=== PATIENT | male | born 1950 ===

== ENCOUNTER 2016-11-11 13:03 | Inpatient (IN) ==
[2016-11-11] MEDS ORDERED: BISACODYL 5 MG TABLET PO PRN (15:27)
[2016-11-11] MEDS ORDERED: ACETAMINOPHEN 325 MG TABLET PO PRN (15:27)
[2016-11-11] MEDS ORDERED: MAGNESIUM SULF RIDER 4 GM in PREMIX 1 EACH IV PRN (15:27)
[2016-11-11] MEDS ORDERED: ONDANSETRON 4 MG/2 ML VIAL IV PRN (15:27)
[2016-11-11] MEDS ORDERED: MAGNESIUM SULF RIDER 2 GM in PREMIX 1 EACH IV PRN ×2 (15:27→15:36)
[2016-11-11] MEDS ORDERED: ZALEPLON 5 MG CAPSULE PO PRN (15:27)
[2016-11-11] MEDS ORDERED: DOCUSATE SODIUM 100 MG CAPSULE PO PRN (15:27)
[2016-11-11] MEDS ORDERED: POTASSIUM CHLORIDE RIDER 10 MEQ in PREMIX 1 EACH IV PRN (15:36)
[2016-11-11] MEDS ORDERED: DIAZEPAM 5 MG TABLET PO ONE (15:36)
[2016-11-11] MEDS ORDERED: diphenhydrAMINE CAP 25 MG CAPSULE PO ONE (15:36)
--- NOTE | 2016-11-11 16:07 | Cardiology History & Physical ---
Assessment and Plan - Time spent with patient Time spent with patient: Greater than 30 minutes (1) Chest pain Status: Acute Assessment and plan: SEE PLAN OF CARE LISTED BELOW Current Visit: Yes (2) Coronary artery disease Status: Chronic Assessment and plan: SEE PLAN OF CARE LISTED BELOW Current Visit: Yes (3) Hypertension Status: Chronic Assessment and plan: SEE PLAN OF CARE LISTED BELOW Current Visit: Yes (4) Dyslipidemia Status: Chronic Assessment and plan: SEE PLAN OF CARE LISTED BELOW Current Visit: Yes (5) Diabetes Status: Chronic Assessment and plan: SEE PLAN OF CARE LISTED BELOW Current Visit: Yes (6) Ischemic cardiomyopathy Status: Chronic Assessment and plan: SEE PLAN OF CARE LISTED BELOW Current Visit: Yes History of Present Illness Chief complaint: chest pain, known coronary artery disease History of present illness: Mr. Jones is a 66 year old male routinely followed by Dr. Olson. He was last seen in cardiology clinic 07/11/2016. Risk factors include: Age, known coronary artery disease, hypertension, dyslipidemia, diabetes, obesity and sedentary lifestyle. History of ischemic cardiomyopathy, EF 35%, mild per echo July 2016. Last cardiac catheterization was 09/26/2015 with the following noted: Conclusions: 1: Total occlusion of the mid right coronary artery filling via collaterals from the left septal perforators. 2: Total occlusion of the circumflex coronary artery at a prior stented site 3: Diffuse moderate to severe left ventricular hypokinesis with ejection fraction estimated to be in the 35% range 4: Normal end-diastolic pressures at rest. Patient presented to [facility] with complaints of right shoulder pain radiating in through the center of his chest. He was seen in evaluated in the emergency department of [facility] and transferred as a direct admission to our telemetry unit. His cardiac biomarkers have been negative and his EKG is unremarkable. Chest pain has been occurring intermittently for several days. He can identify no aggravating nor any alleviating factors. It did not cause nausea, vomiting or shortness of breath. He is unable to rate the discomfort on a scale of 1-10 but he is currently chest pain-free. He describes the discomfort as sharp and squeezing. ASSESSMENT/PLAN: 1. CHEST PAIN - has a history of known coronary artery disease. Chest pain is suspicious for angina. Dr. Olson has seen this patient, interviewed and examined patient. He has recommended patient undergo cardiac catheterization and we will keep him nothing by mouth after midnight tonight for left heart catheterization, possible right radial approach. I will verify he has had a dose of Lovenox, aspirin. Continue beta blockers and lipid- lowering agents as well as an EVELIN inhibitor if his blood pressure will allow for such. 2. KNOWN CAD - complicated CAD 3. HYPERTENSION - resume beta blockade and EVELIN inhibitor if possible. Adjust medications accordingly during hospital stay 4. DYSLIPIDEMIA - continue lipid-lowering agent. Fasting lipid profile morning 5. DIABETES - sliding scale insulin 6. ICM - echocardiogram was performed July 2016. EF 35%. At this point, we can consider repeating echocardiogram on an outpatient basis. Home Medications Medication Instructions Recorded Confirmed Type Aspirin [Ecotrin] 81 mg PO DAILY 04/03/15 09/26/15 History Glipizide [Glipizide Xl] 10 mg PO DAILY 04/03/15 09/26/15 History Lisinopril [Prinivil] 20 mg PO DAILY 04/03/15 09/26/15 History Metoprolol Succinate Xl [Toprol Xl] 50 mg PO DAILY 04/03/15 09/26/15 History Simvastatin [Zocor] 40 mg PO DAILY 04/03/15 09/26/15 History Insulin Detemir [Levemir] 65 unit SUBCUT BEDTIME 09/26/15 09/26/15 History Allergies Allergy/AdvReac Type Severity Reaction Status Date / Time Penicillins Allergy RASH Verified 04/03/15 06:46 Review of systems: REVIEW OF SYSTEMS: - Constitutional Constitutional: Absent: syncope, anorexia, fatigue, night sweats - EENT Eyes: Absent: blurry vision, loss of vision, diplopia Ears: Absent: decreased hearing, ear pain, ear discharge - Cardiovascular Cardiovascular: Present: chest pain with exertion and with exertion. Denies, dyspnea on exertion, edema, palpitations. Absent: chest pain with deep breath, claudication - Respiratory Respiratory: Denies JONES, cough. Absent: wheezing, hemoptysis, change in phlegm color - Gastrointestinal Gastrointestinal: Denies: constipation. Absent: abdominal pain, hematemesis, hematochezia, melena, change in bowel habits, nausea - Genitourinary Genitourinary: Absent: difficulty urinating, dysuria, urinary hesitancy, flank pain - Musculoskeletal Musculoskeletal: Present: back pain Absent: joint swelling, muscle cramps, muscle weakness - Neurological Neurological: Present: normal gait without frequent falls. Absent: dizziness, hemiparesis - Psychiatric Psychiatric: Absent: anxiety, depression, difficulty concentrating - Endocrine Endocrine: Absent: cold intolerance, heat intolerance, polyuria, polyphagia, polydipsia - Hematologic/Lymphatic Hematologic/Lymphatic: Present: easy bruising. Absent: easy bleeding -Integumentary Integumentary: Absent: lesions, rashes, skin breakdown Medical,Surgical,& Family Hx - Medical History Cardio: History of: CAD, Hypertension, SD Neurology: No history of: Seizures Endocrine: History of: Diabetes Mellitus (NIDDM) Gastrointestinal: History of: GERD - Surgical History Cardiac Surgeries: Sugical HX of: Cardiac Catheterization, Cardiac Surgery ( stents x 2) Abdominal Surgeries: Surgical HX of: Colonoscopy Patient denies: Cholecystectomy - Family History Family History: Reports;: Family Cancer (father, mother), Family Diabetes ( father), Family Hypertension (father,mother) - Social History Smoking Status: Never smoker Have you smoked in the last 12 months: No Frequency of Alcohol Use: None Type of Drug Use: None Cardiology Physical Exam - Constitutional Vitals: Vital Signs Temp Pulse Resp BP Pulse Ox 97.9 F 84 18 157/72 100 11/11/16 15:40 11/11/16 15:40 11/11/16 15:40 11/11/16 15:40 11/11/16 15:40 Intake and Output 11/10/16 11/11/16 11/11/16 23:59 07:59 15:59 Other: Weight 100.244 kg Patient Weight 11/11/16 23:59 Weight 100.244 kg Exam: General: Appears well with no apparent distress. Pleasant and cooperative. Appears comfortable. HEENT: PERRL, normocephalic, atraumatic. Mucous membranes moist. No jaundice noted. Conjunctiva moist and clear, sclerae anicteric Neck: No JVD/HJR, no thyromegaly or lymphadenopathy noted. No carotid bruit appreciated Cardiac: Regular rate and rhythm. No murmur rub or gallop. Lungs: Clear to auscultation without accessory muscle use to assist the respiratory pattern. Not requiring oxygen. Abdomen: Soft, bowel sounds normoactive. Nontender and nondistended. No abdominal bruit or thrill noted. No masses noted. Musculoskeletal: No fluid collection. Decreased range of motion is noted. Extremities: No clubbing, cyanosis noted. No edema noted. Upper extremity pulses 2+. Lower extremity pulses 2+. Capillary refill less than 3 seconds. Skin: No unusual lesions or rashes. No skin breakdown appreciated. Neuro: Awake, alert and oriented 3. Moves all extremities well without hemiparesis or paralysis. No essential tremor is appreciated. Result/EKG - Labs Lab Results: I have reviewed the past 24 hour labs - Diagnostic Findings Procedure: Chest x-ray: pending - EKG EKG results: interpreted by me EKG shows: sinus rhythm Quality Measures - VTE Contraindication to Pharmacological VTE Prophylaxis: Already on Theraputic Agent , No Prophylaxis Needed
[2016-11-11] MEDS ORDERED: ENOXAPARIN 100 MG/ML SYRINGE SUBCUT ONE (16:17)
[2016-11-11] MEDS ORDERED: GLUCAGON 1 MG VIAL IM PRN (16:17)
[2016-11-11] MEDS ORDERED: DEXTROSE 50% 25 GM/50 ML VIAL IV PRN (16:17)
[2016-11-11] MEDS ORDERED: FUROSEMIDE 40 MG/4 ML VIAL IV ONE (16:19)
--- NOTE | 2016-11-11 16:39 | XRay Report ---
Exam: Chest 2 views Date: November 11, 2016 at 4:28 PM Comparison: Chest one view portable September 26, 2015 Reason: Shortness of breath Findings: The cardiac silhouette is again enlarged, and there is scattered calcified plaque at the thoracic aorta. No focal consolidation, pneumothorax or pleural effusion is identified. No acute osseous process is seen. Impression: 1. Cardiomegaly. 2. No acute pulmonary process is identified. PROCEDURE INTERPRETED AT [facility] DEPARTMENT OF RADIOLOGY Final Report Signed by: Dr. Favian Carbajal
[2016-11-11] MEDS: ASPIRIN 325 MG TABLET PO SCH (16:56)
[2016-11-11] MEDS: ISOSORBIDE MONONITRATE 30 MG TABLET PO SCH (16:57)
[2016-11-11] MEDS: SODIUM CHLORIDE 0.45% 1,000 ML IV SCH (16:57)
[2016-11-11 17:06] LABS: Basophils # 0.1 10*3/uL (0.0-0.2); Basophils % 0.5 % (0.0-0.8); Eosinophils # 0.3 10*3/uL (0.0-0.87); Eosinophils % 3.4 % (0.00-10.9); Hematocrit 47.6 VOL% (42.0-52.0); Hemoglobin 15.6 GM/DL (14.0-18.0); Immature Granulocytes % 0.1 %; Immature Granulocytes Absolute 0.01 #; Lymphocytes # 2.1 10*3/uL (1.4-4.0); Lymphocytes % 22.6 % (21.2-54.2); Mean Corpuscular HGB Conc 32.8 GM/DL (32-36); Mean Corpuscular Hemoglobin 28 PG (27-34); Mean Corpuscular Volume 84.1 FL (87-102); Mean Platelet Volume 10.1 FL (9.6-12.0); Monocytes # 0.8 10*3/uL (0.11-0.8); Monocytes % 8.6 % (1.7-12.7); Neutrophils # 6.1 10*3/uL (1.4-7.4); Neutrophils % 64.8 % (38.7-73.9); Platelet Count 205 T/CUMM (130-400); Red Blood Count 5.66 MC/CUMM (3.8-5.5); Red Cell Distribution Width 13.2 % (9.3-17.3); White Blood Count 9.4 T/CUMM (4-12)
[2016-11-11] MEDS: INSULIN REGULAR 100 UNIT/ML SUBCUT SCH ×2 (17:08→21:49)
[2016-11-11 17:27] LABS: Troponin I Only 0.016 NG/ML (0.00-0.045)
[2016-11-11 17:31] LABS: Alanine Aminotransferase 21 U/L (16-61); Albumin 3.4 G/DL (3.4-5.0); Alkaline Phosphatase 56 U/L (45-117); Aspartate Amino Transferase 12 U/L (0-37); Bilirubin,Total < 0.39 MG/DL (0.2-1.0); Blood Urea Nitrogen 22 MG/DL (7-18); Calcium 8.6 MG/DL (8.5-10.1); Glucose 296 MG/DL (74-106); Potassium 4.8 MMOL/L (3.5-5.1); Sodium 143 MMOL/L (136-145); Total Protein 7.1 G/DL (6.4-8.3)
[2016-11-11] MEDS: INSULIN GLARGINE 100 UNIT/ML SUBCUT SCH (21:47)
[2016-11-12 00:58] LABS: Basophils # 0.1 10*3/uL (0.0-0.2); Basophils % 0.6 % (0.0-0.8); Eosinophils # 0.3 10*3/uL (0.0-0.87); Eosinophils % 4.1 % (0.00-10.9); Hematocrit 45.7 VOL% (42.0-52.0); Hemoglobin 15.2 GM/DL (14.0-18.0); Immature Granulocytes % 0.3 %; Immature Granulocytes Absolute 0.02 #; Lymphocytes # 2.2 10*3/uL (1.4-4.0); Lymphocytes % 27.6 % (21.2-54.2); Mean Corpuscular HGB Conc 33.3 GM/DL (32-36); Mean Corpuscular Hemoglobin 28 PG (27-34); Mean Corpuscular Volume 82.8 FL (87-102); Mean Platelet Volume 10.6 FL (9.6-12.0); Monocytes # 0.7 10*3/uL (0.11-0.8); Monocytes % 9.2 % (1.7-12.7); Neutrophils # 4.6 10*3/uL (1.4-7.4); Neutrophils % 58.2 % (38.7-73.9); Platelet Count 222 T/CUMM (130-400); Red Blood Count 5.52 MC/CUMM (3.8-5.5); Red Cell Distribution Width 13.1 % (9.3-17.3); White Blood Count 7.9 T/CUMM (4-12)
[2016-11-12 01:58] LABS: Albumin 3.5 G/DL (3.4-5.0); Bilirubin,Total 0.6 MG/DL (0.2-1.0); Calcium 8.5 MG/DL (8.5-10.1); Osmolality,Calculated 295.4 MOS/KG (273-304); Potassium 4.5 MMOL/L (3.5-5.1); Risk Ratio 4.19; Total Protein 7.1 G/DL (6.4-8.3); Troponin I Only < 0.015 NG/ML (0.00-0.045); VLDL CHOLESTEROL 38.2 MG/DL
[2016-11-12] MEDS ORDERED: DIAZEPAM 5 MG TABLET PO ONE (07:00)
[2016-11-12] MEDS ORDERED: diphenhydrAMINE CAP 25 MG CAPSULE PO ONE (07:00)
[2016-11-12] MEDS: ASPIRIN 325 MG TABLET PO SCH ×2 (07:58→08:29)
[2016-11-12] MEDS: METOPROLOL SUCCINATE XL 50 MG TABLET PO SCH ×2 (07:58→08:29)
[2016-11-12 08:21] LABS: Troponin I Only 0.018 NG/ML (0.00-0.045)
[2016-11-12] MEDS: INSULIN REGULAR 100 UNIT/ML SUBCUT SCH ×4 (08:28→22:07)
[2016-11-12] MEDS ORDERED: NITROGLYCERIN DRIP 50 MG/250 ML BOTTLE IV ONE (08:44)
[2016-11-12] MEDS ORDERED: MIDAZOLAM 2 MG/2 ML VIAL ONE (08:44)
[2016-11-12] MEDS ORDERED: VERAPAMIL 5 MG/2 ML VIAL ONE (08:44)
[2016-11-12] MEDS ORDERED: HEPARIN/NACL 0.9% 2 UNITS/ML 1,000 ML IV ONE (08:44)
[2016-11-12] MEDS ORDERED: fentaNYL 100 MCG/2 ML VIAL ONE (08:44)
[2016-11-12] MEDS ORDERED: LIDOCAINE 1% 20 ML VIAL ONE (08:44)
[2016-11-12] MEDS ORDERED: ENOXAPARIN 60 MG/0.6 ML SYRINGE ONE (08:58)
--- NOTE | 2016-11-12 09:03 | History and Physical Update ---
Sedation H&P Update - Sedation Plan for Sedation: moderate Patient Consent: Procedure disscussed with patient and patinet has consented., Risks and benefits were discussed with patient,including infection,, bleeding, injury to surrounding structures, seizure, temporary nerve, Patient understands and accepts potential risks/benefits and agrees to, proceed. ASA Class: III Airway Assessment: Class III: Soft palate, base of uvula visible
--- NOTE | 2016-11-12 09:51 | Cardiac Catheterization ---
Date of Procedure:: 11/12/16 Pre-op Diagnosis: Accelerated anginal chest pain with history known coronary disease Post-op diagnosis: same Procedure: Procedures performed: Left heart catheterization Coronary arteriography Left ventriculography [Right] femoral sheath angiography Mynx closure femoral arteriotomy site After obtaining informed consent the patient was brought to the catheterization lab where the [right] groin and right wrist was prepped and draped in the usual sterile manner. We initially attempted catheterization on the right wrist per unable to pass a wire satisfactorily into the right radial artery. I think he was significant vasospasm which would not allow passage of the wire to the brachial artery. At this point we elected to abort the radial attempt and proceed from the femoral artery. After local anesthesia a needle stick was made to the right femoral artery and a [6 Mal[place] sheath] was positioned without difficulty. A left heart catheterization was undertaken using first a Butch left diagnostic catheter. The catheter was advanced under fluoroscopy over a guidewire and positioned with its tip in the ostium of the left main coronary artery. Multiple angiograms were obtained of the left coronary artery in multiple views. After adequate angiogram to left coronary obtain this catheter was withdrawn and an AMRM right coronary catheter was advanced over a guidewire under fluoroscopic control where angiography of the right coronary artery was undertaken in multiple views. After adequate angiograms of the right coronary artery were obtained this catheter was withdrawn. A pigtail ventriculographic catheter was advanced over a guidewire under fluoroscopic control to the ascending aorta where it was advanced across the aortic valve and intraventricular hemodynamics were measured. A ventriculogram was obtained in the LAWSON projection and afterward a pullback was obtained from the ventricle to the aorta under hemodynamic monitoring and removed. At this point the patient underwent right femoral sheath angiography which demonstrated anatomy appropriate for Mynx closure. This was performed without difficulty and good hemostasis was obtained. The patient then was transferred back to the oliva having suffered no significant immediate complications. Hemodynamics: Please see the accompanying data sheet Coronary arteriography: Left coronary artery: The left main coronary artery is "double barrel". The circumflex coronary artery is completely occluded at a prior proximal circumflex stent site. The left anterior descending coronary artery is a large vessel that extends around the apex of the ventricle. In the proximal portion of the LAD is a calcified discrete 80% stenosis. The remainder of the LAD and its branches appeared to be free of significant obstructing lesions. There are several small diagonal to have ostial 80% disease noted. Right coronary artery: Right coronary is a large codominant vessel that is completely occluded in its midportion. The distal right fills via collaterals from the septal perforators of the left. Ventriculography: After injection of contrast in the left ventricle is noted be mildly enlarged with diffuse severe left ventricular hypokinesis. There is an area of inferobasal akinesis. Overall ejection fraction measures in the 30% range. Mitral and aortic structures appear normal by ventriculography. Conclusions: 1: Severe [place] three-vessel coronary disease as outlined above 2: Ischemic cardio myopathy ejection fraction in the 30% range 3: Mildly elevated end-diastolic pressures at rest 4: Mynx closure right femoral arteriotomy site 5: Unsuccessful attempt at catheterization from the right radial artery. Discussion and recommendations: Patient presents with accelerated anginal chest pain. He's now progressed his LAD disease to the point that surgical intervention should be considered. I feel the best approach will be surgical revascularization I'll asked the surgeons to review. I discussed this with the patient. Surgeon / Physician: Yonis Olson - Medications / Follow-up
[2016-11-12] MEDS: SIMVASTATIN 40 MG TABLET PO SCH (11:02)
[2016-11-12] MEDS: ENOXAPARIN 100 MG/ML SYRINGE SUBCUT SCH ×2 (11:02→22:07)
[2016-11-12] MEDS: PANTOPRAZOLE 40 MG TABLET PO SCH (11:02)
[2016-11-12] MEDS: ISOSORBIDE MONONITRATE 30 MG TABLET PO SCH (11:02)
[2016-11-12] MEDS: SODIUM CHLORIDE 0.45% 1,000 ML IV SCH (11:03)
--- NOTE | 2016-11-12 13:19 | Cardiothoracic Progress Note ---
Cardiothoracic Subjective Interval history: Patient is a 66-year-old man who presents with a history of coronary artery disease and recent onset of increasing substernal chest discomfort. Cardiac catheterization today shows significant obstruction and anterior descending coronary artery which is the only patent major coronary artery left. The stented circumflex coronary artery is totally occluded as is the right coronary artery. I agree with Dr. Olson with the patient needs intravenous revascularization of his LAD and hopefully there will be vessels that can be grafted in the circumflex distribution as well as the right distribution. I've discussed this with him and he is agreeable to surgery and we will plan for this on Thursday. Patient is to remain in the hospital until then. Exam (Progress Note) - Constitutional Vitals: Period Temp Pulse Resp BP Sys/Wong Pulse Ox Last 24 Hr 96.3 F-98.0 F 63-84 16-20 137-163/66-94 92-100 Result/EKG - Labs CBC & BMP: 11/12/16 00:40 11/12/16 00:40 Labs: Laboratory Results - last 24 hr 11/11/16 11/11/16 11/11/16 16:48 16:48 16:48 WBC 9.4 RBC 5.66 H Hgb 15.6 Hct 47.6 MCV 84.1 L MCH 28 MCHC 32.8 RDW 13.2 Plt Count 205 MPV 10.1 Neut % (Auto) 64.8 Lymph % (Auto) 22.6 [place] % (Auto) 8.6 Eos % (Auto) 3.4 Baso % (Auto) 0.5 Neut # (Auto) 6.1 Lymph # (Auto) 2.1 Cedar # (Auto) 0.8 Eos # (Auto) 0.3 Baso # (Auto) 0.1 Immature Gran % 0.1 Nucleated RBC % 0.0 Immature Gran # 0.01 Nucleated RBCs # 0.00 Sodium 143 Potassium 4.8 Chloride 106 Carbon Dioxide 26 Anion Gap 15.8 H BUN 22 H Creatinine 1.20 GFR Calculation 79 BUN/Creatinine Ratio 18.00 Glucose 296 H POC Glucose Calculated Osmolality 298.0 Calcium 8.6 Total Bilirubin < 0.39 AST 12 ALT 21 Alkaline Phosphatase 56 Total Creatine Kinase CK-MB (CK-2) Troponin I B-Natriuretic Peptide 192 H Total Protein 7.1 Albumin 3.4 Globulin 3.7 H Albumin/Globulin Ratio 0.9 L Triglycerides Cholesterol LDL Cholesterol VLDL Cholesterol HDL Cholesterol Heart Disease Risk Ratio TSH 3rd Generation 1.760 11/11/16 11/11/16 11/11/16 16:48 17:06 21:11 WBC RBC Hgb Hct MCV MCH MCHC RDW Plt Count MPV Neut % (Auto) Lymph % (Auto) [place] % (Auto) Eos % (Auto) Baso % (Auto) Neut # (Auto) Lymph # (Auto) [place] # (Auto) Eos # (Auto) Baso # (Auto) Immature Gran % Nucleated RBC % Immature Gran # Nucleated RBCs # Sodium Potassium Chloride Carbon Dioxide Anion Gap BUN Creatinine GFR Calculation BUN/Creatinine Ratio Glucose POC Glucose 279 H 289 H Calculated Osmolality Calcium Total Bilirubin AST ALT Alkaline Phosphatase Total Creatine Kinase 81 CK-MB (CK-2) 1.9 Troponin I 0.016 B-Natriuretic Peptide Total Protein Albumin Globulin Albumin/Globulin Ratio Triglycerides Cholesterol LDL Cholesterol VLDL Cholesterol HDL Cholesterol Heart Disease Risk Ratio TSH 3rd Generation 11/12/16 11/12/16 11/12/16 00:40 00:40 00:40 WBC 7.9 RBC 5.52 H Hgb 15.2 Hct 45.7 MCV 82.8 L MCH 28 MCHC 33.3 RDW 13.1 Plt Count 222 MPV 10.6 Neut % (Auto) 58.2 Lymph % (Auto) 27.6 [place]edar % (Auto) 9.2 Eos % (Auto) 4.1 Baso % (Auto) 0.6 Neut # (Auto) 4.6 Lymph # (Auto) 2.2 Cedar # (Auto) 0.7 Eos # (Auto) 0.3 Baso # (Auto) 0.1 Immature Gran % 0.3 Nucleated RBC % 0.0 Immature Gran # 0.02 Nucleated RBCs # 0.00 Sodium 140 Potassium 4.5 Chloride 101 Carbon Dioxide 27 Anion Gap 16.5 H BUN 23 H Creatinine 1.30 GFR Calculation 72 BUN/Creatinine Ratio 17.00 Glucose 334 H POC Glucose Calculated Osmolality 295.4 Calcium 8.5 Total Bilirubin 0.60 AST 10 ALT 21 Alkaline Phosphatase 59 Total Creatine Kinase 72 CK-MB (CK-2) 1.6 Troponin I < 0.015 B-Natriuretic Peptide Total Protein 7.1 Albumin 3.5 Globulin 3.6 H Albumin/Globulin Ratio 0.9 L Triglycerides 191 H Cholesterol 155 LDL Cholesterol 108.0 VLDL Cholesterol 38.2 HDL Cholesterol 37 L Heart Disease Risk Ratio 4.19 [facility] 3rd Generation 11/12/16 11/12/16 11/12/16 00:40 07:22 08:17 WBC RBC Hgb Hct MCV MCH MCHC RDW Plt Count MPV Neut % (Auto) Lymph % (Auto) [place]edar % (Auto) Eos % (Auto) Baso % (Auto) Neut # (Auto) Lymph # (Auto) [place] # (Auto) Eos # (Auto) Baso # (Auto) Immature Gran % Nucleated RBC % Immature Gran # Nucleated RBCs # Sodium Potassium Chloride Carbon Dioxide Anion Gap BUN Creatinine GFR Calculation BUN/Creatinine Ratio Glucose POC Glucose 140 H Calculated Osmolality Calcium Total Bilirubin AST ALT Alkaline Phosphatase Total Creatine Kinase 80 CK-MB (CK-2) 1.6 Troponin I 0.018 B-Natriuretic Peptide 190 H Total Protein Albumin Globulin Albumin/Globulin Ratio Triglycerides Cholesterol LDL Cholesterol VLDL Cholesterol HDL Cholesterol Heart Disease Risk Ratio [facility] 3rd Generation 11/12/16 11:59 WBC RBC Hgb Hct MCV MCH MCHC RDW Plt Count MPV Neut % (Auto) Lymph % (Auto) Cedar % (Auto) Eos % (Auto) Baso % (Auto) Neut # (Auto) Lymph # (Auto) Cedar # (Auto) Eos # (Auto) Baso # (Auto) Immature Gran % Nucleated RBC % Immature Gran # Nucleated RBCs # Sodium Potassium Chloride Carbon Dioxide Anion Gap BUN Creatinine GFR Calculation BUN/Creatinine Ratio Glucose POC Glucose 107 H Calculated Osmolality Calcium Total Bilirubin AST ALT Alkaline Phosphatase Total Creatine Kinase CK-MB (CK-2) Troponin I B-Natriuretic Peptide Total Protein Albumin Globulin Albumin/Globulin Ratio Triglycerides Cholesterol LDL Cholesterol VLDL Cholesterol HDL Cholesterol Heart Disease Risk Ratio [facility] 3rd Generation Quality Measures - VTE Contraindication to Pharmacological VTE Prophylaxis: Already on Theraputic Agent , No Prophylaxis Needed
[2016-11-12] MEDS ORDERED: GLUCAGON 1 MG VIAL IM PRN (13:20)
[2016-11-12] MEDS ORDERED: DEXTROSE 50% 25 GM/50 ML VIAL IV PRN (13:20)
[2016-11-12] MEDS: SODIUM CHLORIDE 0.9% 1,000 ML IV SCH (13:49)
--- NOTE | 2016-11-12 14:15 | Cardiology Progress Note ---
Assessment and Plan (1) Coronary artery disease Status: Chronic Assessment and plan: He is for surgical revascularization. I appreciate Dr. Andrade's assistance Current Visit: Yes Cardiology - PN: Subj Interval history: This patient is undergoing cardiac catheterization demonstrating multivessel disease for surgical revascularization. He is stable and doing well and our plan will be to continue anticoagulation and antianginals awaiting surgery. Exam (Progress Note) - Constitutional Vitals: Period Temp Pulse Resp BP Sys/Wong Pulse Ox Last 24 Hr 96.3 F-98.0 F 63-84 16-20 137-182/66-94 92-100 Result/EKG - Labs CBC & BMP: 11/12/16 00:40 11/12/16 00:40 Labs: Laboratory Results - last 24 hr 11/11/16 11/11/16 11/11/16 16:48 16:48 16:48 WBC 9.4 RBC 5.66 H Hgb 15.6 Hct 47.6 MCV 84.1 L MCH 28 MCHC 32.8 RDW 13.2 Plt Count 205 MPV 10.1 Neut % (Auto) 64.8 Lymph % (Auto) 22.6 [place] % (Auto) 8.6 Eos % (Auto) 3.4 Baso % (Auto) 0.5 Neut # (Auto) 6.1 Lymph # (Auto) 2.1 [place] # (Auto) 0.8 Eos # (Auto) 0.3 Baso # (Auto) 0.1 Immature Gran % 0.1 Nucleated RBC % 0.0 Immature Gran # 0.01 Nucleated RBCs # 0.00 Sodium 143 Potassium 4.8 Chloride 106 Carbon Dioxide 26 Anion Gap 15.8 H BUN 22 H Creatinine 1.20 GFR Calculation 79 BUN/Creatinine Ratio 18.00 Glucose 296 H POC Glucose Calculated Osmolality 298.0 Calcium 8.6 Total Bilirubin < 0.39 AST 12 ALT 21 Alkaline Phosphatase 56 Total Creatine Kinase CK-MB (CK-2) Troponin I B-Natriuretic Peptide 192 H Total Protein 7.1 Albumin 3.4 Globulin 3.7 H Albumin/Globulin Ratio 0.9 L Triglycerides Cholesterol LDL Cholesterol VLDL Cholesterol HDL Cholesterol Heart Disease Risk Ratio TSH 3rd Generation 1.760 11/11/16 11/11/16 11/11/16 16:48 17:06 21:11 WBC RBC Hgb Hct MCV MCH MCHC RDW Plt Count MPV Neut % (Auto) Lymph % (Auto) [place] % (Auto) Eos % (Auto) Baso % (Auto) Neut # (Auto) Lymph # (Auto) [place] # (Auto) Eos # (Auto) Baso # (Auto) Immature Gran % Nucleated RBC % Immature Gran # Nucleated RBCs # Sodium Potassium Chloride Carbon Dioxide Anion Gap BUN Creatinine GFR Calculation BUN/Creatinine Ratio Glucose POC Glucose 279 H 289 H Calculated Osmolality Calcium Total Bilirubin AST ALT Alkaline Phosphatase Total Creatine Kinase 81 CK-MB (CK-2) 1.9 Troponin I 0.016 B-Natriuretic Peptide Total Protein Albumin Globulin Albumin/Globulin Ratio Triglycerides Cholesterol LDL Cholesterol VLDL Cholesterol HDL Cholesterol Heart Disease Risk Ratio [facility] 3rd Generation 11/12/16 11/12/16 11/12/16 00:40 00:40 00:40 WBC 7.9 RBC 5.52 H Hgb 15.2 Hct 45.7 MCV 82.8 L MCH 28 MCHC 33.3 RDW 13.1 Plt Count 222 MPV 10.6 Neut % (Auto) 58.2 Lymph % (Auto) 27.6 [place] % (Auto) 9.2 Eos % (Auto) 4.1 Baso % (Auto) 0.6 Neut # (Auto) 4.6 Lymph # (Auto) 2.2 [place] # (Auto) 0.7 Eos # (Auto) 0.3 Baso # (Auto) 0.1 Immature Gran % 0.3 Nucleated RBC % 0.0 Immature Gran # 0.02 Nucleated RBCs # 0.00 Sodium 140 Potassium 4.5 Chloride 101 Carbon Dioxide 27 Anion Gap 16.5 H BUN 23 H Creatinine 1.30 GFR Calculation 72 BUN/Creatinine Ratio 17.00 Glucose 334 H POC Glucose Calculated Osmolality 295.4 Calcium 8.5 Total Bilirubin 0.60 AST 10 ALT 21 Alkaline Phosphatase 59 Total Creatine Kinase 72 CK-MB (CK-2) 1.6 Troponin I < 0.015 B-Natriuretic Peptide Total Protein 7.1 Albumin 3.5 Globulin 3.6 H Albumin/Globulin Ratio 0.9 L Triglycerides 191 H Cholesterol 155 LDL Cholesterol 108.0 VLDL Cholesterol 38.2 HDL Cholesterol 37 L Heart Disease Risk Ratio 4.19 [facility] 3rd Generation 11/12/16 11/12/16 11/12/16 00:40 07:22 08:17 WBC RBC Hgb Hct MCV MCH MCHC RDW Plt Count MPV Neut % (Auto) Lymph % (Auto) [place] % (Auto) Eos % (Auto) Baso % (Auto) Neut # (Auto) Lymph # (Auto) [place] # (Auto) Eos # (Auto) Baso # (Auto) Immature Gran % Nucleated RBC % Immature Gran # Nucleated RBCs # Sodium Potassium Chloride Carbon Dioxide Anion Gap BUN Creatinine GFR Calculation BUN/Creatinine Ratio Glucose POC Glucose 140 H Calculated Osmolality Calcium Total Bilirubin AST ALT Alkaline Phosphatase Total Creatine Kinase 80 CK-MB (CK-2) 1.6 Troponin I 0.018 B-Natriuretic Peptide 190 H Total Protein Albumin Globulin Albumin/Globulin Ratio Triglycerides Cholesterol LDL Cholesterol VLDL Cholesterol HDL Cholesterol Heart Disease Risk Ratio [facility] 3rd Generation 11/12/16 11:59 WBC RBC Hgb Hct MCV MCH MCHC RDW Plt Count MPV Neut % (Auto) Lymph % (Auto) [place] % (Auto) Eos % (Auto) Baso % (Auto) Neut # (Auto) Lymph # (Auto) [place] # (Auto) Eos # (Auto) Baso # (Auto) Immature Gran % Nucleated RBC % Immature Gran # Nucleated RBCs # Sodium Potassium Chloride Carbon Dioxide Anion Gap BUN Creatinine GFR Calculation BUN/Creatinine Ratio Glucose POC Glucose 107 H Calculated Osmolality Calcium Total Bilirubin AST ALT Alkaline Phosphatase Total Creatine Kinase CK-MB (CK-2) Troponin I B-Natriuretic Peptide Total Protein Albumin Globulin Albumin/Globulin Ratio Triglycerides Cholesterol LDL Cholesterol VLDL Cholesterol HDL Cholesterol Heart Disease Risk Ratio TSH 3rd Generation Quality Measures - VTE Contraindication to Pharmacological VTE Prophylaxis: Already on Theraputic Agent , No Prophylaxis Needed
--- NOTE | 2016-11-12 15:46 | Hospitalist Consult Note ---
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 Jones is a 66 year old male consulted per cardiology for diabetes management. He has had a cardiac cath today and is to have bipass surgery on thursday11/17/2016. He states he has been controlled at home with BS 140 -200. states he is suppose to take Levemir SQ 60U in am and 65U in pm but he has been taking 60U at bedtime because he is too busy to take it in the morning. He has no history of CHF. CC: Yonis Olson MD - Home Medications and Allergies Home Medications: Home Medications Medication Instructions Recorded Confirmed Type Aspirin [Ecotrin] 81 mg PO DAILY 04/03/15 11/11/16 History Glipizide [Glipizide Xl] 10 mg PO DAILY 04/03/15 11/11/16 History Lisinopril [Prinivil] 20 mg PO DAILY 04/03/15 11/11/16 History Metoprolol Succinate Xl [Toprol Xl] 50 mg PO DAILY 04/03/15 11/11/16 History Simvastatin [Zocor] 40 mg PO DAILY 04/03/15 11/11/16 History Isosorbide Mononitrate [Isosorbide 30 mg PO DAILY 11/11/16 11/11/16 History Mononitrate ER] Saxagliptin HCl [Onglyza] 2.5 mg PO DAILY 11/11/16 11/11/16 History Allergies/Adverse Reactions: Allergies Allergy/AdvReac Type Severity Reaction Status Date / Time Penicillins Allergy RASH Verified 04/03/15 06:46 Medical,Surgical,& Family Hx - Medical History Cardio: History of: CAD, Hypertension, CA Neurology: No history of: Seizures Endocrine: History of: Diabetes Mellitus (NIDDM) Gastrointestinal: History of: GERD - Surgical History Cardiac Surgeries: Sugical HX of: Cardiac Catheterization, Cardiac Surgery ( stents x 2) Abdominal Surgeries: Surgical HX of: Colonoscopy Patient denies: Cholecystectomy - Family History Family History: Reports;: Family Cancer (father, mother), Family Diabetes ( father), Family Hypertension (father,mother) - Social History Smoking Status: Never smoker Frequency of Alcohol Use: None Type of Drug Use: None - Constitutional Constitutional: Absent: chills, fever(s) - EENT Nose, mouth and throat: Absent: nasal congestion, sore throat - Respiratory Respiratory: Absent: cough, wheezing - Gastrointestinal Gastrointestinal: Absent: abdominal pain, bloating, nausea, vomiting - Neurological Neurological: Absent: confusion, headache(s), syncope - Psychiatric Psychiatric: Absent: confusion Exam - Constitutional Vitals: Period Temp Pulse Resp BP Sys/Wong Pulse Ox Last 24 Hr 96.3 F-98.0 F 63-81 16-20 124-182/66-94 92-98 General appearance: no no acute distress - Head Head exam: Present: normocephalic - Neck Neck exam: Present: normal inspection - Respiratory Respiratory exam: Present: clear to auscultation bilaterally. Absent: chest wall tenderness, rales, rhonchi, wheezes - Cardiovascular Cardiovascular exam: Present: regular rate and rhythm - GI/Abdominal GI/Abdominal exam: Present: soft. Absent: distended, guarding, tenderness, rebound - Skin Skin exam: Present: warm, dry Results - Labs CBC & BMP: 11/12/16 00:40 11/12/16 00:40 Quality Measures - VTE Contraindication to Pharmacological VTE Prophylaxis: Already on Theraputic Agent , No Prophylaxis Needed <Breanna Ramirez - Last Filed: 11/12/16 17:35> Assessment and Plan (1) Chest pain Status: Acute Assessment and plan: Status post cardiac cath shows three-vessel disease plan for CABG on Thursday, currently chest pain-free Current Visit: Yes (2) Coronary artery disease Status: Chronic Assessment and plan: Status post cardiac cath severe coronary disease 3 vessels with an EF of 30% Current Visit: Yes (3) Hypertension Status: Chronic Assessment and plan: Well controlled continue coreg, isosorbide, losartan Current Visit: Yes (4) Dyslipidemia Status: Chronic Assessment and plan: Cholesterol numbers look good continue simvastatin Current Visit: Yes (5) Diabetes Status: Chronic Assessment and plan: Patient was started on Lantus 65 units at bedtime. Hemoglobin A1c is 10.2 blood sugars much better today. 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 Jones is a 66 year old male seen and examined. Consultation reviewed and edited. Plan for CABG on Thursday. We will check an hemoglobin A1c and an ABG CC: Yonis Olson MD Medical,Surgical,& Family Hx - Social History Marital Status: Lives With:: Spouse Functional capacity: independent ambulation - Constitutional Constitutional: Absent: headache(s) - EENT Eyes: Absent: blurry vision, diplopia Ears: Absent: decreased hearing, ear discharge - Cardiovascular Cardiovascular: Present: chest pain at rest. Absent: dyspnea, dyspnea on exertion, edema - Respiratory Respiratory: Absent: dyspnea, dyspnea on exertion - Genitourinary Genitourinary: Absent: dysuria, nocturia - Musculoskeletal Musculoskeletal: Absent: arthralgias, joint swelling - Psychiatric Psychiatric: Absent: depression - Endocrine Endocrine: Present: fatigue. Absent: cold intolerance, heat intolerance - Hematologic/Lymphatic Hematologic/Lymphatic: Absent: easy bleeding, easy bruising Exam - Constitutional Vitals: Period Temp Pulse Resp BP Sys/Wong Pulse Ox Last 24 Hr 96.3 F-98.0 F 63-81 16-20 124-182/62-94 92-98 General appearance: no over weight - Head Head exam: Present: normal inspection - Eye Eye exam: Present: EOMI. Absent: scleral icterus Pupils: Present: ELBA, normal accommodation - ENT ENT exam: Present: normal exam, normal external ear exam - Cardiovascular Cardiovascular exam: Absent: systolic murmur - Extremities Exam Extremities exam: Present: normal inspection, normal capillary refill - Neurological Exam Neurological exam: Present: alert, oriented X3, CN II-XII intact, reflexes normal. Absent: motor sensory deficit - Psychiatric Psychiatric exam: Present: normal affect, normal mood Results - Labs CBC & BMP: 11/12/16 00:40 11/12/16 00:40 Lab Results: I have reviewed the past 24 hour labs - Diagnostic Findings Procedure: Chest x-ray: report reviewed by me (nothing acute )
[2016-11-12] MEDS: CARVEDILOL 6.25 MG TABLET PO SCH (22:07)
[2016-11-12] MEDS: INSULIN GLARGINE 100 UNIT/ML SUBCUT SCH (22:08)
[2016-11-13 04:07] LABS: ABG Base Excess 1.3 MMOL/L (-2.5-2.5); ABG HCO3 24.8 MMOL/L (20-26); ABG Oxygen Saturation 94.6 % (95-100); ABG PCO2 35.8 MM HG (35-48); ABG PH 7.458 (7.35-7.45); ABG PO2 71.5 MM HG (80-95); ABG TCO2 25.9 MMOL/L (23-27); Allen Test Positive; Pt O2 Delivery Device Room Air
--- NOTE | 2016-11-13 06:23 | Cardiothoracic Progress Note ---
Cardiothoracic Subjective Interval history: Patient is pain-free and is agreeable to remaining in the hospital until bypass surgery on Thursday. Exam (Progress Note) - Constitutional Vitals: Period Temp Pulse Resp BP Sys/Wong Pulse Ox Last 24 Hr 97.0 F-98.0 F 63-81 16-20 124-182/62-94 94-99 Result/EKG - Labs CBC & BMP: 11/12/16 00:40 11/12/16 00:40 Labs: Laboratory Results - last 24 hr 11/12/16 11/12/16 11/12/16 07:22 08:17 11:59 ABG pH ABG pCO2 ABG pO2 ABG HCO3 ABG Total CO2 ABG O2 Saturation ABG Base Excess FiO2 POC Glucose 140 H 107 H Hemoglobin A1c Total Creatine Kinase 80 CK-MB (CK-2) 1.6 Troponin I 0.018 11/12/16 11/12/16 11/12/16 15:56 16:02 19:06 ABG pH ABG pCO2 ABG pO2 ABG HCO3 ABG Total CO2 ABG O2 Saturation ABG Base Excess FiO2 POC Glucose 154 H 179 H Hemoglobin A1c 10.2 H Total Creatine Kinase CK-MB (CK-2) Troponin I 11/13/16 04:00 ABG pH 7.458 H ABG pCO2 35.8 ABG pO2 71.5 L ABG HCO3 24.8 ABG Total CO2 25.9 ABG O2 Saturation 94.6 L ABG Base Excess 1.3 FiO2 21.00 POC Glucose Hemoglobin A1c Total Creatine Kinase CK-MB (CK-2) Troponin I Quality Measures - VTE Contraindication to Pharmacological VTE Prophylaxis: Already on Theraputic Agent , No Prophylaxis Needed
[2016-11-13 06:39] LABS: Basophils % 0.5 % (0.0-0.8); Eosinophils # 0.3 10*3/uL (0.0-0.87); Eosinophils % 3.9 % (0.00-10.9); Hematocrit 46.1 VOL% (42.0-52.0); Hemoglobin 15.4 GM/DL (14.0-18.0); Immature Granulocytes % 0.3 %; Immature Granulocytes Absolute 0.02 #; Lymphocytes # 1.9 10*3/uL (1.4-4.0); Lymphocytes % 24.7 % (21.2-54.2); Mean Corpuscular HGB Conc 33.4 GM/DL (32-36); Mean Corpuscular Hemoglobin 28 PG (27-34); Mean Corpuscular Volume 82.3 FL (87-102); Monocytes # 0.8 10*3/uL (0.11-0.8); Neutrophils # 4.7 10*3/uL (1.4-7.4); Neutrophils % 60.6 % (38.7-73.9); Platelet Count 208 T/CUMM (130-400); White Blood Count 7.7 T/CUMM (4-12)
[2016-11-13 07:12] LABS: Bilirubin,Total 0.5 MG/DL (0.2-1.0); Calcium 8.2 MG/DL (8.5-10.1); Osmolality,Calculated 289.7 MOS/KG (273-304); Potassium 4.5 MMOL/L (3.5-5.1); Total Protein 6.4 G/DL (6.4-8.3)
--- NOTE | 2016-11-13 07:47 | XRay Report ---
Exam: XR chest 2V Date: 11/13/2016 7:41 AM Indication: Coronary artery disease Comparison: 11/11/2016 Technical: PA lateral Findings: Cardiomegaly is present with ASVD. Mild interstitial thickening in the infrahilar region on the left. Small granulomas suspected reticular nodular densities in the right upper mid chest measuring approximately 3 to 4 mm. Degenerative changes are present thoracic spine mildly. External cardiac leads are present. No pneumothorax. Impression: 1. Cardiomegaly without overt decompensation present. PROCEDURE INTERPRETED AT [facility] DEPARTMENT OF RADIOLOGY Final Report Signed by: Dr. Rafael Jessica
--- NOTE | 2016-11-13 07:49 | EKG Report ---
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
[2016-11-13] MEDS: INSULIN REGULAR 100 UNIT/ML SUBCUT SCH ×4 (09:05→21:01)
[2016-11-13] MEDS: CARVEDILOL 6.25 MG TABLET PO SCH ×2 (09:49→21:00)
[2016-11-13] MEDS: SIMVASTATIN 40 MG TABLET PO SCH (09:49)
[2016-11-13] MEDS: PANTOPRAZOLE 40 MG TABLET PO SCH (09:49)
[2016-11-13] MEDS: ASPIRIN EC 81 MG TABLET PO SCH (09:49)
[2016-11-13] MEDS: LOSARTAN 25 MG TABLET PO SCH (09:50)
[2016-11-13] MEDS: ISOSORBIDE MONONITRATE 30 MG TABLET PO SCH (09:50)
[2016-11-13] MEDS: ENOXAPARIN 100 MG/ML SYRINGE SUBCUT SCH ×2 (09:51→23:14)
[2016-11-13] MEDS: SODIUM CHLORIDE 0.45% 1,000 ML IV SCH (10:36)
--- NOTE | 2016-11-13 14:23 | Cardiology Progress Note ---
I, Sona Rodriguez RN, am scribing for, and in the presence of, Yonis Olson MD 14:23. Assessment and Plan (1) Coronary artery disease Status: Chronic Assessment and plan: Patient is status post a left heart catheterization yesterday. He was noted to have multivessel disease and is for surgical revascularization. Dr. Andrade was consulted and saw the patient yesterday. He plans for CABG Thursday. We will continue anticoagulation and anginal while patient awaits surgery. 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 Current Visit: Yes (4) Hypertension Status: Chronic Assessment and plan: This is clinically stable. Continue current plan of care. Current Visit: Yes (5) Ischemic cardiomyopathy Status: Chronic Assessment and plan: echocardiogram was performed July 2016. EF 35%. At this point, we can consider repeating echocardiogram on an outpatient basis. Current Visit: Yes Cardiology - PN: Subj Interval history: Patient is status post a left heart catheterization yesterday. He was noted to have multivessel disease and is for surgical revascularization. Dr. Andrade was consulted and saw the patient yesterday. He plans for CABG Thursday. We will continue anticoagulation and anginal while patient awaits surgery. Patient was seen on telemetry. He was resting in bed in no acute distress. He did well overnight and was without any new cardiac complaints. Currently he is chest pain-free. He also denies shortness of breath, nausea, diaphoresis and palpitations. His right groin is soft without hematoma, bleeding or bruit. Distal pulses are 2+. Vital signs are stable. Review of labs are unremarkable. Patient is currently sinus rhythm with heart rates in the 70s without any overt arrhythmias or ectopy noted. We will continue to monitor patient on telemetry. This patient continues stable. His cath site is healing well and not having any significant problems and her plan is to continue close follow-up and observation anticipating coronary bypass grafting on 17 January. I have discussed in detail the particulars of this case and I have examined the patient and reviewed the patient's chart both current and old. I was directly involved in the patient's evaluation and management and I completely agree with Sona Rodriguez RN regarding this patient's evaluation and treatment plan. Exam (Progress Note) - Constitutional Vitals: Period Temp Pulse Resp BP Sys/Wong Pulse Ox Last 24 Hr 97.0 F-98.0 F 63-81 16-20 124-182/62-94 94-99 General appearance: no acute distress, over weight - Head Head exam: Present: normal inspection, normocephalic, atraumatic - Neck Neck exam: Present: normal inspection. Absent: lymphadenopathy, tenderness, thyromegaly - Respiratory Respiratory exam: Present: clear to auscultation bilaterally. Absent: accessory muscle use, chest wall tenderness, rales, rhonchi, stridor, wheezes - Cardiovascular Cardiovascular exam: Present: regular rate and rhythm. Absent: bradycardia, carotid bruit, gallop, rubs, systolic murmur, tachycardia - GI/Abdominal GI/Abdominal exam: Present: normal bowel sounds, soft. Absent: distended, firm , mass, tenderness - Extremities Exam Extremities exam: Present: normal inspection, normal capillary refill, other (2 + lower extremity pulses, right groin dressing dry and intact.). Absent: calf tenderness, edema - Neurological Exam Neurological exam: Present: alert, oriented X3 - Psychiatric Psychiatric exam: Present: normal affect, normal mood. Absent: agitated, anxious, depressed - Skin Skin exam: Present: normal color, warm, dry. Absent: cyanosis Result/EKG - Labs CBC & BMP: 11/13/16 05:11 11/13/16 05:11 Lab Results: I have reviewed the past 24 hour labs Labs: Laboratory Results - last 24 hr 11/12/16 11/12/16 11/12/16 11:59 15:56 16:02 WBC RBC Hgb Hct MCV MCH MCHC RDW Plt Count MPV Neut % (Auto) Lymph % (Auto) [place] % (Auto) Eos % (Auto) Baso % (Auto) Neut # (Auto) Lymph # (Auto) [place] # (Auto) Eos # (Auto) Baso # (Auto) Immature Gran % Nucleated RBC % Immature Gran # Nucleated RBCs # ABG pH ABG pCO2 ABG pO2 ABG HCO3 ABG Total CO2 ABG O2 Saturation ABG Base Excess FiO2 Sodium Potassium Chloride Carbon Dioxide Anion Gap BUN Creatinine GFR Calculation BUN/Creatinine Ratio Glucose POC Glucose 107 H 154 H Hemoglobin A1c 10.2 H Calculated Osmolality Calcium Total Bilirubin AST ALT Alkaline Phosphatase Total Protein Albumin Globulin Albumin/Globulin Ratio 11/12/16 11/13/16 11/13/16 19:06 04:00 05:11 WBC 7.7 RBC 5.60 H Hgb 15.4 Hct 46.1 MCV 82.3 L MCH 28 MCHC 33.4 RDW 13.0 Plt Count 208 MPV 11.0 Neut % (Auto) 60.6 Lymph % (Auto) 24.7 [place] % (Auto) 10.0 Eos % (Auto) 3.9 Baso % (Auto) 0.5 Neut # (Auto) 4.7 Lymph # (Auto) 1.9 [place] # (Auto) 0.8 Eos # (Auto) 0.3 Baso # (Auto) 0.0 Immature Gran % 0.3 Nucleated RBC % 0.0 Immature Gran # 0.02 Nucleated RBCs # 0.00 ABG pH 7.458 H ABG pCO2 35.8 ABG pO2 71.5 L ABG HCO3 24.8 ABG Total CO2 25.9 ABG O2 Saturation 94.6 L ABG Base Excess 1.3 FiO2 21.00 Sodium Potassium Chloride Carbon Dioxide Anion Gap BUN Creatinine GFR Calculation BUN/Creatinine Ratio Glucose POC Glucose 179 H Hemoglobin A1c Calculated Osmolality Calcium Total Bilirubin AST ALT Alkaline Phosphatase Total Protein Albumin Globulin Albumin/Globulin Ratio 11/13/16 11/13/16 05:11 08:09 WBC RBC Hgb Hct MCV MCH MCHC RDW Plt Count MPV Neut % (Auto) Lymph % (Auto) [place] % (Auto) Eos % (Auto) Baso % (Auto) Neut # (Auto) Lymph # (Auto) [place] # (Auto) Eos # (Auto) Baso # (Auto) Immature Gran % Nucleated RBC % Immature Gran # Nucleated RBCs # ABG pH ABG pCO2 ABG pO2 ABG HCO3 ABG Total CO2 ABG O2 Saturation ABG Base Excess FiO2 Sodium 145 Potassium 4.5 Chloride 107 Carbon Dioxide 28 Anion Gap 14.5 BUN 17 Creatinine 1.20 GFR Calculation 79 BUN/Creatinine Ratio 14.00 Glucose 103 POC Glucose 83 Hemoglobin A1c Calculated Osmolality 289.7 Calcium 8.2 L Total Bilirubin 0.50 AST 11 ALT 20 Alkaline Phosphatase 42 L Total Protein 6.4 Albumin 3.0 L Globulin 3.4 Albumin/Globulin Ratio 0.8 L - EKG EKG results: interpreted by me, sinus rhythm Quality Measures - VTE Contraindication to Pharmacological VTE Prophylaxis: Already on Theraputic Agent , No Prophylaxis Needed Wesley Alejo Wesley, MD, personally performed the services described in this documentation, ascribed by Sona Rodriguez RN in my presence, and it is both accurate and complete .
--- NOTE | 2016-11-13 15:13 | Hospitalist Progress Note ---
Assessment and Plan (1) Chest pain Status: Acute Assessment and plan: Status post cardiac cath shows three-vessel disease plan for CABG on Thursday Current Visit: Yes (2) Coronary artery disease Status: Chronic Assessment and plan: Status post cardiac cath severe coronary disease 3 vessels with an EF of 30% Current Visit: Yes (3) Hypertension Status: Chronic Assessment and plan: Well controlled continue coreg, isosorbide, losartan Current Visit: Yes (4) Dyslipidemia Status: Chronic Assessment and plan: continue simvastatin Current Visit: Yes (5) Diabetes Status: Chronic Assessment and plan: cont Lantus 65 units at bedtime. 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 Blood sugars are still running a little bit high before meals Exam - Constitutional Vitals: Period Temp Pulse Resp BP Sys/Wong Pulse Ox Last 24 Hr 97.0 F-98.0 F 72-82 16-20 119-151/62-85 94-100 Exam: Heart Rate-[RRR] Lungs-[CTAB] GI-[+bs soft, NT] Ext-[no edema] Results - Labs CBC & BMP: 11/13/16 05:11 11/13/16 05:11 Lab Results: I have reviewed the past 24 hour labs Quality Measures - VTE Contraindication to Pharmacological VTE Prophylaxis: Already on Theraputic Agent , No Prophylaxis Needed
[2016-11-13] MEDS: sitaGLIPtin 100 MG TABLET PO SCH (16:56)
[2016-11-13] MEDS: INSULIN GLARGINE 100 UNIT/ML SUBCUT SCH (21:00)
[2016-11-14] MEDS: SODIUM CHLORIDE 0.45% 1,000 ML IV SCH ×2 (05:02→23:39)
--- NOTE | 2016-11-14 06:23 | Cardiothoracic Progress Note ---
Cardiothoracic Subjective Interval history: Patient is pain-free and awaiting surgery on Thursday. Exam (Progress Note) - Constitutional Vitals: Period Temp Pulse Resp BP Sys/Wong Pulse Ox Last 24 Hr 96.1 F-97.7 F 66-82 16-20 103-146/46-80 95-100 Result/EKG - Labs CBC & BMP: 11/13/16 05:11 11/13/16 05:11 Labs: Laboratory Results - last 24 hr 11/13/16 11/13/16 11/13/16 05:11 05:11 08:09 WBC 7.7 RBC 5.60 H Hgb 15.4 Hct 46.1 MCV 82.3 L MCH 28 MCHC 33.4 RDW 13.0 Plt Count 208 MPV 11.0 Neut % (Auto) 60.6 Lymph % (Auto) 24.7 [place] % (Auto) 10.0 Eos % (Auto) 3.9 Baso % (Auto) 0.5 Neut # (Auto) 4.7 Lymph # (Auto) 1.9 [place] # (Auto) 0.8 Eos # (Auto) 0.3 Baso # (Auto) 0.0 Immature Gran % 0.3 Nucleated RBC % 0.0 Immature Gran # 0.02 Nucleated RBCs # 0.00 Sodium 145 Potassium 4.5 Chloride 107 Carbon Dioxide 28 Anion Gap 14.5 BUN 17 Creatinine 1.20 GFR Calculation 79 BUN/Creatinine Ratio 14.00 Glucose 103 POC Glucose 83 Calculated Osmolality 289.7 Calcium 8.2 L Total Bilirubin 0.50 AST 11 ALT 20 Alkaline Phosphatase 42 L Total Protein 6.4 Albumin 3.0 L Globulin 3.4 Albumin/Globulin Ratio 0.8 L 11/13/16 11/13/16 11/13/16 11:15 15:39 20:23 WBC RBC Hgb Hct MCV MCH MCHC RDW Plt Count MPV Neut % (Auto) Lymph % (Auto) [place] % (Auto) Eos % (Auto) Baso % (Auto) Neut # (Auto) Lymph # (Auto) [place] # (Auto) Eos # (Auto) Baso # (Auto) Immature Gran % Nucleated RBC % Immature Gran # Nucleated RBCs # Sodium Potassium Chloride Carbon Dioxide Anion Gap BUN Creatinine GFR Calculation BUN/Creatinine Ratio Glucose POC Glucose 226 H 147 H 181 H Calculated Osmolality Calcium Total Bilirubin AST ALT Alkaline Phosphatase Total Protein Albumin Globulin Albumin/Globulin Ratio Quality Measures - VTE Contraindication to Pharmacological VTE Prophylaxis: Already on Theraputic Agent , No Prophylaxis Needed
[2016-11-14] MEDS: INSULIN REGULAR 100 UNIT/ML SUBCUT SCH ×4 (07:36→21:02)
[2016-11-14] MEDS: CARVEDILOL 6.25 MG TABLET PO SCH ×2 (09:53→20:58)
[2016-11-14] MEDS: sitaGLIPtin 100 MG TABLET PO SCH (09:53)
[2016-11-14] MEDS: SIMVASTATIN 40 MG TABLET PO SCH (09:53)
[2016-11-14] MEDS: ASPIRIN EC 81 MG TABLET PO SCH (09:53)
[2016-11-14] MEDS: PANTOPRAZOLE 40 MG TABLET PO SCH (09:53)
[2016-11-14] MEDS: LOSARTAN 25 MG TABLET PO SCH (09:54)
[2016-11-14] MEDS: ISOSORBIDE MONONITRATE 30 MG TABLET PO SCH (09:54)
[2016-11-14] MEDS: ENOXAPARIN 100 MG/ML SYRINGE SUBCUT SCH ×2 (09:56→22:07)
--- NOTE | 2016-11-14 11:49 | Hospitalist Progress Note ---
Assessment and Plan (1) Chest pain Status: Acute Assessment and plan: Status post cardiac cath shows three-vessel disease plan for CABG on Thursday Current Visit: Yes (2) Coronary artery disease Status: Chronic Assessment and plan: Status post cardiac cath severe coronary disease 3 vessels with an EF of 30% Current Visit: Yes (3) Hypertension Status: Chronic Assessment and plan: Well controlled continue coreg, isosorbide, losartan Current Visit: Yes (4) Dyslipidemia Status: Chronic Assessment and plan: continue simvastatin Current Visit: Yes (5) Diabetes Status: Chronic Assessment and plan: cont Lantus, januvia, glipizide Current Visit: Yes Qualifiers: Diabetes mellitus type: type 2 Diabetes mellitus complication status: without complication 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 Andrade though. Exam - Constitutional Vitals: Period Temp Pulse Resp BP Sys/Wong Pulse Ox Last 24 Hr 96.1 F-97.7 F 66-82 16-20 103-146/46-80 94-100 Exam: Heart Rate-[RRR] Lungs-[CTAB] GI-[+bs soft, NT] Ext-[no edema] Results - Labs CBC & BMP: 11/13/16 05:11 11/13/16 05:11 Lab Results: I have reviewed the past 24 hour labs Quality Measures - VTE Contraindication to Pharmacological VTE Prophylaxis: Already on Theraputic Agent , No Prophylaxis Needed
--- NOTE | 2016-11-14 13:26 | Cardiology Progress Note ---
I, Guillermina Tsang RN, am scribing for, and in the presence of, Yonis Olosn MD 13:26. Assessment and Plan - Time spent with patient Time spent with patient: Less than 30 minutes (1) Coronary artery disease Status: Chronic Assessment and plan: Status post left heart cath on 11/12/16. Cath revealed multivessel coronary disease. Dr. Andrade has been consulted for coronary artery bypass grafting, and surgery is scheduled for Thursday morning. Anticoagulation and anginal therapies will continue while we await surgery. Current Visit: Yes (2) Diabetes Status: Chronic Assessment and plan: Defer primary management to hospitalist service. 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 Current Visit: Yes (4) Hypertension Status: Chronic Current Visit: Yes (5) Ischemic cardiomyopathy Status: Chronic Assessment and plan: Prior cardiac catheterization 11/12/16, LV ejection fraction estimated at 30%. We can consider repeating echocardiogram on an outpatient basis. Current Visit: Yes Cardiology - PN: Subj Interval history: He is housed on telemetry. Awake and alert sitting up in bed, with family present. Denies acute chest discomfort or dyspnea at this time. He does admit some occasional mid back discomfort which radiates through to the left chest area. Says these have been his previous symptoms prior to cath. Nitrates are part of medication regimen. Regular rate and rhythm per tank operator without occurrence of dysrhythmia or other. No labs available for review at this time Has occasional episodes of atypical mid back pain which is usually his anginal symptom. We will add Imdur 60 mg daily and continue his other medications anticipating surgery in several days. I have discussed in detail the particulars of this case and I have examined the patient and reviewed the patient's chart both current and old. I was directly involved in the patient's evaluation and management and I completely agree with Guillermina Tsang RN regarding this patient's evaluation and treatment plan. Exam (Progress Note) - Constitutional Vitals: Period Temp Pulse Resp BP Sys/Wong Pulse Ox Last 24 Hr 96.1 F-97.7 F 66-82 16-20 103-146/46-80 94-100 Exam: General appearance: no acute distress, over weight - Head Head exam: Present: normal inspection, normocephalic, atraumatic - Neck Neck exam: Present: normal inspection. Absent: lymphadenopathy, tenderness, thyromegaly - Respiratory Respiratory exam: Present: clear to auscultation bilaterally. Absent: accessory muscle use, chest wall tenderness, rales, rhonchi, stridor, wheezes - Cardiovascular Cardiovascular exam: Present: regular rate and rhythm. Absent: bradycardia, carotid bruit, gallop, rubs, systolic murmur, tachycardia - GI/Abdominal GI/Abdominal exam: Present: normal bowel sounds, soft. Absent: distended, firm , mass, tenderness - Extremities Exam Extremities exam: Present: normal inspection, normal capillary refill, other (2 + lower extremity pulses, right groin dressing dry and intact.). Absent: calf tenderness, edema - Neurological Exam Neurological exam: Present: alert, oriented X3 - Psychiatric Psychiatric exam: Present: normal affect, normal mood. Absent: agitated, anxious, depressed - Skin Skin exam: Present: normal color, warm, dry. Absent: cyanosis Result/EKG - Labs CBC & BMP: 11/13/16 05:11 11/13/16 05:11 Lab Results: I have reviewed the past 24 hour labs Labs: Laboratory Results - last 24 hr 11/13/16 11/13/16 11/13/16 11:15 15:39 20:23 POC Glucose 226 H 147 H 181 H 11/14/16 07:19 POC Glucose 104 - EKG EKG results: interpreted by me, no acute changes EKG shows: sinus rhythm Quality Measures - VTE Contraindication to Pharmacological VTE Prophylaxis: Already on Theraputic Agent , No Prophylaxis Needed I, Yonis Olson MD, personally performed the services described in this documentation, ascribed by Guillermina Tsang RN in my presence, and it is both accurate and complete 326 .
[2016-11-14] MEDS: SODIUM CHLORIDE 0.9% 1,000 ML IV SCH ×3 (18:28→23:40)
[2016-11-14] MEDS: INSULIN GLARGINE 100 UNIT/ML SUBCUT SCH (20:59)
[2016-11-15] MEDS: POLYETHYLENE GLYCOL POWDER 17 GM PACK PO SCH (09:37)
[2016-11-15] MEDS: CARVEDILOL 6.25 MG TABLET PO SCH ×2 (09:38→21:23)
[2016-11-15] MEDS: ASPIRIN EC 81 MG TABLET PO SCH (09:38)
[2016-11-15] MEDS: ISOSORBIDE MONONITRATE 60 MG TABLET PO SCH (09:38)
[2016-11-15] MEDS: PANTOPRAZOLE 40 MG TABLET PO SCH (09:38)
[2016-11-15] MEDS: sitaGLIPtin 100 MG TABLET PO SCH (09:38)
[2016-11-15] MEDS: SIMVASTATIN 40 MG TABLET PO SCH (09:39)
[2016-11-15] MEDS: INSULIN REGULAR 100 UNIT/ML SUBCUT SCH ×4 (09:39→21:56)
[2016-11-15] MEDS: LOSARTAN 25 MG TABLET PO SCH (09:39)
--- NOTE | 2016-11-15 09:39 | Cardiothoracic Progress Note ---
Cardiothoracic Subjective Interval history: Patient is ready for surgery on Thursday. He has been pain-free in the hospital. Exam (Progress Note) - Constitutional Vitals: Period Temp Pulse Resp BP Sys/Wong Pulse Ox Last 24 Hr 96.8 F-97.6 F 38-82 16-20 112-155/47-91 90-99 Result/EKG - Labs CBC & BMP: 11/13/16 05:11 11/13/16 05:11 Labs: Laboratory Results - last 24 hr 11/14/16 11/14/16 11/14/16 11:30 15:26 20:11 POC Glucose 141 H 202 H 168 H 11/15/16 07:18 POC Glucose 86 Quality Measures - VTE Contraindication to Pharmacological VTE Prophylaxis: Already on Theraputic Agent , No Prophylaxis Needed
[2016-11-15] MEDS: DOCUSATE SODIUM 100 MG CAPSULE PO SCH ×2 (09:52→21:23)
[2016-11-15] MEDS: ENOXAPARIN 100 MG/ML SYRINGE SUBCUT SCH ×2 (09:52→21:57)
--- NOTE | 2016-11-15 10:39 | Cardiology Progress Note ---
Assessment and Plan (1) Coronary artery disease Status: Chronic Assessment and plan: Status post left heart cath on 11/12/16. Cath revealed multivessel coronary disease. Dr. Andrade has been consulted for coronary artery bypass grafting, and surgery is scheduled for Thursday morning. Anticoagulation and anginal therapies will continue while we await surgery. 11/15: Patient is stable and continuing scheduled for bypass surgery 11/17 Current Visit: Yes (2) Diabetes Status: Chronic Assessment and plan: Defer primary management to hospitalist service. Current Visit: Yes Qualifiers: Diabetes mellitus type: type 2 Diabetes mellitus complication status: without complication Diabetes mellitus assisted insulin use: with assisted use Qualified Code(s): E11.9 - Type 2 diabetes mellitus without complications ; Z79.4 - [facility] (current) use of insulin (3) Dyslipidemia Status: Chronic Assessment and plan: Continue current lipid lowering agent. Current Visit: Yes (4) Hypertension Status: Chronic Assessment and plan: This is clinically stable. Continue current plan of care. Current Visit: Yes (5) Ischemic cardiomyopathy Status: Chronic Assessment and plan: Prior cardiac catheterization 11/12/16, LV ejection fraction estimated at 30%. We can consider repeating echocardiogram on an outpatient basis. Current Visit: Yes Cardiology - PN: Subj Interval history: Mr. Jones is a 66-year-old male with multivessel coronary disease for multivessel bypass on Thursday. He has been stable without significant symptoms and is overall comfortable without complaints. We will continue is currently anticipating surgery Thursday Exam (Progress Note) - Constitutional Vitals: Period Temp Pulse Resp BP Sys/Wong Pulse Ox Last 24 Hr 96.8 F-97.6 F 38-82 16-20 112-155/47-91 90-99 Exam: General appearance: no acute distress, over weight - Head Head exam: Present: normal inspection, normocephalic, atraumatic - Neck Neck exam: Present: normal inspection. Absent: lymphadenopathy, tenderness, thyromegaly - Respiratory Respiratory exam: Present: clear to auscultation bilaterally. Absent: accessory muscle use, chest wall tenderness, rales, rhonchi, stridor, wheezes - Cardiovascular Cardiovascular exam: Present: regular rate and rhythm. Absent: bradycardia, carotid bruit, gallop, rubs, systolic murmur, tachycardia - GI/Abdominal GI/Abdominal exam: Present: normal bowel sounds, soft. Absent: distended, firm , mass, tenderness - Extremities Exam Extremities exam: Present: normal inspection, normal capillary refill, other (2 + lower extremity pulses, right groin dressing dry and intact.). Absent: calf tenderness, edema - Neurological Exam Neurological exam: Present: alert, oriented X3 - Psychiatric Psychiatric exam: Present: normal affect, normal mood. Absent: agitated, anxious, depressed - Skin Skin exam: Present: normal color, warm, dry. Absent: cyanosis Result/EKG - Labs CBC & BMP: 11/13/16 05:11 11/13/16 05:11 Labs: Laboratory Results - last 24 hr 11/14/16 11/14/16 11/14/16 11:30 15:26 20:11 POC Glucose 141 H 202 H 168 H 11/15/16 07:18 POC Glucose 86 Quality Measures - VTE Contraindication to Pharmacological VTE Prophylaxis: Already on Theraputic Agent , No Prophylaxis Needed
--- NOTE | 2016-11-15 11:14 | Hospitalist Progress Note ---
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 Vazquez and anesthesia does not like metformin prior to CABG. Will hold off. Patient's blood sugars are excellent he is a little constipated he does have a laxatives on board but I will start giving him MiraLAX every day. Exam - Constitutional Vitals: Period Temp Pulse Resp BP Sys/Wong Pulse Ox Last 24 Hr 96.8 F-97.6 F 38-82 16-20 112-155/47-91 90-99 Exam: Heart Rate-[RRR] Lungs-[CTAB] GI-[+bs soft, NT] Ext-[no edema] Results - Labs CBC & BMP: 11/13/16 05:11 11/13/16 05:11 Lab Results: I have reviewed the past 24 hour labs Quality Measures - VTE Contraindication to Pharmacological VTE Prophylaxis: Already on Theraputic Agent , No Prophylaxis Needed
[2016-11-15] MEDS: SODIUM CHLORIDE 0.9% 1,000 ML IV SCH (14:08)
[2016-11-15] MEDS: SODIUM CHLORIDE 0.45% 1,000 ML IV SCH (21:22)
[2016-11-15] MEDS: INSULIN GLARGINE 100 UNIT/ML SUBCUT SCH (21:23)
[2016-11-16] MEDS: INSULIN REGULAR 100 UNIT/ML SUBCUT SCH ×4 (08:00→21:18)
--- NOTE | 2016-11-16 08:29 | Cardiothoracic Progress Note ---
Cardiothoracic Subjective Interval history: Patient is ready for surgery in the morning. Exam (Progress Note) - Constitutional Vitals: Period Temp Pulse Resp BP Sys/Wong Pulse Ox Last 24 Hr 97.2 F-98.1 F 49-84 16-20 108-149/61-86 87-99 Result/EKG - Labs CBC & BMP: 11/13/16 05:11 11/13/16 05:11 Labs: Laboratory Results - last 24 hr 11/15/16 11/15/16 11/15/16 11:58 15:40 19:50 POC Glucose 163 H 160 H 177 H Blood Type Antibody Screen Crossmatch 11/16/16 11/16/16 11/16/16 03:30 07:06 Unknown POC Glucose 66 L Blood Type B POSITIVE B POSITIVE Antibody Screen Negative Crossmatch See Detail Quality Measures - VTE Contraindication to Pharmacological VTE Prophylaxis: Already on Theraputic Agent , No Prophylaxis Needed
[2016-11-16] MEDS: POLYETHYLENE GLYCOL POWDER 17 GM PACK PO SCH (09:21)
[2016-11-16] MEDS: DOCUSATE SODIUM 100 MG CAPSULE PO SCH ×2 (09:21→21:16)
[2016-11-16] MEDS: ISOSORBIDE MONONITRATE 60 MG TABLET PO SCH (09:21)
[2016-11-16] MEDS: ASPIRIN EC 81 MG TABLET PO SCH (09:21)
[2016-11-16] MEDS: PANTOPRAZOLE 40 MG TABLET PO SCH (09:22)
[2016-11-16] MEDS: SIMVASTATIN 40 MG TABLET PO SCH (09:22)
[2016-11-16] MEDS: CARVEDILOL 6.25 MG TABLET PO SCH ×2 (09:22→21:16)
[2016-11-16] MEDS: sitaGLIPtin 100 MG TABLET PO SCH (09:22)
[2016-11-16] MEDS: LOSARTAN 25 MG TABLET PO SCH (09:23)
--- NOTE | 2016-11-16 09:43 | Cardiology Progress Note ---
Assessment and Plan (1) Coronary artery disease Status: Chronic Assessment and plan: Status post left heart cath on 11/12/16. Cath revealed multivessel coronary disease. Dr. Andrade has been consulted for coronary artery bypass grafting, and surgery is scheduled for Thursday morning. Anticoagulation and anginal therapies will continue while we await surgery. 11/15: Patient is stable and continuing scheduled for bypass surgery 11/17 11/16: Patient for surgery on 11/17. He is ready to go. Current Visit: Yes (2) Diabetes Status: Chronic Assessment and plan: Defer primary management to hospitalist service. 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 Current Visit: Yes (4) Hypertension Status: Chronic Assessment and plan: This is clinically stable. Continue current plan of care. Current Visit: Yes (5) Ischemic cardiomyopathy Status: Chronic Assessment and plan: Prior cardiac catheterization 11/12/16, LV ejection fraction estimated at 30%. We can consider repeating echocardiogram on an outpatient basis. Current Visit: Yes Cardiology - PN: Subj Interval history: Patient is stable and doing well and is ready for surgery in the morning. He has had no specific complaints and is overall ready. Exam (Progress Note) - Constitutional Vitals: Period Temp Pulse Resp BP Sys/Wong Pulse Ox Last 24 Hr 97.2 F-98.1 F 49-84 16-20 108-149/61-86 87-99 Exam: General appearance: no acute distress, over weight - Head Head exam: Present: normal inspection, normocephalic, atraumatic - Neck Neck exam: Present: normal inspection. Absent: lymphadenopathy, tenderness, thyromegaly - Respiratory Respiratory exam: Present: clear to auscultation bilaterally. Absent: accessory muscle use, chest wall tenderness, rales, rhonchi, stridor, wheezes - Cardiovascular Cardiovascular exam: Present: regular rate and rhythm. Absent: bradycardia, carotid bruit, gallop, rubs, systolic murmur, tachycardia - GI/Abdominal GI/Abdominal exam: Present: normal bowel sounds, soft. Absent: distended, firm , mass, tenderness - Extremities Exam Extremities exam: Present: normal inspection, normal capillary refill, other (2 + lower extremity pulses, right groin dressing dry and intact.). Absent: calf tenderness, edema - Neurological Exam Neurological exam: Present: alert, oriented X3 - Psychiatric Psychiatric exam: Present: normal affect, normal mood. Absent: agitated, anxious, depressed - Skin Skin exam: Present: normal color, warm, dry. Absent: cyanosis Result/EKG - Labs CBC & BMP: 11/13/16 05:11 11/13/16 05:11 Labs: Laboratory Results - last 24 hr 11/15/16 11/15/16 11/15/16 11:58 15:40 19:50 POC Glucose 163 H 160 H 177 H Blood Type Antibody Screen Crossmatch 11/16/16 11/16/16 11/16/16 03:30 07:06 Unknown POC Glucose 66 L Blood Type B POSITIVE B POSITIVE Antibody Screen Negative Crossmatch See Detail Quality Measures - VTE Contraindication to Pharmacological VTE Prophylaxis: Already on Theraputic Agent , No Prophylaxis Needed
[2016-11-16] MEDS: ENOXAPARIN 100 MG/ML SYRINGE SUBCUT SCH ×2 (10:57→22:06)
[2016-11-16] MEDS: CHLORHEXIDINE 0.12% ORAL RINSE 60 ML BOTTLE SWISH/SPIT SCH ×2 (10:58→21:17)
--- NOTE | 2016-11-16 12:27 | Hospitalist Progress Note ---
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 We decrease his insulin in half before surgery. Exam - Constitutional Vitals: Period Temp Pulse Resp BP Sys/Wong Pulse Ox Last 24 Hr 97.6 F-98.1 F 49-84 16-20 108-149/63-86 87-99 Exam: Heart Rate-[RRR] Lungs-[CTAB] GI-[+bs soft, NT] Ext-[no edema] Results - Labs CBC & BMP: 11/13/16 05:11 11/13/16 05:11 Lab Results: I have reviewed the past 24 hour labs Quality Measures - VTE Contraindication to Pharmacological VTE Prophylaxis: Already on Theraputic Agent , No Prophylaxis Needed
[2016-11-16] MEDS: SODIUM CHLORIDE 0.9% 1,000 ML IV SCH (14:05)
[2016-11-16] MEDS: CHLORHEXIDINE 4% SOLN 118 ML BOTTLE TOP SCH ×2 (17:37→21:18)
[2016-11-16] MEDS ORDERED: INSULIN GLARGINE 100 UNIT/ML SUBCUT SCH (21:00)
[2016-11-17 03:28] LABS: ABG Base Excess 1.1 MMOL/L (-2.5-2.5); ABG HCO3 25.3 MMOL/L (20-26); ABG Oxygen Saturation 95.6 % (95-100); ABG PCO2 38.9 MM HG (35-48); ABG PH 7.423 (7.35-7.45); ABG PO2 73.7 MM HG (80-95); ABG TCO2 21.9 MMOL/L (23-27); Allen Test Positive; Pt O2 Delivery Device Room Air
[2016-11-17 03:42] LABS: Basophils % 0.5 % (0.0-0.8); Eosinophils # 0.3 10*3/uL (0.0-0.87); Eosinophils % 4.5 % (0.00-10.9); Hematocrit 41.2 VOL% (42.0-52.0); Hemoglobin 13.6 GM/DL (14.0-18.0); Immature Granulocytes % 0.3 %; Immature Granulocytes Absolute 0.02 #; Lymphocytes # 1.8 10*3/uL (1.4-4.0); Lymphocytes % 26.9 % (21.2-54.2); Mean Corpuscular Hemoglobin 27 PG (27-34); Mean Corpuscular Volume 82.9 FL (87-102); Mean Platelet Volume 10.9 FL (9.6-12.0); Monocytes # 0.6 10*3/uL (0.11-0.8); Monocytes % 9.4 % (1.7-12.7); Neutrophils # 3.8 10*3/uL (1.4-7.4); Neutrophils % 58.4 % (38.7-73.9); Platelet Count 187 T/CUMM (130-400); Red Blood Count 4.97 MC/CUMM (3.8-5.5); Red Cell Distribution Width 13.1 % (9.3-17.3); White Blood Count 6.5 T/CUMM (4-12)
[2016-11-17 03:52] LABS: INR 1.1; PT Patient Result 11.4 SECS; Partial Thromboplastin Time 32.9 SECS (0-40)
[2016-11-17 04:15] LABS: Bilirubin,Total 0.4 MG/DL (0.2-1.0); Calcium 8.2 MG/DL (8.5-10.1); Osmolality,Calculated 297.7 MOS/KG (273-304); Potassium 4.4 MMOL/L (3.5-5.1); Total Protein 5.8 G/DL (6.4-8.3)
[2016-11-17] MEDS: CHLORHEXIDINE 4% SOLN 118 ML BOTTLE TOP SCH ×2 (04:15→12:54)
[2016-11-17] MEDS ORDERED: PAPAVERINE 60 MG/2 ML VIAL ONE (04:35)
[2016-11-17] MEDS ORDERED: VANCOMYCIN 1,000 MG VIAL ONE (04:36)
[2016-11-17] MEDS: CARVEDILOL 6.25 MG TABLET PO SCH ×2 (05:49→13:07)
[2016-11-17] MEDS: ISOSORBIDE MONONITRATE 60 MG TABLET PO SCH ×2 (05:50→13:07)
[2016-11-17] MEDS: LOSARTAN 25 MG TABLET PO SCH ×2 (05:51→13:07)
[2016-11-17] MEDS ORDERED: CEFUROXIME INJ 1,500 MG in SODIUM CHLORIDE 0.9% 100 ML IV ONE (06:00)
[2016-11-17] MEDS ORDERED: LORazepam 1 MG TABLET PO ONE (06:00)
[2016-11-17] MEDS ORDERED: FAMOTIDINE 20 MG TABLET PO ONE (06:00)
[2016-11-17] MEDS ORDERED: VECURONIUM 10 MG VIAL IV ONE (06:45)
[2016-11-17] MEDS ORDERED: CALCIUM CHLORIDE 1,000 MG/10 ML SYRINGE IV ONE ×2 (06:45→08:56)
[2016-11-17] MEDS ORDERED: ESMOLOL 100 MG/10 ML VIAL IV ONE (06:45)
[2016-11-17] MEDS ORDERED: PHENYLEPHRINE 20 MG/250 ML PREMIX IV ONE (06:45)
[2016-11-17] MEDS ORDERED: ETOMIDATE 20 MG/10 ML VIAL IV ONE (06:45)
[2016-11-17] MEDS ORDERED: LIDOCAINE 2% 5 ML VIAL ONE (06:45)
[2016-11-17] MEDS ORDERED: AMINOCAPROIC ACID 5,000 MG/20 ML VIAL IV ONE (06:45)
[2016-11-17] MEDS ORDERED: NITROGLYCERIN 50 MG/250 ML BOTTLE IV ONE (06:45)
[2016-11-17] MEDS ORDERED: HEPARIN 1,000 UNIT/1 ML VIAL ONE (06:45)
[2016-11-17 07:52] LABS: ABG Base Excess 0.4 MMOL/L (-2.5-2.5); ABG HCO3 24.8 MMOL/L (20-26); ABG Oxygen Saturation 99.5 % (95-100); ABG PCO2 35.5 MM HG (35-48); ABG PH 7.439 (7.35-7.45); ABG TCO2 20.9 MMOL/L (23-27); Glucose Heart Surgery 172 MG/DL (74-106); Hematocrit Heart Surgery 40.5 PERCENT (42-52); Hemoglobin Heart Surgery 13.2 G/DL (14.0-18.0); Ionized Calcium Arterial 1.13 MMOL/L (1.21-1.46); PCO2 Patient Temp Arterial 35.5 MMHG; PH Patient Temp Arterial 7.439; Patient Temperature 37 CELCIUS; Sodium Heart/CVR 137 MMOL/L (135-145)
[2016-11-17 07:58] LABS: Apearance,Urine CLEAR (Clear); Bilirubin,Urine Negative (Negative); Blood, Urine Small mg/dL (Negative); Glucose,Urine (UA) 50 mg/dL (Negative); Ketones,Urine Negative (Negative); Nitrite,Urine Negative (Negative); Protein,Urine Negative; RBC,Urine 1 /HPF (0-4); Squamous Epithelial Cell,Urine Occasional /HPF (0-10); Urine Color Straw (Yellow); Urine Specific Gravity 1.009 (1.001-1.035); Urine Urobilinogen < 2.0 EU/DL (0.2-1.0); WBC,Urine <1 /HPF (0-6)
[2016-11-17] MEDS ORDERED: NITROPRUSSIDE 50 MG/2 ML VIAL ONE (08:55)
[2016-11-17] MEDS ORDERED: PHENYLEPHRINE DRIP 40 MG/250 ML PREMIX IV ONE (08:56)
[2016-11-17] MEDS ORDERED: POTASSIUM CHLORIDE RIDER 100 ML IV ONE (08:56)
[2016-11-17] MEDS ORDERED: SODIUM BICARBONATE 50 MEQ/50 ML SYRINGE IV ONE ×2 (08:57→10:35)
[2016-11-17] MEDS ORDERED: EPINEPHrine 1 MG/10 ML SYRINGE ONE (08:57)
[2016-11-17] MEDS ORDERED: ALBUMIN 5% 12.5 GM/250 ML VIAL IV ONE (08:58)
[2016-11-17 09:33] LABS: Hematocrit Heart Surgery 28.6 PERCENT (42-52); Hemoglobin Heart Surgery 9.2 G/DL (14.0-18.0); PH Patient Temp Venous 7.421; PO2 Patient Temp Venous 38.3 MM HG; VBG Base Excess 0.5 MEQ/L (0-4); VBG HCO3 24.7 MEQ/L (24-28); VBG Oxygen Saturation 83.3 %; VBG PH 7.377; VBG PO2 47.1 MMHG (17-40)
[2016-11-17] MEDS ORDERED: INSULIN REGULAR DRIP 100 ML IV ONE (09:34)
[2016-11-17] MEDS ORDERED: DOBUTamine 500 MG/250 ML PREMIX IV ONE (09:46)
[2016-11-17 10:08] LABS: Hematocrit Heart Surgery 29.6 PERCENT (42-52); Hemoglobin Heart Surgery 9.6 G/DL (14.0-18.0); PH Patient Temp Venous 7.455; PO2 Patient Temp Venous 32.3 MM HG; Potassium Heart/CVR 4.6 MMOL/L (3.5-5.1); VBG Oxygen Saturation 76.8 %; VBG PCO2 38.6 MMHG (41-51); VBG PH 7.425; VBG PO2 37.1 MMHG (17-40)
[2016-11-17] MEDS ORDERED: HEPARIN 10,000 UNIT/10 ML VIAL ONE (10:35)
[2016-11-17] MEDS ORDERED: MAGNESIUM SULFATE 1 GM/2 ML VIAL ONE (10:35)
[2016-11-17] MEDS ORDERED: methylPREDNISolone SOD SUC 1,000 MG/8 ML VIAL ONE (10:35)
[2016-11-17] MEDS ORDERED: PROTAMINE SULFATE 250 MG/25 ML VIAL IV ONE (10:35)
[2016-11-17] MEDS ORDERED: ALBUMIN 25% 25 GM/100 ML VIAL IV ONE (10:35)
[2016-11-17] MEDS ORDERED: DEXTROSE 5% KCL 20 MEQ 20 MEQ/1,000 ML BAG IV ONE (10:35)
[2016-11-17] MEDS ORDERED: FUROSEMIDE 20 MG/2 ML VIAL ONE (10:36)
[2016-11-17] MEDS ORDERED: MANNITOL 12.5 GM/50 ML VIAL IV ONE (10:36)
[2016-11-17] MEDS ORDERED: PROTAMINE SULFATE 50 MG/5 ML VIAL IV ONE ×3 (10:36→11:44)
[2016-11-17] MEDS ORDERED: INSULIN REGULAR 100 UNIT/ML ONE (10:39)
[2016-11-17 10:40] LABS: ABG Base Excess -0.3 MMOL/L (-2.5-2.5); ABG HCO3 24.2 MMOL/L (20-26); ABG Oxygen Saturation 98.8 % (95-100); ABG PCO2 38.1 MM HG (35-48); ABG PH 7.408 (7.35-7.45); ABG TCO2 20.5 MMOL/L (23-27); Glucose Heart Surgery 206 MG/DL (74-106); Hematocrit Heart Surgery 44.7 PERCENT (42-52); Hemoglobin Heart Surgery 14.6 G/DL (14.0-18.0); Ionized Calcium Arterial 1.25 MMOL/L (1.21-1.46); PCO2 Patient Temp Arterial 38.1 MMHG; PH Patient Temp Arterial 7.408; Patient Temperature 37 CELCIUS; Potassium Heart/CVR 3.8 MMOL/L (3.5-5.1); Sodium Heart/CVR 135 MMOL/L (135-145)
[2016-11-17] MEDS ORDERED: MORPHINE 10 MG/1 ML VIAL IV PRN (11:30)
[2016-11-17] MEDS ORDERED: VECURONIUM 10 MG VIAL IV PRN ×2 (11:30)
[2016-11-17] MEDS ORDERED: MAGNESIUM SULF RIDER 4 GM in PREMIX 1 EACH IV PRN (11:30)
[2016-11-17] MEDS ORDERED: CALCIUM CHLORIDE 1,000 MG/10 ML SYRINGE IV PRN (11:30)
[2016-11-17] MEDS ORDERED: MAGNESIUM SULF RIDER 2 GM in PREMIX 1 EACH IV PRN (11:30)
[2016-11-17] MEDS ORDERED: MORPHINE 2 MG/1 ML SYRINGE IV PRN (11:30)
[2016-11-17] MEDS ORDERED: PHENYLEPHRINE DRIP 40 MG/250 ML PREMIX IV PRN (11:30)
[2016-11-17] MEDS ORDERED: NITROPRUSSIDE 100 MG in DEXTROSE 5% 250 ML IV PRN (11:30)
[2016-11-17] MEDS ORDERED: INSULIN REGULAR 100 UNIT/ML IV ONE (11:30)
[2016-11-17] MEDS ORDERED: LACTATED RINGERS 250 ML IV PRN (11:30)
[2016-11-17] MEDS ORDERED: ONDANSETRON 4 MG/2 ML VIAL IV PRN (11:30)
[2016-11-17] MEDS ORDERED: ACETAMINOPHEN 650 MG SUPP RECTAL PRN (11:30)
[2016-11-17] MEDS ORDERED: INSULIN REGULAR DRIP 100 ML IV SCH (11:30)
[2016-11-17] MEDS ORDERED: POTASSIUM CHLORIDE RIDER 10 MEQ in PREMIX 1 EACH IV PRN (11:30)
[2016-11-17] MEDS ORDERED: SODIUM CHLORIDE 0.45% 1,000 ML IV SCH ×2 (11:30)
[2016-11-17] MEDS ORDERED: DEXTROSE 50% 25 GM/50 ML VIAL IV PRN ×2 (11:30)
--- NOTE | 2016-11-17 11:37 | Operative Note ---
Date of procedure: 11/17/16 Pre-op diagnosis: coronary artery disease Post-op diagnosis: same Procedure: Procedure: Coronary artery bypass grafting 2 with the left internal mammary graft to the anterior descending coronary artery and a saphenous vein graft to the obtuse marginal coronary artery. Findings: Patient is a 66-year-old man with significant coronary artery disease with a total occlusion of a stented circumflex coronary artery and high-grade occlusion of the anterior descending coronary artery. The right coronary artery was chronically occluded and there was significant scarring in that distribution and the vessel was not deemed bypassable. Circumflex marginal coronary artery however was a large vessel beyond the area of occlusion and free of disease site of anastomosis. The LAD likewise was a large vessel and accepted the internal mammary artery graft. Patient tolerated the procedure well and was returned recovery in satisfactory condition. Procedure: Patient brought to the operating room placed on the operating table in supine position. After satisfactory induction of general anesthesia the chest abdomen and legs were prepped and draped in sterile fashion. Greater saphenous vein was harvested from the right lower leg and prepared as an arterial graft. Incision leg was closed with running subcutaneous Monocryl in running subcuticular Monocryl. Standard sternotomy incision was made and the sternum was divided and the heart suspended in a pericardial cradle. The left internal mammary artery was dissected free from its position in the anterior chest wall and prepared as an arterial graft. The patient was prepared for cardiopulmonary bypass with systemic heparinization cannulation of the ascending aorta and right atrium. Cardiopulmonary bypass was begun and the aorta was crossclamped and the heart arrested with cardioplegia solution injected into the aortic root. Heart was protected during the period of crossclamping with topical saline slush. Distal anastomoses were constructed as noted above and then the aorta was unclamped reestablished and cardiac action. Proximal anastomosis was constructed between the ascending aorta and the inflow end of the saphenous vein graft. Patient was then weaned from cardiopulmonary bypass without difficulty and decannulation carried out with the defects in the ascending aorta and right atrium closed with 3-0 Prolene. Heparin effect was reversed with protamine and the operative field was inspected for hemostasis and when this was considered adequate the incision was closed with interrupted stainless steel wire and the sternum and running 0 Monopril and the presternal fascia and 3-0 subcuticular Monocryl. 2 chest tubes were left in the anterior mediastinum and brought out through separate stab incisions. Sterile dressings were applied and the patient was returned recovery in satisfactory condition. Anesthesia: ZAKI Surgeon / Physician: Asaf Andrade Estimated blood loss: other Condition: stable (unable to determine because of cardiopulmonary bypass) Disposition: ICU Results - Labs CBC & BMP: 11/17/16 10:33 11/17/16 03:08 Discharge Plan - Discharge Medications No Action Simvastatin [Zocor] 40 mg PO DAILY Metoprolol Succinate Xl [Toprol Xl] 50 mg PO DAILY Lisinopril [Prinivil] 20 mg PO DAILY Glipizide [Glipizide Xl] 10 mg PO DAILY Aspirin [Ecotrin] 81 mg PO DAILY Isosorbide Mononitrate [Isosorbide Mononitrate ER] 30 mg PO DAILY Saxagliptin HCl [Onglyza] 2.5 mg PO DAILY - Follow Up or Referral - Forms/Instructions
[2016-11-17] MEDS ORDERED: SEVOFLURANE 1 UNIT/15 MINUTE INH ONE (11:52)
[2016-11-17 11:53] LABS: ABG HCO3 25.3 MMOL/L (20-26); ABG Oxygen Saturation 99.9 % (95-100); ABG PCO2 35.9 MM HG (35-48); ABG PH 7.445 (7.35-7.45); ABG TCO2 21.8 MMOL/L (23-27); Glucose Heart Surgery 166 MG/DL (74-106); Potassium Heart/CVR 4.5 MMOL/L (3.5-5.1)
[2016-11-17] MEDS ORDERED: SUFentanil 250 MCG/5 ML AMP ONE (11:53)
[2016-11-17] MEDS ORDERED: LACTATED RINGERS 2,000 ML IV ONE (11:53)
[2016-11-17] MEDS ORDERED: SODIUM CHLORIDE 0.9% 250 ML IV ONE (11:53)
[2016-11-17] MEDS ORDERED: MIDAZOLAM 10 MG/2 ML VIAL ONE (11:53)
[2016-11-17] MEDS ORDERED: ePHEDrine 50 MG/ML AMP ONE (11:53)
[2016-11-17] MEDS ORDERED: SODIUM CHLORIDE 0.9% 2,000 ML IV ONE (11:53)
[2016-11-17 11:57] LABS: Basophils % 0.2 % (0.0-0.8); Eosinophils # 0.2 10*3/uL (0.0-0.87); Eosinophils % 1.5 % (0.00-10.9); Hematocrit 34.7 VOL% (42.0-52.0); Hemoglobin 11.7 GM/DL (14.0-18.0); Immature Granulocytes % 0.7 %; Lymphocytes # 0.9 10*3/uL (1.4-4.0); Lymphocytes % 6.8 % (21.2-54.2); Mean Corpuscular HGB Conc 33.7 GM/DL (32-36); Mean Corpuscular Hemoglobin 28 PG (27-34); Mean Corpuscular Volume 81.8 FL (87-102); Mean Platelet Volume 10.8 FL (9.6-12.0); Monocytes # 0.6 10*3/uL (0.11-0.8); Monocytes % 4.5 % (1.7-12.7); Neutrophils % 86.3 % (38.7-73.9); Platelet Count 166 T/CUMM (130-400); Red Blood Count 4.24 MC/CUMM (3.8-5.5); Red Cell Distribution Width 13.2 % (9.3-17.3); White Blood Count 13.9 T/CUMM (4-12)
[2016-11-17] MEDS ORDERED: NITROGLYCERIN DRIP 50 MG/250 ML BOTTLE IV ONE (12:04)
[2016-11-17] MEDS ORDERED: NITROGLYCERIN DRIP 50 MG/250 ML BOTTLE IV SCH (12:04)
[2016-11-17 12:09] LABS: INR 1.2; PT Patient Result 12.8 SECS; Partial Thromboplastin Time 39.7 SECS (0-40)
--- NOTE | 2016-11-17 12:41 | Cardiology Progress Note ---
Cardiology - PN: Subj Interval history: Cardiology note Just returned from OR. Status post LOPEZ graft to LAD and vein graft to the OM branch. Mid RCA is occluded Preop EF 30%. Telemetry shows sinus rhythm in the mid 80s O2 sat 100 on 60% FiO2 Blood pressure 160/80 on nitrite and IV NTG Good urine output 140 cc chest tube output today Quiet precordium Potassium 4.5 Hemoglobin 12.0 hematocrit 37.0 Plan IV NTG and nitrite as needed for blood pressure Follow chest tube output Wean vent as tolerated Follow CPK troponin and routine labs Exam (Progress Note) - Constitutional Vitals: Period Temp Pulse Resp BP Sys/Wong Pulse Ox Last 24 Hr 97.6 F-98.4 F 73-88 18-20 143-159/69-83 94-97 Result/EKG - Labs CBC & BMP: 11/17/16 11:45 11/17/16 03:08 Labs: Laboratory Results - last 24 hr 11/16/16 11/16/16 11/16/16 03:30 12:15 13:49 WBC RBC Hgb Hct MCV MCH MCHC RDW Plt Count MPV Neut % (Auto) Lymph % (Auto) Newton % (Auto) Eos % (Auto) Baso % (Auto) Neut # (Auto) Lymph # (Auto) Newton # (Auto) Eos # (Auto) Baso # (Auto) Immature Gran % Nucleated RBC % Immature Gran # Nucleated RBCs # INR PT Patient/Control Mix Circ Anticoag PTT Patient Temperature ABG pH ABG pH at Pt Temp ABG pCO2 ABG pCO2 at Pt Temp ABG pO2 ABG pO2 at Pt Temp ABG HCO3 ABG Total CO2 ABG O2 Saturation ABG Base Excess ABG Sodium VBG pH VBG pCO2 VBG pO2 VBG HCO3 VBG Total CO2 VBG O2 Saturation VBG Base Excess Hemoglobin Hematocrit Ionized Calcium FiO2 Sodium Potassium Chloride Carbon Dioxide Anion Gap BUN Creatinine GFR Calculation BUN/Creatinine Ratio Glucose POC Glucose 193 H 208 H Calculated Osmolality Calcium Venous Ioniz Calcium Total Bilirubin AST ALT Alkaline Phosphatase Total Protein Albumin Globulin Albumin/Globulin Ratio Urine Color Urine Appearance Urine pH Ur Specific Crawford Urine Protein Urine Glucose (UA) Urine Ketones Urine Blood Urine Nitrate Urine Bilirubin Urine Urobilinogen Urine Leukocytes Urine RBC Urine WBC Ur Squamous Epith Cells Ur Culture Indicated? Blood Type B POSITIVE Antibody Screen Negative Crossmatch See Detail 11/16/16 11/16/16 11/17/16 15:13 19:06 03:08 WBC 6.5 RBC 4.97 Hgb 13.6 L Hct 41.2 L MCV 82.9 L MCH 27 MCHC 33.0 RDW 13.1 Plt Count 187 MPV 10.9 Neut % (Auto) 58.4 Lymph % (Auto) 26.9 Newton % (Auto) 9.4 Eos % (Auto) 4.5 Baso % (Auto) 0.5 Neut # (Auto) 3.8 Lymph # (Auto) 1.8 Newton # (Auto) 0.6 Eos # (Auto) 0.3 Baso # (Auto) 0.0 Immature Gran % 0.3 Nucleated RBC % 0.0 Immature Gran # 0.02 Nucleated RBCs # 0.00 INR PT Patient/Control Mix Circ Anticoag PTT Patient Temperature ABG pH ABG pH at Pt Temp ABG pCO2 ABG pCO2 at Pt Temp ABG pO2 ABG pO2 at Pt Temp ABG HCO3 ABG Total CO2 ABG O2 Saturation ABG Base Excess ABG Sodium VBG pH VBG pCO2 VBG pO2 VBG HCO3 VBG Total CO2 VBG O2 Saturation VBG Base Excess Hemoglobin Hematocrit Ionized Calcium FiO2 Sodium Potassium Chloride Carbon Dioxide Anion Gap BUN Creatinine GFR Calculation BUN/Creatinine Ratio Glucose POC Glucose 175 H 138 H Calculated Osmolality Calcium Venous Ioniz Calcium Total Bilirubin AST ALT Alkaline Phosphatase Total Protein Albumin Globulin Albumin/Globulin Ratio Urine Color Urine Appearance Urine pH Ur Specific Crawford Urine Protein Urine Glucose (UA) Urine Ketones Urine Blood Urine Nitrate Urine Bilirubin Urine Urobilinogen Urine Leukocytes Urine RBC Urine WBC Ur Squamous Epith Cells Ur Culture Indicated? Blood Type Antibody Screen Crossmatch 11/17/16 11/17/16 11/17/16 03:08 03:08 03:20 WBC RBC Hgb Hct MCV MCH MCHC RDW Plt Count MPV Neut % (Auto) Lymph % (Auto) Newton % (Auto) Eos % (Auto) Baso % (Auto) Neut # (Auto) Lymph # (Auto) Newton # (Auto) Eos # (Auto) Baso # (Auto) Immature Gran % Nucleated RBC % Immature Gran # Nucleated RBCs # INR 1.1 PT Patient/Control Mix 11.4 Circ Anticoag PTT 32.9 Patient Temperature ABG pH 7.423 ABG pH at Pt Temp ABG pCO2 38.9 ABG pCO2 at Pt Temp ABG pO2 73.7 L ABG pO2 at Pt Temp ABG HCO3 25.3 ABG Total CO2 21.9 L ABG O2 Saturation 95.6 ABG Base Excess 1.1 ABG Sodium VBG pH VBG pCO2 VBG pO2 VBG HCO3 VBG Total CO2 VBG O2 Saturation VBG Base Excess Hemoglobin Hematocrit Ionized Calcium FiO2 21.00 Sodium 145 Potassium 4.4 Chloride 107 Carbon Dioxide 24 Anion Gap 18.4 H BUN 16 Creatinine 1.30 GFR Calculation 72 BUN/Creatinine Ratio 12.00 Glucose 252 H POC Glucose Calculated Osmolality 297.7 Calcium 8.2 L Venous Ioniz Calcium Total Bilirubin 0.40 AST 62 H ALT 102 H Alkaline Phosphatase 42 L Total Protein 5.8 L Albumin 3.0 L Globulin 2.8 Albumin/Globulin Ratio 1.0 L Urine Color Urine Appearance Urine pH Ur Specific Crawford Urine Protein Urine Glucose (UA) Urine Ketones Urine Blood Urine Nitrate Urine Bilirubin Urine Urobilinogen Urine Leukocytes Urine RBC Urine WBC Ur Squamous Epith Cells Ur Culture Indicated? Blood Type Antibody Screen Crossmatch 11/17/16 11/17/16 11/17/16 03:49 07:05 07:49 WBC RBC Hgb Hct MCV MCH MCHC RDW Plt Count 95 L D MPV Neut % (Auto) Lymph % (Auto) Newton % (Auto) Eos % (Auto) Baso % (Auto) Neut # (Auto) Lymph # (Auto) Newton # (Auto) Eos # (Auto) Baso # (Auto) Immature Gran % Nucleated RBC % Immature Gran # Nucleated RBCs # INR PT Patient/Control Mix Circ Anticoag PTT Patient Temperature ABG pH ABG pH at Pt Temp ABG pCO2 ABG pCO2 at Pt Temp ABG pO2 ABG pO2 at Pt Temp ABG HCO3 ABG Total CO2 ABG O2 Saturation ABG Base Excess ABG Sodium VBG pH VBG pCO2 VBG pO2 VBG HCO3 VBG Total CO2 VBG O2 Saturation VBG Base Excess Hemoglobin Hematocrit Ionized Calcium FiO2 Sodium Potassium Chloride Carbon Dioxide Anion Gap BUN Creatinine GFR Calculation BUN/Creatinine Ratio Glucose POC Glucose 238 H Calculated Osmolality Calcium Venous Ioniz Calcium Total Bilirubin AST ALT Alkaline Phosphatase Total Protein Albumin Globulin Albumin/Globulin Ratio Urine Color Straw Urine Appearance Clear Urine pH 7.0 Ur Specific Crawford 1.009 Urine Protein Negative Urine Glucose (UA) 50 Urine Ketones Negative Urine Blood Small Urine Nitrate Negative Urine Bilirubin Negative Urine Urobilinogen < 2.0 H Urine Leukocytes Negative Urine RBC 1 Urine WBC <1 Ur Squamous Epith Cells Occasional Ur Culture Indicated? Not indicated Blood Type Antibody Screen Crossmatch 11/17/16 11/17/16 11/17/16 07:49 09:30 10:05 WBC RBC Hgb Hct MCV MCH MCHC RDW Plt Count MPV Neut % (Auto) Lymph % (Auto) Newton % (Auto) Eos % (Auto) Baso % (Auto) Neut # (Auto) Lymph # (Auto) Newton # (Auto) Eos # (Auto) Baso # (Auto) Immature Gran % Nucleated RBC % Immature Gran # Nucleated RBCs # INR PT Patient/Control Mix Circ Anticoag PTT Patient Temperature 37 34 35 ABG pH 7.439 ABG pH at Pt Temp 7.439 7.421 7.455 ABG pCO2 35.5 ABG pCO2 at Pt Temp 35.5 38.0 35.0 ABG pO2 170.0 H ABG pO2 at Pt Temp 170.0 38.3 32.3 ABG HCO3 24.8 ABG Total CO2 20.9 L ABG O2 Saturation 99.5 ABG Base Excess 0.4 ABG Sodium 137 131 L 133 L VBG pH 7.377 7.425 VBG pCO2 44.0 38.6 L VBG pO2 47.1 H 37.1 VBG HCO3 24.7 25.0 VBG Total CO2 23.9 23.2 VBG O2 Saturation 83.3 76.8 VBG Base Excess 0.5 1.0 Hemoglobin 13.2 L 9.2 L D 9.6 L Hematocrit 40.5 L 28.6 L 29.6 L Ionized Calcium 1.13 L FiO2 80.00 80.00 Sodium Potassium 4.0 5.0 4.6 Chloride Carbon Dioxide Anion Gap BUN Creatinine GFR Calculation BUN/Creatinine Ratio Glucose 172 H 340 H 276 H POC Glucose Calculated Osmolality Calcium Venous Ioniz Calcium 0.94 L 1.02 L Total Bilirubin AST ALT Alkaline Phosphatase Total Protein Albumin Globulin Albumin/Globulin Ratio Urine Color Urine Appearance Urine pH Ur Specific Crawford Urine Protein Urine Glucose (UA) Urine Ketones Urine Blood Urine Nitrate Urine Bilirubin Urine Urobilinogen Urine Leukocytes Urine RBC Urine WBC Ur Squamous Epith Cells Ur Culture Indicated? Blood Type Antibody Screen Crossmatch 11/17/16 11/17/16 11/17/16 10:33 10:33 11:45 WBC 13.9 H D RBC 4.24 Hgb 11.7 L Hct 34.7 L MCV 81.8 L MCH 28 MCHC 33.7 RDW 13.2 Plt Count 84 L 166 D MPV 10.8 Neut % (Auto) 86.3 H Lymph % (Auto) 6.8 L Newton % (Auto) 4.5 Eos % (Auto) 1.5 Baso % (Auto) 0.2 Neut # (Auto) 12.0 H Lymph # (Auto) 0.9 L Newton # (Auto) 0.6 Eos # (Auto) 0.2 Baso # (Auto) 0.0 Immature Gran % 0.7 Nucleated RBC % 0.0 Immature Gran # 0.10 Nucleated RBCs # 0.00 INR PT Patient/Control Mix Circ Anticoag PTT Patient Temperature 37 ABG pH 7.408 ABG pH at Pt Temp 7.408 ABG pCO2 38.1 ABG pCO2 at Pt Temp 38.1 ABG pO2 120.0 H ABG pO2 at Pt Temp 120.0 ABG HCO3 24.2 ABG Total CO2 20.5 L ABG O2 Saturation 98.8 ABG Base Excess -0.3 ABG Sodium 135 VBG pH VBG pCO2 VBG pO2 VBG HCO3 VBG Total CO2 VBG O2 Saturation VBG Base Excess Hemoglobin 14.6 D Hematocrit 44.7 Ionized Calcium 1.25 FiO2 Sodium Potassium 3.8 Chloride Carbon Dioxide Anion Gap BUN Creatinine GFR Calculation BUN/Creatinine Ratio Glucose 206 H POC Glucose Calculated Osmolality Calcium Venous Ioniz Calcium Total Bilirubin AST ALT Alkaline Phosphatase Total Protein Albumin Globulin Albumin/Globulin Ratio Urine Color Urine Appearance Urine pH Ur Specific Crawford Urine Protein Urine Glucose (UA) Urine Ketones Urine Blood Urine Nitrate Urine Bilirubin Urine Urobilinogen Urine Leukocytes Urine RBC Urine WBC Ur Squamous Epith Cells Ur Culture Indicated? Blood Type Antibody Screen Crossmatch 11/17/16 11/17/16 11:45 11:45 WBC RBC Hgb Hct MCV MCH MCHC RDW Plt Count MPV Neut % (Auto) Lymph % (Auto) Newton % (Auto) Eos % (Auto) Baso % (Auto) Neut # (Auto) Lymph # (Auto) Newton # (Auto) Eos # (Auto) Baso # (Auto) Immature Gran % Nucleated RBC % Immature Gran # Nucleated RBCs # INR 1.2 PT Patient/Control Mix 12.8 Circ Anticoag PTT 39.7 D Patient Temperature ABG pH 7.445 ABG pH at Pt Temp ABG pCO2 35.9 ABG pCO2 at Pt Temp ABG pO2 207.0 H ABG pO2 at Pt Temp ABG HCO3 25.3 ABG Total CO2 21.8 L ABG O2 Saturation 99.9 ABG Base Excess 1.0 ABG Sodium VBG pH VBG pCO2 VBG pO2 VBG HCO3 VBG Total CO2 VBG O2 Saturation VBG Base Excess Hemoglobin 12.0 L D Hematocrit 37.0 L Ionized Calcium FiO2 Sodium Potassium 4.5 Chloride Carbon Dioxide Anion Gap BUN Creatinine GFR Calculation BUN/Creatinine Ratio Glucose 166 H POC Glucose Calculated Osmolality Calcium Venous Ioniz Calcium Total Bilirubin AST ALT Alkaline Phosphatase Total Protein Albumin Globulin Albumin/Globulin Ratio Urine Color Urine Appearance Urine pH Ur Specific Crawford Urine Protein Urine Glucose (UA) Urine Ketones Urine Blood Urine Nitrate Urine Bilirubin Urine Urobilinogen Urine Leukocytes Urine RBC Urine WBC Ur Squamous Epith Cells Ur Culture Indicated? Blood Type Antibody Screen Crossmatch Quality Measures - VTE Contraindication to Pharmacological VTE Prophylaxis: Already on Theraputic Agent , No Prophylaxis Needed
[2016-11-17 12:44] LABS: CKMB % 7.3 %
[2016-11-17 12:47] LABS: Albumin 3.1 G/DL (3.4-5.0); Bilirubin,Total 0.9 MG/DL (0.2-1.0); Calcium 8.9 MG/DL (8.5-10.1); Magnesium 2.5 MG/DL (1.8-2.4); Potassium 4.8 MMOL/L (3.5-5.1); Total Protein 5.3 G/DL (6.4-8.3)
[2016-11-17 12:48] LABS: Troponin I Only 2.9 NG/ML (0.00-0.045)
[2016-11-17] MEDS: ALBUMIN 5% 12.5 GM in PREMIX 1 EACH IV PRN ×3 (12:48→17:16)
[2016-11-17] MEDS: KETOROLAC 30 MG/1 ML VIAL IV SCH ×2 (12:58→17:39)
[2016-11-17] MEDS: ASPIRIN EC 81 MG TABLET PO SCH (13:06)
[2016-11-17] MEDS: INSULIN REGULAR 100 UNIT/ML SUBCUT SCH (13:06)
[2016-11-17] MEDS: DOCUSATE SODIUM 100 MG CAPSULE PO SCH (13:06)
[2016-11-17] MEDS: sitaGLIPtin 100 MG TABLET PO SCH (13:07)
[2016-11-17] MEDS: POLYETHYLENE GLYCOL POWDER 17 GM PACK PO SCH (13:07)
[2016-11-17] MEDS: CHLORHEXIDINE 0.12% ORAL RINSE 60 ML BOTTLE SWISH/SPIT SCH (13:07)
[2016-11-17] MEDS: SIMVASTATIN 40 MG TABLET PO SCH (13:08)
[2016-11-17] MEDS: PANTOPRAZOLE 40 MG TABLET PO SCH (13:08)
[2016-11-17] MEDS: ENOXAPARIN 100 MG/ML SYRINGE SUBCUT SCH (13:08)
[2016-11-17 13:27] LABS: ABG Base Excess -0.5 MMOL/L (-2.5-2.5); ABG Oxygen Saturation 99.5 % (95-100); ABG PH 7.439 (7.35-7.45); ABG TCO2 20.4 MMOL/L (23-27); Glucose Heart Surgery 144 MG/DL (74-106); Hematocrit Heart Surgery 36.4 PERCENT (42-52); Hemoglobin Heart Surgery 11.8 G/DL (14.0-18.0); Potassium Heart/CVR 3.4 MMOL/L (3.5-5.1)
--- NOTE | 2016-11-17 13:31 | XRay Report ---
Referring Physician: Asaf Andrade Exam: XR chest 1V portable Date: November 17, 2016 at 12:24 PM Reason: Line placement Comparison: Chest 2 views November 13, 2016 Findings: An endotracheal tube is in place with its distal tip at the level of the sternoclavicular junctions, approximately 4 cm above the carmelina. A right IJ catheter is present with its distal tip at the right atrium. Mediastinal drains are suspected. The cardiac silhouette is again enlarged, and there has been interval sternotomy. There may be minimal pneumomediastinum related to recent surgery. Mild scattered opacities are seen within the mid and lower lung zones bilaterally. This likely represents atelectasis and possibly pulmonary edema. No pneumothorax is identified. The osseous structures otherwise appear stable. Impression: 1. Tubes and lines as above. 2. Cardiomegaly with interval sternotomy. 3. There are mild scattered opacities within the mid and lower lung zones bilaterally. This likely represents atelectasis and possibly pulmonary edema. PROCEDURE INTERPRETED AT [facility] DEPARTMENT OF RADIOLOGY Final Report Signed by: Dr. Favian Carbajal
[2016-11-17] MEDS: POTASSIUM CHLORIDE RIDER 20 MEQ in PREMIX 1 EACH IV PRN ×2 (13:41→15:55)
[2016-11-17 14:51] LABS: ABG Base Excess 0.6 MMOL/L (-2.5-2.5); ABG Oxygen Saturation 98.7 % (95-100); ABG PCO2 35.2 MM HG (35-48); ABG PH 7.446 (7.35-7.45); ABG TCO2 21.6 MMOL/L (23-27); Glucose Heart Surgery 118 MG/DL (74-106); Hematocrit Heart Surgery 35.1 PERCENT (42-52); Hemoglobin Heart Surgery 11.4 G/DL (14.0-18.0); Potassium Heart/CVR 4.1 MMOL/L (3.5-5.1)
[2016-11-17] MEDS: LACTATED RINGERS 1,000 ML IV PRN ×2 (15:45→17:17)
[2016-11-17] MEDS: MIDAZOLAM 10 MG/2 ML VIAL IV PRN ×2 (16:13→22:12)
[2016-11-17] MEDS: CEFUROXIME INJ 1,500 MG in SODIUM CHLORIDE 0.9% 100 ML IV SCH (18:35)
[2016-11-17 18:51] LABS: ABG Base Excess -0.1 MMOL/L (-2.5-2.5); ABG HCO3 24.4 MMOL/L (20-26); ABG Oxygen Saturation 98.1 % (95-100); ABG PCO2 34.9 MM HG (35-48); ABG PO2 92.8 MM HG (80-95); ABG TCO2 21.3 MMOL/L (23-27); Glucose Heart Surgery 132 MG/DL (74-106); Hematocrit Heart Surgery 32.2 PERCENT (42-52); Hemoglobin Heart Surgery 10.4 G/DL (14.0-18.0); Potassium Heart/CVR 4.4 MMOL/L (3.5-5.1)
[2016-11-17] MEDS: MIDAZOLAM 2 MG/2 ML VIAL IV PRN ×2 (19:10→21:33)
[2016-11-17] MEDS ORDERED: AMIODARONE INJ 150 MG in DEXTROSE 5% 100 ML IV ONE (19:11)
[2016-11-17] MEDS ORDERED: AMIODARONE 150 MG/3 ML VIAL ONE (19:14)
[2016-11-17] MEDS ORDERED: AMIODARONE 450 MG/9 ML VIAL IV ONE (19:15)
[2016-11-17] MEDS ORDERED: AMIODARONE INJ 450 MG in DEXTROSE 5% 241 ML IV SCH (19:30)
[2016-11-17] MEDS ORDERED: FUROSEMIDE 40 MG/4 ML VIAL IV ONE (20:30)
[2016-11-17 20:51] LABS: CKMB % 3.7 %
[2016-11-17 20:56] LABS: Troponin I Only 3.47 NG/ML (0.00-0.045)
[2016-11-17] MEDS ORDERED: CHLORHEXIDINE 0.12% ORAL RINSE 60 ML BOTTLE SWISH/SPIT SCH (21:00)
[2016-11-17] MEDS ORDERED: METOPROLOL TARTRATE 25 MG TABLET PO SCH (21:00)
[2016-11-17] MEDS: INSULIN REGULAR 100 UNIT/ML IV PRN ×2 (21:26→23:10)
[2016-11-18] MEDS: KETOROLAC 30 MG/1 ML VIAL IV SCH ×2 (00:15→06:24)
[2016-11-18 01:30] LABS: ABG Base Excess -1.5 MMOL/L (-2.5-2.5); ABG HCO3 23.2 MMOL/L (20-26); ABG Oxygen Saturation 99.6 % (95-100); ABG PCO2 40.5 MM HG (35-48); ABG PH 7.373 (7.35-7.45); ABG TCO2 21.4 MMOL/L (23-27); Glucose Heart Surgery 147 MG/DL (74-106); Hematocrit Heart Surgery 32.8 PERCENT (42-52); Hemoglobin Heart Surgery 10.6 G/DL (14.0-18.0); Potassium Heart/CVR 4.1 MMOL/L (3.5-5.1)
[2016-11-18] MEDS ORDERED: AMIODARONE INJ 450 MG in DEXTROSE 5% 241 ML IV SCH (01:30)
[2016-11-18 02:07] LABS: ABG Base Excess -2.2 MMOL/L (-2.5-2.5); ABG HCO3 22.6 MMOL/L (20-26); ABG Oxygen Saturation 98.2 % (95-100); ABG PCO2 43.8 MM HG (35-48); ABG TCO2 21.5 MMOL/L (23-27); Glucose Heart Surgery 145 MG/DL (74-106); Hematocrit Heart Surgery 32.9 PERCENT (42-52); Hemoglobin Heart Surgery 10.7 G/DL (14.0-18.0)
[2016-11-18] MEDS: POTASSIUM CHLORIDE RIDER 20 MEQ in PREMIX 1 EACH IV PRN (03:02)
[2016-11-18 04:06] LABS: ABG Base Excess -3.2 MMOL/L (-2.5-2.5); ABG HCO3 22.2 MMOL/L (20-26); ABG PCO2 41.2 MM HG (35-48); ABG PO2 123.9 MM HG (80-95); ABG TCO2 23.5 MMOL/L (23-27); Glucose Heart Surgery 139 MG/DL (74-106); Hemoglobin Heart Surgery 11.6 G/DL (14.0-18.0); Potassium Heart/CVR 4.4 MMOL/L (3.5-5.1)
[2016-11-18 04:06] LABS: Basophils % 0.1 % (0.0-0.8); Hematocrit 33.4 VOL% (42.0-52.0); Hemoglobin 10.9 GM/DL (14.0-18.0); Immature Granulocytes % 0.6 %; Immature Granulocytes Absolute 0.12 #; Lymphocytes % 5.1 % (21.2-54.2); Mean Corpuscular HGB Conc 32.6 GM/DL (32-36); Mean Corpuscular Hemoglobin 28 PG (27-34); Mean Corpuscular Volume 85.4 FL (87-102); Mean Platelet Volume 10.5 FL (9.6-12.0); Monocytes # 0.9 10*3/uL (0.11-0.8); Neutrophils # 16.6 10*3/uL (1.4-7.4); Neutrophils % 89.2 % (38.7-73.9); Platelet Count 164 T/CUMM (130-400); Red Blood Count 3.91 MC/CUMM (3.8-5.5); Red Cell Distribution Width 13.4 % (9.3-17.3); White Blood Count 18.6 T/CUMM (4-12)
[2016-11-18 04:34] LABS: Albumin 3.4 G/DL (3.4-5.0); Bilirubin,Direct 0.1 MG/DL (0.0-0.20); Bilirubin,Total 0.5 MG/DL (0.2-1.0); Calcium 8.1 MG/DL (8.5-10.1); Magnesium 2.2 MG/DL (1.8-2.4); Osmolality,Calculated 292.7 MOS/KG (273-304); Potassium 4.7 MMOL/L (3.5-5.1); Total Protein 5.6 G/DL (6.4-8.3)
[2016-11-18 04:36] LABS: CKMB % 2.8 %
[2016-11-18 04:37] LABS: Troponin I Only 2.39 NG/ML (0.00-0.045)
--- NOTE | 2016-11-18 05:59 | Cardiothoracic Progress Note ---
Cardiothoracic Subjective Interval history: Patient is awake alert and extubated. Vital signs the been stable through the night and he remains in sinus rhythm with a stable blood pressure. The blood gases are excellent postextubation. Urine output has been adequate and creatinine is 1.5 up from 1.3 yesterday. Chest tube drainage is minimal and his chest tubes are discontinued. I think he can be transferred to telemetry later this morning. Exam (Progress Note) - Constitutional Vitals: Period Temp Pulse Resp BP Sys/Wong Pulse Ox Last 24 Hr 97.0 F-99.3 F 65-868 10-16 77-170/39-125 98-100 Result/EKG - Labs CBC & BMP: 11/18/16 03:50 11/18/16 03:50 Labs: Laboratory Results - last 24 hr 11/16/16 11/17/16 11/17/16 03:30 07:05 07:49 WBC RBC Hgb Hct MCV MCH MCHC RDW Plt Count 95 L D MPV Neut % (Auto) Lymph % (Auto) [place] % (Auto) Eos % (Auto) Baso % (Auto) Neut # (Auto) Lymph # (Auto) [place] # (Auto) Eos # (Auto) Baso # (Auto) Immature Gran % Nucleated RBC % Immature Gran # Nucleated RBCs # INR PT Patient/Control Mix Circ Anticoag PTT Patient Temperature ABG pH ABG pH at Pt Temp ABG pCO2 ABG pCO2 at Pt Temp ABG pO2 ABG pO2 at Pt Temp ABG HCO3 ABG Total CO2 ABG O2 Saturation ABG Base Excess ABG Sodium VBG pH VBG pCO2 VBG pO2 VBG HCO3 VBG Total CO2 VBG O2 Saturation VBG Base Excess Hemoglobin Hematocrit Potassium Glucose Ionized Calcium FiO2 Sodium Chloride Carbon Dioxide Anion Gap BUN Creatinine GFR Calculation BUN/Creatinine Ratio POC Glucose Calculated Osmolality Calcium Venous Ioniz Calcium Magnesium Total Bilirubin Direct Bilirubin AST ALT Alkaline Phosphatase Total Creatine Kinase CK-MB (CK-2) CK and CKMB Interp Troponin I Total Protein Albumin Globulin Albumin/Globulin Ratio Urine Color Straw Urine Appearance Clear Urine pH 7.0 Ur Specific [place] 1.009 Urine Protein Negative Urine Glucose (UA) 50 Urine Ketones Negative Urine Blood Small Urine Nitrate Negative Urine Bilirubin Negative Urine Urobilinogen < 2.0 H Urine Leukocytes Negative Urine RBC 1 Urine WBC <1 Ur Squamous Epith Cells Occasional Ur Culture Indicated? Not indicated Blood Type B POSITIVE Antibody Screen Negative Crossmatch See Detail 11/17/16 11/17/16 11/17/16 07:49 09:30 10:05 WBC RBC Hgb Hct MCV MCH MCHC RDW Plt Count MPV Neut % (Auto) Lymph % (Auto) [place] % (Auto) Eos % (Auto) Baso % (Auto) Neut # (Auto) Lymph # (Auto) [place] # (Auto) Eos # (Auto) Baso # (Auto) Immature Gran % Nucleated RBC % Immature Gran # Nucleated RBCs # INR PT Patient/Control Mix Circ Anticoag PTT Patient Temperature 37 34 35 ABG pH 7.439 ABG pH at Pt Temp 7.439 7.421 7.455 ABG pCO2 35.5 ABG pCO2 at Pt Temp 35.5 38.0 35.0 ABG pO2 170.0 H ABG pO2 at Pt Temp 170.0 38.3 32.3 ABG HCO3 24.8 ABG Total CO2 20.9 L ABG O2 Saturation 99.5 ABG Base Excess 0.4 ABG Sodium 137 131 L 133 L VBG pH 7.377 7.425 VBG pCO2 44.0 38.6 L VBG pO2 47.1 H 37.1 VBG HCO3 24.7 25.0 VBG Total CO2 23.9 23.2 VBG O2 Saturation 83.3 76.8 VBG Base Excess 0.5 1.0 Hemoglobin 13.2 L 9.2 L D 9.6 L Hematocrit 40.5 L 28.6 L 29.6 L Potassium 4.0 5.0 4.6 Glucose 172 H 340 H 276 H Ionized Calcium 1.13 L FiO2 80.00 80.00 Sodium Chloride Carbon Dioxide Anion Gap BUN Creatinine GFR Calculation BUN/Creatinine Ratio POC Glucose Calculated Osmolality Calcium Venous Ioniz Calcium 0.94 L 1.02 L Magnesium Total Bilirubin Direct Bilirubin AST ALT Alkaline Phosphatase Total Creatine Kinase CK-MB (CK-2) CK and CKMB Interp Troponin I Total Protein Albumin Globulin Albumin/Globulin Ratio Urine Color Urine Appearance Urine pH Ur Specific [place] Urine Protein Urine Glucose (UA) Urine Ketones Urine Blood Urine Nitrate Urine Bilirubin Urine Urobilinogen Urine Leukocytes Urine RBC Urine WBC Ur Squamous Epith Cells Ur Culture Indicated? Blood Type Antibody Screen Crossmatch 11/17/16 11/17/16 11/17/16 10:33 10:33 11:45 WBC RBC Hgb Hct MCV MCH MCHC RDW Plt Count 84 L MPV Neut % (Auto) Lymph % (Auto) [place] % (Auto) Eos % (Auto) Baso % (Auto) Neut # (Auto) Lymph # (Auto) [place] # (Auto) Eos # (Auto) Baso # (Auto) Immature Gran % Nucleated RBC % Immature Gran # Nucleated RBCs # INR PT Patient/Control Mix Circ Anticoag PTT Patient Temperature 37 ABG pH 7.408 ABG pH at Pt Temp 7.408 ABG pCO2 38.1 ABG pCO2 at Pt Temp 38.1 ABG pO2 120.0 H ABG pO2 at Pt Temp 120.0 ABG HCO3 24.2 ABG Total CO2 20.5 L ABG O2 Saturation 98.8 ABG Base Excess -0.3 ABG Sodium 135 VBG pH VBG pCO2 VBG pO2 VBG HCO3 VBG Total CO2 VBG O2 Saturation VBG Base Excess Hemoglobin 14.6 D Hematocrit 44.7 Potassium 3.8 Glucose 206 H Ionized Calcium 1.25 FiO2 Sodium Chloride Carbon Dioxide Anion Gap BUN Creatinine GFR Calculation BUN/Creatinine Ratio POC Glucose Calculated Osmolality Calcium Venous Ioniz Calcium Magnesium Total Bilirubin Direct Bilirubin AST ALT Alkaline Phosphatase Total Creatine Kinase 197 D CK-MB (CK-2) 14.3 H CK and CKMB Interp 7.3 Troponin I 2.900 H Total Protein Albumin Globulin Albumin/Globulin Ratio Urine Color Urine Appearance Urine pH Ur Specific [place] Urine Protein Urine Glucose (UA) Urine Ketones Urine Blood Urine Nitrate Urine Bilirubin Urine Urobilinogen Urine Leukocytes Urine RBC Urine WBC Ur Squamous Epith Cells Ur Culture Indicated? Blood Type Antibody Screen Crossmatch 11/17/16 11/17/16 11/17/16 11:45 11:45 11:45 WBC 13.9 H D RBC 4.24 Hgb 11.7 L Hct 34.7 L MCV 81.8 L MCH 28 MCHC 33.7 RDW 13.2 Plt Count 166 D MPV 10.8 Neut % (Auto) 86.3 H Lymph % (Auto) 6.8 L [place] % (Auto) 4.5 Eos % (Auto) 1.5 Baso % (Auto) 0.2 Neut # (Auto) 12.0 H Lymph # (Auto) 0.9 L [place] # (Auto) 0.6 Eos # (Auto) 0.2 Baso # (Auto) 0.0 Immature Gran % 0.7 Nucleated RBC % 0.0 Immature Gran # 0.10 Nucleated RBCs # 0.00 INR 1.2 PT Patient/Control Mix 12.8 Circ Anticoag PTT 39.7 D Patient Temperature ABG pH ABG pH at Pt Temp ABG pCO2 ABG pCO2 at Pt Temp ABG pO2 ABG pO2 at Pt Temp ABG HCO3 ABG Total CO2 ABG O2 Saturation ABG Base Excess ABG Sodium VBG pH VBG pCO2 VBG pO2 VBG HCO3 VBG Total CO2 VBG O2 Saturation VBG Base Excess Hemoglobin Hematocrit Potassium 4.8 Glucose 159 H Ionized Calcium FiO2 Sodium 143 Chloride 108 H Carbon Dioxide 23 Anion Gap 16.8 H BUN 15 Creatinine 1.20 GFR Calculation 79 BUN/Creatinine Ratio 12.00 POC Glucose Calculated Osmolality 288.0 Calcium 8.9 Venous Ioniz Calcium Magnesium 2.5 H Total Bilirubin 0.90 Direct Bilirubin AST 65 H ALT 81 H Alkaline Phosphatase 31 L Total Creatine Kinase CK-MB (CK-2) CK and CKMB Interp Troponin I Total Protein 5.3 L Albumin 3.1 L Globulin 2.2 L Albumin/Globulin Ratio 1.4 Urine Color Urine Appearance Urine pH Ur Specific [place] Urine Protein Urine Glucose (UA) Urine Ketones Urine Blood Urine Nitrate Urine Bilirubin Urine Urobilinogen Urine Leukocytes Urine RBC Urine WBC Ur Squamous Epith Cells Ur Culture Indicated? Blood Type Antibody Screen Crossmatch 11/17/16 11/17/16 11/17/16 11:45 13:18 14:26 WBC RBC Hgb Hct MCV MCH MCHC RDW Plt Count MPV Neut % (Auto) Lymph % (Auto) [place] % (Auto) Eos % (Auto) Baso % (Auto) Neut # (Auto) Lymph # (Auto) [place] # (Auto) Eos # (Auto) Baso # (Auto) Immature Gran % Nucleated RBC % Immature Gran # Nucleated RBCs # INR PT Patient/Control Mix Circ Anticoag PTT Patient Temperature ABG pH 7.445 7.439 7.446 ABG pH at Pt Temp ABG pCO2 35.9 34.0 L 35.2 ABG pCO2 at Pt Temp ABG pO2 207.0 H 144.0 H 106.0 H ABG pO2 at Pt Temp ABG HCO3 25.3 24.0 25.0 ABG Total CO2 21.8 L 20.4 L 21.6 L ABG O2 Saturation 99.9 99.5 98.7 ABG Base Excess 1.0 -0.5 0.6 ABG Sodium VBG pH VBG pCO2 VBG pO2 VBG HCO3 VBG Total CO2 VBG O2 Saturation VBG Base Excess Hemoglobin 12.0 L D 11.8 L 11.4 L Hematocrit 37.0 L 36.4 L 35.1 L Potassium 4.5 3.4 L 4.1 Glucose 166 H 144 H 118 H Ionized Calcium FiO2 Sodium Chloride Carbon Dioxide Anion Gap BUN Creatinine GFR Calculation BUN/Creatinine Ratio POC Glucose Calculated Osmolality Calcium Venous Ioniz Calcium Magnesium Total Bilirubin Direct Bilirubin AST ALT Alkaline Phosphatase Total Creatine Kinase CK-MB (CK-2) CK and CKMB Interp Troponin I Total Protein Albumin Globulin Albumin/Globulin Ratio Urine Color Urine Appearance Urine pH Ur Specific [place] Urine Protein Urine Glucose (UA) Urine Ketones Urine Blood Urine Nitrate Urine Bilirubin Urine Urobilinogen Urine Leukocytes Urine RBC Urine WBC Ur Squamous Epith Cells Ur Culture Indicated? Blood Type Antibody Screen Crossmatch 11/17/16 11/17/16 11/17/16 15:01 16:20 18:47 WBC RBC Hgb Hct MCV MCH MCHC RDW Plt Count MPV Neut % (Auto) Lymph % (Auto) [place] % (Auto) Eos % (Auto) Baso % (Auto) Neut # (Auto) Lymph # (Auto) [place] # (Auto) Eos # (Auto) Baso # (Auto) Immature Gran % Nucleated RBC % Immature Gran # Nucleated RBCs # INR PT Patient/Control Mix Circ Anticoag PTT Patient Temperature ABG pH 7.440 ABG pH at Pt Temp ABG pCO2 34.9 L ABG pCO2 at Pt Temp ABG pO2 92.8 ABG pO2 at Pt Temp ABG HCO3 24.4 ABG Total CO2 21.3 L ABG O2 Saturation 98.1 ABG Base Excess -0.1 ABG Sodium VBG pH VBG pCO2 VBG pO2 VBG HCO3 VBG Total CO2 VBG O2 Saturation VBG Base Excess Hemoglobin 10.4 L Hematocrit 32.2 L Potassium 4.4 Glucose 132 H Ionized Calcium FiO2 Sodium Chloride Carbon Dioxide Anion Gap BUN Creatinine GFR Calculation BUN/Creatinine Ratio POC Glucose 104 125 H Calculated Osmolality Calcium Venous Ioniz Calcium Magnesium Total Bilirubin Direct Bilirubin AST ALT Alkaline Phosphatase Total Creatine Kinase CK-MB (CK-2) CK and CKMB Interp Troponin I Total Protein Albumin Globulin Albumin/Globulin Ratio Urine Color Urine Appearance Urine pH Ur Specific [place] Urine Protein Urine Glucose (UA) Urine Ketones Urine Blood Urine Nitrate Urine Bilirubin Urine Urobilinogen Urine Leukocytes Urine RBC Urine WBC Ur Squamous Epith Cells Ur Culture Indicated? Blood Type Antibody Screen Crossmatch 11/17/16 11/18/16 11/18/16 20:00 01:20 02:00 WBC RBC Hgb Hct MCV MCH MCHC RDW Plt Count MPV Neut % (Auto) Lymph % (Auto) [place] % (Auto) Eos % (Auto) Baso % (Auto) Neut # (Auto) Lymph # (Auto) [place] # (Auto) Eos # (Auto) Baso # (Auto) Immature Gran % Nucleated RBC % Immature Gran # Nucleated RBCs # INR PT Patient/Control Mix Circ Anticoag PTT Patient Temperature ABG pH 7.373 7.340 L ABG pH at Pt Temp ABG pCO2 40.5 43.8 ABG pCO2 at Pt Temp ABG pO2 139.0 H 109.0 H ABG pO2 at Pt Temp ABG HCO3 23.2 22.6 ABG Total CO2 21.4 L 21.5 L ABG O2 Saturation 99.6 98.2 ABG Base Excess -1.5 -2.2 ABG Sodium VBG pH VBG pCO2 VBG pO2 VBG HCO3 VBG Total CO2 VBG O2 Saturation VBG Base Excess Hemoglobin 10.6 L 10.7 L Hematocrit 32.8 L 32.9 L Potassium 4.1 4.0 Glucose 147 H 145 H Ionized Calcium FiO2 Sodium Chloride Carbon Dioxide Anion Gap BUN Creatinine GFR Calculation BUN/Creatinine Ratio POC Glucose Calculated Osmolality Calcium Venous Ioniz Calcium Magnesium Total Bilirubin Direct Bilirubin AST ALT Alkaline Phosphatase Total Creatine Kinase 240 D CK-MB (CK-2) 8.8 H D CK and CKMB Interp 3.7 Troponin I 3.470 H Total Protein Albumin Globulin Albumin/Globulin Ratio Urine Color Urine Appearance Urine pH Ur Specific [place] Urine Protein Urine Glucose (UA) Urine Ketones Urine Blood Urine Nitrate Urine Bilirubin Urine Urobilinogen Urine Leukocytes Urine RBC Urine WBC Ur Squamous Epith Cells Ur Culture Indicated? Blood Type Antibody Screen Crossmatch 11/18/16 11/18/16 11/18/16 03:50 03:50 03:50 WBC 18.6 H D RBC 3.91 Hgb 10.9 L Hct 33.4 L MCV 85.4 L MCH 28 MCHC 32.6 RDW 13.4 Plt Count 164 MPV 10.5 Neut % (Auto) 89.2 H Lymph % (Auto) 5.1 L [place] % (Auto) 5.0 Eos % (Auto) 0.0 Baso % (Auto) 0.1 Neut # (Auto) 16.6 H Lymph # (Auto) 1.0 L [place] # (Auto) 0.9 H Eos # (Auto) 0.0 Baso # (Auto) 0.0 Immature Gran % 0.6 Nucleated RBC % 0.0 Immature Gran # 0.12 Nucleated RBCs # 0.00 INR PT Patient/Control Mix Circ Anticoag PTT Patient Temperature ABG pH ABG pH at Pt Temp ABG pCO2 ABG pCO2 at Pt Temp ABG pO2 ABG pO2 at Pt Temp ABG HCO3 ABG Total CO2 ABG O2 Saturation ABG Base Excess ABG Sodium VBG pH VBG pCO2 VBG pO2 VBG HCO3 VBG Total CO2 VBG O2 Saturation VBG Base Excess Hemoglobin Hematocrit Potassium 4.7 Glucose 141 H Ionized Calcium FiO2 Sodium 145 Chloride 111 H Carbon Dioxide 23 Anion Gap 15.7 H BUN 20 H Creatinine 1.50 H GFR Calculation 60 BUN/Creatinine Ratio 13.00 POC Glucose Calculated Osmolality 292.7 Calcium 8.1 L Venous Ioniz Calcium Magnesium 2.2 Total Bilirubin 0.50 Direct Bilirubin 0.1 AST 65 H ALT 82 H Alkaline Phosphatase 24 L Total Creatine Kinase 329 H D CK-MB (CK-2) 9.3 H CK and CKMB Interp 2.8 Troponin I 2.390 H D Total Protein 5.6 L Albumin 3.4 Globulin 2.2 L Albumin/Globulin Ratio 1.5 Urine Color Urine Appearance Urine pH Ur Specific [place] Urine Protein Urine Glucose (UA) Urine Ketones Urine Blood Urine Nitrate Urine Bilirubin Urine Urobilinogen Urine Leukocytes Urine RBC Urine WBC Ur Squamous Epith Cells Ur Culture Indicated? Blood Type Antibody Screen Crossmatch 11/18/16 04:03 WBC RBC Hgb Hct MCV MCH MCHC RDW Plt Count MPV Neut % (Auto) Lymph % (Auto) [place] % (Auto) Eos % (Auto) Baso % (Auto) Neut # (Auto) Lymph # (Auto) [place] # (Auto) Eos # (Auto) Baso # (Auto) Immature Gran % Nucleated RBC % Immature Gran # Nucleated RBCs # INR PT Patient/Control Mix Circ Anticoag PTT Patient Temperature ABG pH 7.350 ABG pH at Pt Temp ABG pCO2 41.2 ABG pCO2 at Pt Temp ABG pO2 123.9 H ABG pO2 at Pt Temp ABG HCO3 22.2 ABG Total CO2 23.5 ABG O2 Saturation 98.0 ABG Base Excess -3.2 L ABG Sodium VBG pH VBG pCO2 VBG pO2 VBG HCO3 VBG Total CO2 VBG O2 Saturation VBG Base Excess Hemoglobin 11.6 L Hematocrit 34.0 L Potassium 4.4 Glucose 139 H Ionized Calcium FiO2 Sodium Chloride Carbon Dioxide Anion Gap BUN Creatinine GFR Calculation BUN/Creatinine Ratio POC Glucose Calculated Osmolality Calcium Venous Ioniz Calcium Magnesium Total Bilirubin Direct Bilirubin AST ALT Alkaline Phosphatase Total Creatine Kinase CK-MB (CK-2) CK and CKMB Interp Troponin I Total Protein Albumin Globulin Albumin/Globulin Ratio Urine Color Urine Appearance Urine pH Ur Specific [place] Urine Protein Urine Glucose (UA) Urine Ketones Urine Blood Urine Nitrate Urine Bilirubin Urine Urobilinogen Urine Leukocytes Urine RBC Urine WBC Ur Squamous Epith Cells Ur Culture Indicated? Blood Type Antibody Screen Crossmatch Quality Measures - VTE Contraindication to Pharmacological VTE Prophylaxis: Already on Theraputic Agent , No Prophylaxis Needed
[2016-11-18] MEDS: INSULIN REGULAR 100 UNIT/ML IV PRN (06:20)
[2016-11-18 06:43] LABS: ABG Base Excess -3.2 MMOL/L (-2.5-2.5); ABG HCO3 21.8 MMOL/L (20-26); ABG Oxygen Saturation 97.4 % (95-100); ABG PCO2 44.2 MM HG (35-48); ABG PH 7.322 (7.35-7.45); ABG TCO2 20.7 MMOL/L (23-27); Glucose Heart Surgery 150 MG/DL (74-106); Hematocrit Heart Surgery 34.1 PERCENT (42-52); Hemoglobin Heart Surgery 11.1 G/DL (14.0-18.0); Potassium Heart/CVR 4.5 MMOL/L (3.5-5.1)
--- NOTE | 2016-11-18 06:49 | Cardiology Progress Note ---
Cardiology - PN: Subj Interval history: Cardiology note Postop day #1 LOPEZ graft to LAD and vein graft OM branch. Mid RCA occluded. Preop EF 30%. Extubated and alert. Patient had paroxysmal atrial fibrillation last night that converted with IV amiodarone Blood pressure 106/50 off nipride O2 sat 99 on 2 L cannula Chest tube pulled early this morning Decreased breath sounds bilaterally Regular rhythm no gallop Abdomen soft benign 1+ leg edema Lab data today Sodium 145 potassium 4.7 chloride 111 CO2 23 BUN 20 creatinine 1.50 Magnesium 2.2 glucose 141 White count 18.6 hemoglobin 10.9 hematocrit 33.4 Impression Postop day 1 two-vessel CABG Preop EF 30% Postop atrial fibrillation converted to sinus with IV amiodarone Hypertension Plan Transfer to telemetry IV amiodarone BP meds as needed Exam (Progress Note) - Constitutional Vitals: Period Temp Pulse Resp BP Sys/Wong Pulse Ox Last 24 Hr 97.0 F-99.3 F 65-868 10-16 77-170/39-125 98-100 Result/EKG - Labs CBC & BMP: 11/18/16 03:50 11/18/16 03:50 Labs: Laboratory Results - last 24 hr 11/16/16 11/17/16 11/17/16 03:30 07:05 07:49 WBC RBC Hgb Hct MCV MCH MCHC RDW Plt Count 95 L D MPV Neut % (Auto) Lymph % (Auto) [place] % (Auto) Eos % (Auto) Baso % (Auto) Neut # (Auto) Lymph # (Auto) [place] # (Auto) Eos # (Auto) Baso # (Auto) Immature Gran % Nucleated RBC % Immature Gran # Nucleated RBCs # INR PT Patient/Control Mix Circ Anticoag PTT Patient Temperature ABG pH ABG pH at Pt Temp ABG pCO2 ABG pCO2 at Pt Temp ABG pO2 ABG pO2 at Pt Temp ABG HCO3 ABG Total CO2 ABG O2 Saturation ABG Base Excess ABG Sodium VBG pH VBG pCO2 VBG pO2 VBG HCO3 VBG Total CO2 VBG O2 Saturation VBG Base Excess Hemoglobin Hematocrit Potassium Glucose Ionized Calcium FiO2 Sodium Chloride Carbon Dioxide Anion Gap BUN Creatinine GFR Calculation BUN/Creatinine Ratio POC Glucose Calculated Osmolality Calcium Venous Ioniz Calcium Magnesium Total Bilirubin Direct Bilirubin AST ALT Alkaline Phosphatase Total Creatine Kinase CK-MB (CK-2) CK and CKMB Interp Troponin I Total Protein Albumin Globulin Albumin/Globulin Ratio Urine Color Straw Urine Appearance Clear Urine pH 7.0 Ur Specific Melba 1.009 Urine Protein Negative Urine Glucose (UA) 50 Urine Ketones Negative Urine Blood Small Urine Nitrate Negative Urine Bilirubin Negative Urine Urobilinogen < 2.0 H Urine Leukocytes Negative Urine RBC 1 Urine WBC <1 Ur Squamous Epith Cells Occasional Ur Culture Indicated? Not indicated Blood Type B POSITIVE Antibody Screen Negative Crossmatch See Detail 11/17/16 11/17/16 11/17/16 07:49 09:30 10:05 WBC RBC Hgb Hct MCV MCH MCHC RDW Plt Count MPV Neut % (Auto) Lymph % (Auto) [place] % (Auto) Eos % (Auto) Baso % (Auto) Neut # (Auto) Lymph # (Auto) [place] # (Auto) Eos # (Auto) Baso # (Auto) Immature Gran % Nucleated RBC % Immature Gran # Nucleated RBCs # INR PT Patient/Control Mix Circ Anticoag PTT Patient Temperature 37 34 35 ABG pH 7.439 ABG pH at Pt Temp 7.439 7.421 7.455 ABG pCO2 35.5 ABG pCO2 at Pt Temp 35.5 38.0 35.0 ABG pO2 170.0 H ABG pO2 at Pt Temp 170.0 38.3 32.3 ABG HCO3 24.8 ABG Total CO2 20.9 L ABG O2 Saturation 99.5 ABG Base Excess 0.4 ABG Sodium 137 131 L 133 L VBG pH 7.377 7.425 VBG pCO2 44.0 38.6 L VBG pO2 47.1 H 37.1 VBG HCO3 24.7 25.0 VBG Total CO2 23.9 23.2 VBG O2 Saturation 83.3 76.8 VBG Base Excess 0.5 1.0 Hemoglobin 13.2 L 9.2 L D 9.6 L Hematocrit 40.5 L 28.6 L 29.6 L Potassium 4.0 5.0 4.6 Glucose 172 H 340 H 276 H Ionized Calcium 1.13 L FiO2 80.00 80.00 Sodium Chloride Carbon Dioxide Anion Gap BUN Creatinine GFR Calculation BUN/Creatinine Ratio POC Glucose Calculated Osmolality Calcium Venous Ioniz Calcium 0.94 L 1.02 L Magnesium Total Bilirubin Direct Bilirubin AST ALT Alkaline Phosphatase Total Creatine Kinase CK-MB (CK-2) CK and CKMB Interp Troponin I Total Protein Albumin Globulin Albumin/Globulin Ratio Urine Color Urine Appearance Urine pH Ur Specific Melba Urine Protein Urine Glucose (UA) Urine Ketones Urine Blood Urine Nitrate Urine Bilirubin Urine Urobilinogen Urine Leukocytes Urine RBC Urine WBC Ur Squamous Epith Cells Ur Culture Indicated? Blood Type Antibody Screen Crossmatch 11/17/16 11/17/16 11/17/16 10:33 10:33 11:45 WBC RBC Hgb Hct MCV MCH MCHC RDW Plt Count 84 L MPV Neut % (Auto) Lymph % (Auto) [place] % (Auto) Eos % (Auto) Baso % (Auto) Neut # (Auto) Lymph # (Auto) [place] # (Auto) Eos # (Auto) Baso # (Auto) Immature Gran % Nucleated RBC % Immature Gran # Nucleated RBCs # INR PT Patient/Control Mix Circ Anticoag PTT Patient Temperature 37 ABG pH 7.408 ABG pH at Pt Temp 7.408 ABG pCO2 38.1 ABG pCO2 at Pt Temp 38.1 ABG pO2 120.0 H ABG pO2 at Pt Temp 120.0 ABG HCO3 24.2 ABG Total CO2 20.5 L ABG O2 Saturation 98.8 ABG Base Excess -0.3 ABG Sodium 135 VBG pH VBG pCO2 VBG pO2 VBG HCO3 VBG Total CO2 VBG O2 Saturation VBG Base Excess Hemoglobin 14.6 D Hematocrit 44.7 Potassium 3.8 Glucose 206 H Ionized Calcium 1.25 FiO2 Sodium Chloride Carbon Dioxide Anion Gap BUN Creatinine GFR Calculation BUN/Creatinine Ratio POC Glucose Calculated Osmolality Calcium Venous Ioniz Calcium Magnesium Total Bilirubin Direct Bilirubin AST ALT Alkaline Phosphatase Total Creatine Kinase 197 D CK-MB (CK-2) 14.3 H CK and CKMB Interp 7.3 Troponin I 2.900 H Total Protein Albumin Globulin Albumin/Globulin Ratio Urine Color Urine Appearance Urine pH Ur Specific Melba Urine Protein Urine Glucose (UA) Urine Ketones Urine Blood Urine Nitrate Urine Bilirubin Urine Urobilinogen Urine Leukocytes Urine RBC Urine WBC Ur Squamous Epith Cells Ur Culture Indicated? Blood Type Antibody Screen Crossmatch 11/17/16 11/17/16 11/17/16 11:45 11:45 11:45 WBC 13.9 H D RBC 4.24 Hgb 11.7 L Hct 34.7 L MCV 81.8 L MCH 28 MCHC 33.7 RDW 13.2 Plt Count 166 D MPV 10.8 Neut % (Auto) 86.3 H Lymph % (Auto) 6.8 L [place] % (Auto) 4.5 Eos % (Auto) 1.5 Baso % (Auto) 0.2 Neut # (Auto) 12.0 H Lymph # (Auto) 0.9 L [place] # (Auto) 0.6 Eos # (Auto) 0.2 Baso # (Auto) 0.0 Immature Gran % 0.7 Nucleated RBC % 0.0 Immature Gran # 0.10 Nucleated RBCs # 0.00 INR 1.2 PT Patient/Control Mix 12.8 Circ Anticoag PTT 39.7 D Patient Temperature ABG pH ABG pH at Pt Temp ABG pCO2 ABG pCO2 at Pt Temp ABG pO2 ABG pO2 at Pt Temp ABG HCO3 ABG Total CO2 ABG O2 Saturation ABG Base Excess ABG Sodium VBG pH VBG pCO2 VBG pO2 VBG HCO3 VBG Total CO2 VBG O2 Saturation VBG Base Excess Hemoglobin Hematocrit Potassium 4.8 Glucose 159 H Ionized Calcium FiO2 Sodium 143 Chloride 108 H Carbon Dioxide 23 Anion Gap 16.8 H BUN 15 Creatinine 1.20 GFR Calculation 79 BUN/Creatinine Ratio 12.00 POC Glucose Calculated Osmolality 288.0 Calcium 8.9 Venous Ioniz Calcium Magnesium 2.5 H Total Bilirubin 0.90 Direct Bilirubin AST 65 H ALT 81 H Alkaline Phosphatase 31 L Total Creatine Kinase CK-MB (CK-2) CK and CKMB Interp Troponin I Total Protein 5.3 L Albumin 3.1 L Globulin 2.2 L Albumin/Globulin Ratio 1.4 Urine Color Urine Appearance Urine pH Ur Specific Melba Urine Protein Urine Glucose (UA) Urine Ketones Urine Blood Urine Nitrate Urine Bilirubin Urine Urobilinogen Urine Leukocytes Urine RBC Urine WBC Ur Squamous Epith Cells Ur Culture Indicated? Blood Type Antibody Screen Crossmatch 11/17/16 11/17/16 11/17/16 11:45 13:18 14:26 WBC RBC Hgb Hct MCV MCH MCHC RDW Plt Count MPV Neut % (Auto) Lymph % (Auto) [place] % (Auto) Eos % (Auto) Baso % (Auto) Neut # (Auto) Lymph # (Auto) [place] # (Auto) Eos # (Auto) Baso # (Auto) Immature Gran % Nucleated RBC % Immature Gran # Nucleated RBCs # INR PT Patient/Control Mix Circ Anticoag PTT Patient Temperature ABG pH 7.445 7.439 7.446 ABG pH at Pt Temp ABG pCO2 35.9 34.0 L 35.2 ABG pCO2 at Pt Temp ABG pO2 207.0 H 144.0 H 106.0 H ABG pO2 at Pt Temp ABG HCO3 25.3 24.0 25.0 ABG Total CO2 21.8 L 20.4 L 21.6 L ABG O2 Saturation 99.9 99.5 98.7 ABG Base Excess 1.0 -0.5 0.6 ABG Sodium VBG pH VBG pCO2 VBG pO2 VBG HCO3 VBG Total CO2 VBG O2 Saturation VBG Base Excess Hemoglobin 12.0 L D 11.8 L 11.4 L Hematocrit 37.0 L 36.4 L 35.1 L Potassium 4.5 3.4 L 4.1 Glucose 166 H 144 H 118 H Ionized Calcium FiO2 Sodium Chloride Carbon Dioxide Anion Gap BUN Creatinine GFR Calculation BUN/Creatinine Ratio POC Glucose Calculated Osmolality Calcium Venous Ioniz Calcium Magnesium Total Bilirubin Direct Bilirubin AST ALT Alkaline Phosphatase Total Creatine Kinase CK-MB (CK-2) CK and CKMB Interp Troponin I Total Protein Albumin Globulin Albumin/Globulin Ratio Urine Color Urine Appearance Urine pH Ur Specific [place] Urine Protein Urine Glucose (UA) Urine Ketones Urine Blood Urine Nitrate Urine Bilirubin Urine Urobilinogen Urine Leukocytes Urine RBC Urine WBC Ur Squamous Epith Cells Ur Culture Indicated? Blood Type Antibody Screen Crossmatch 11/17/16 11/17/16 11/17/16 15:01 16:20 18:47 WBC RBC Hgb Hct MCV MCH MCHC RDW Plt Count MPV Neut % (Auto) Lymph % (Auto) [place] % (Auto) Eos % (Auto) Baso % (Auto) Neut # (Auto) Lymph # (Auto) [place] # (Auto) Eos # (Auto) Baso # (Auto) Immature Gran % Nucleated RBC % Immature Gran # Nucleated RBCs # INR PT Patient/Control Mix Circ Anticoag PTT Patient Temperature ABG pH 7.440 ABG pH at Pt Temp ABG pCO2 34.9 L ABG pCO2 at Pt Temp ABG pO2 92.8 ABG pO2 at Pt Temp ABG HCO3 24.4 ABG Total CO2 21.3 L ABG O2 Saturation 98.1 ABG Base Excess -0.1 ABG Sodium VBG pH VBG pCO2 VBG pO2 VBG HCO3 VBG Total CO2 VBG O2 Saturation VBG Base Excess Hemoglobin 10.4 L Hematocrit 32.2 L Potassium 4.4 Glucose 132 H Ionized Calcium FiO2 Sodium Chloride Carbon Dioxide Anion Gap BUN Creatinine GFR Calculation BUN/Creatinine Ratio POC Glucose 104 125 H Calculated Osmolality Calcium Venous Ioniz Calcium Magnesium Total Bilirubin Direct Bilirubin AST ALT Alkaline Phosphatase Total Creatine Kinase CK-MB (CK-2) CK and CKMB Interp Troponin I Total Protein Albumin Globulin Albumin/Globulin Ratio Urine Color Urine Appearance Urine pH Ur Specific [place] Urine Protein Urine Glucose (UA) Urine Ketones Urine Blood Urine Nitrate Urine Bilirubin Urine Urobilinogen Urine Leukocytes Urine RBC Urine WBC Ur Squamous Epith Cells Ur Culture Indicated? Blood Type Antibody Screen Crossmatch 11/17/16 11/18/16 11/18/16 20:00 01:20 02:00 WBC RBC Hgb Hct MCV MCH MCHC RDW Plt Count MPV Neut % (Auto) Lymph % (Auto) [place] % (Auto) Eos % (Auto) Baso % (Auto) Neut # (Auto) Lymph # (Auto) [place] # (Auto) Eos # (Auto) Baso # (Auto) Immature Gran % Nucleated RBC % Immature Gran # Nucleated RBCs # INR PT Patient/Control Mix Circ Anticoag PTT Patient Temperature ABG pH 7.373 7.340 L ABG pH at Pt Temp ABG pCO2 40.5 43.8 ABG pCO2 at Pt Temp ABG pO2 139.0 H 109.0 H ABG pO2 at Pt Temp ABG HCO3 23.2 22.6 ABG Total CO2 21.4 L 21.5 L ABG O2 Saturation 99.6 98.2 ABG Base Excess -1.5 -2.2 ABG Sodium VBG pH VBG pCO2 VBG pO2 VBG HCO3 VBG Total CO2 VBG O2 Saturation VBG Base Excess Hemoglobin 10.6 L 10.7 L Hematocrit 32.8 L 32.9 L Potassium 4.1 4.0 Glucose 147 H 145 H Ionized Calcium FiO2 Sodium Chloride Carbon Dioxide Anion Gap BUN Creatinine GFR Calculation BUN/Creatinine Ratio POC Glucose Calculated Osmolality Calcium Venous Ioniz Calcium Magnesium Total Bilirubin Direct Bilirubin AST ALT Alkaline Phosphatase Total Creatine Kinase 240 D CK-MB (CK-2) 8.8 H D CK and CKMB Interp 3.7 Troponin I 3.470 H Total Protein Albumin Globulin Albumin/Globulin Ratio Urine Color Urine Appearance Urine pH Ur Specific [place] Urine Protein Urine Glucose (UA) Urine Ketones Urine Blood Urine Nitrate Urine Bilirubin Urine Urobilinogen Urine Leukocytes Urine RBC Urine WBC Ur Squamous Epith Cells Ur Culture Indicated? Blood Type Antibody Screen Crossmatch 11/18/16 11/18/16 11/18/16 03:50 03:50 03:50 WBC 18.6 H D RBC 3.91 Hgb 10.9 L Hct 33.4 L MCV 85.4 L MCH 28 MCHC 32.6 RDW 13.4 Plt Count 164 MPV 10.5 Neut % (Auto) 89.2 H Lymph % (Auto) 5.1 L [place] % (Auto) 5.0 Eos % (Auto) 0.0 Baso % (Auto) 0.1 Neut # (Auto) 16.6 H Lymph # (Auto) 1.0 L [place] # (Auto) 0.9 H Eos # (Auto) 0.0 Baso # (Auto) 0.0 Immature Gran % 0.6 Nucleated RBC % 0.0 Immature Gran # 0.12 Nucleated RBCs # 0.00 INR PT Patient/Control Mix Circ Anticoag PTT Patient Temperature ABG pH ABG pH at Pt Temp ABG pCO2 ABG pCO2 at Pt Temp ABG pO2 ABG pO2 at Pt Temp ABG HCO3 ABG Total CO2 ABG O2 Saturation ABG Base Excess ABG Sodium VBG pH VBG pCO2 VBG pO2 VBG HCO3 VBG Total CO2 VBG O2 Saturation VBG Base Excess Hemoglobin Hematocrit Potassium 4.7 Glucose 141 H Ionized Calcium FiO2 Sodium 145 Chloride 111 H Carbon Dioxide 23 Anion Gap 15.7 H BUN 20 H Creatinine 1.50 H GFR Calculation 60 BUN/Creatinine Ratio 13.00 POC Glucose Calculated Osmolality 292.7 Calcium 8.1 L Venous Ioniz Calcium Magnesium 2.2 Total Bilirubin 0.50 Direct Bilirubin 0.1 AST 65 H ALT 82 H Alkaline Phosphatase 24 L Total Creatine Kinase 329 H D CK-MB (CK-2) 9.3 H CK and CKMB Interp 2.8 Troponin I 2.390 H D Total Protein 5.6 L Albumin 3.4 Globulin 2.2 L Albumin/Globulin Ratio 1.5 Urine Color Urine Appearance Urine pH Ur Specific [place] Urine Protein Urine Glucose (UA) Urine Ketones Urine Blood Urine Nitrate Urine Bilirubin Urine Urobilinogen Urine Leukocytes Urine RBC Urine WBC Ur Squamous Epith Cells Ur Culture Indicated? Blood Type Antibody Screen Crossmatch 11/18/16 11/18/16 04:03 06:15 WBC RBC Hgb Hct MCV MCH MCHC RDW Plt Count MPV Neut % (Auto) Lymph % (Auto) [place] % (Auto) Eos % (Auto) Baso % (Auto) Neut # (Auto) Lymph # (Auto) [place] # (Auto) Eos # (Auto) Baso # (Auto) Immature Gran % Nucleated RBC % Immature Gran # Nucleated RBCs # INR PT Patient/Control Mix Circ Anticoag PTT Patient Temperature ABG pH 7.350 7.322 L ABG pH at Pt Temp ABG pCO2 41.2 44.2 ABG pCO2 at Pt Temp ABG pO2 123.9 H 101.0 H ABG pO2 at Pt Temp ABG HCO3 22.2 21.8 ABG Total CO2 23.5 20.7 L ABG O2 Saturation 98.0 97.4 ABG Base Excess -3.2 L -3.2 L ABG Sodium VBG pH VBG pCO2 VBG pO2 VBG HCO3 VBG Total CO2 VBG O2 Saturation VBG Base Excess Hemoglobin 11.6 L 11.1 L Hematocrit 34.0 L 34.1 L Potassium 4.4 4.5 Glucose 139 H 150 H Ionized Calcium FiO2 Sodium Chloride Carbon Dioxide Anion Gap BUN Creatinine GFR Calculation BUN/Creatinine Ratio POC Glucose Calculated Osmolality Calcium Venous Ioniz Calcium Magnesium Total Bilirubin Direct Bilirubin AST ALT Alkaline Phosphatase Total Creatine Kinase CK-MB (CK-2) CK and CKMB Interp Troponin I Total Protein Albumin Globulin Albumin/Globulin Ratio Urine Color Urine Appearance Urine pH Ur Specific [place] Urine Protein Urine Glucose (UA) Urine Ketones Urine Blood Urine Nitrate Urine Bilirubin Urine Urobilinogen Urine Leukocytes Urine RBC Urine WBC Ur Squamous Epith Cells Ur Culture Indicated? Blood Type Antibody Screen Crossmatch Quality Measures - VTE Contraindication to Pharmacological VTE Prophylaxis: Already on Theraputic Agent , No Prophylaxis Needed
[2016-11-18] MEDS: CEFUROXIME INJ 1,500 MG in SODIUM CHLORIDE 0.9% 100 ML IV SCH (06:54)
[2016-11-18] MEDS ORDERED: ONDANSETRON 4 MG/2 ML VIAL IV PRN (07:08)
[2016-11-18] MEDS ORDERED: MAGNESIUM SULF RIDER 4 GM in PREMIX 1 EACH IV PRN (07:08)
[2016-11-18] MEDS ORDERED: GLUCAGON 1 MG VIAL IM PRN ×2 (07:08)
[2016-11-18] MEDS ORDERED: ACETAMINOPHEN 325 MG TABLET PO PRN (07:08)
[2016-11-18] MEDS ORDERED: MORPHINE 2 MG/1 ML SYRINGE IV PRN (07:08)
[2016-11-18] MEDS ORDERED: ZALEPLON 5 MG CAPSULE PO PRN (07:08)
[2016-11-18] MEDS ORDERED: ALUMINUM/MAGNES/SIMETH MAX STR 30 ML UDCUP PO PRN (07:08)
[2016-11-18] MEDS ORDERED: DEXTROSE 50% 25 GM/50 ML VIAL IV PRN ×2 (07:08)
[2016-11-18] MEDS ORDERED: MAGNESIUM SULF RIDER 2 GM in PREMIX 1 EACH IV PRN (07:08)
[2016-11-18] MEDS ORDERED: POTASSIUM CHLORIDE 20 MEQ TABLET PO PRN (07:08)
[2016-11-18] MEDS ORDERED: KETOROLAC 15 MG/1 ML VIAL IV PRN (07:08)
--- NOTE | 2016-11-18 07:11 | EKG Report ---
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
[2016-11-18] MEDS ORDERED: ALBUMIN 5% 12.5 GM/250 ML VIAL IV ONE (07:19)
--- NOTE | 2016-11-18 08:15 | Anesthesia ---
Anesthesia Post OP - Post Ansesthetic Evaluation Patient seen in post op: Yes Resp: other (extubated, on 02 NC) CV: other (amio infus) Mental: other (sleeping) Temp: within normal limits [id number]: within normal limits Nausea and Vomiting: within normal limits Pain: within normal limits
[2016-11-18] MEDS ORDERED: ALBUMIN 5% 12.5 GM in PREMIX 1 EACH IV ONE (08:58)
[2016-11-18] MEDS ORDERED: ASPIRIN EC 81 MG TABLET PO SCH (09:00)
[2016-11-18] MEDS: FERROUS SULFATE 325 MG TABLET PO SCH ×2 (09:09→10:46)
[2016-11-18] MEDS: ASPIRIN EC 325 MG TABLET PO SCH ×2 (09:09→10:44)
[2016-11-18] MEDS: sitaGLIPtin 100 MG TABLET PO SCH ×2 (09:09→10:46)
[2016-11-18] MEDS: METOPROLOL SUCCINATE XL 50 MG TABLET PO SCH ×2 (09:09→10:45)
[2016-11-18] MEDS: LISINOPRIL 20 MG TABLET PO SCH ×2 (09:09→10:47)
[2016-11-18] MEDS: DOCUSATE SODIUM 100 MG CAPSULE PO SCH ×2 (09:09→10:45)
[2016-11-18] MEDS: AMIODARONE 200 MG TABLET PO SCH ×3 (09:10→21:34)
[2016-11-18] MEDS: CHLORHEXIDINE 0.12% ORAL RINSE 60 ML BOTTLE SWISH/SPIT SCH ×3 (09:10→21:35)
[2016-11-18] MEDS: PANTOPRAZOLE 40 MG TABLET PO SCH ×2 (09:10→10:47)
[2016-11-18] MEDS: SODIUM CHLOR 0.45% KCL 20 MEQ 20 MEQ/1,000 ML BAG IV SCH (09:29)
[2016-11-18] MEDS ORDERED: METOCLOPRAMIDE 10 MG/2 ML VIAL IV PRN (10:51)
--- NOTE | 2016-11-18 11:11 | Event Note ---
Hospitalist note: We are following the patient for type II DM. Right now, glucose control is excellent. We are standing by as needed.
[2016-11-19 04:21] LABS: Basophils % 0.1 % (0.0-0.8); Hematocrit 32.6 VOL% (42.0-52.0); Hemoglobin 10.7 GM/DL (14.0-18.0); Immature Granulocytes % 0.6 %; Immature Granulocytes Absolute 0.11 #; Lymphocytes # 1.2 10*3/uL (1.4-4.0); Lymphocytes % 6.7 % (21.2-54.2); Mean Corpuscular HGB Conc 32.8 GM/DL (32-36); Mean Corpuscular Hemoglobin 28 PG (27-34); Mean Corpuscular Volume 84.7 FL (87-102); Mean Platelet Volume 12.3 FL (9.6-12.0); Monocytes % 10.9 % (1.7-12.7); Neutrophils # 14.7 10*3/uL (1.4-7.4); Neutrophils % 81.7 % (38.7-73.9); Platelet Count 162 T/CUMM (130-400); Red Blood Count 3.85 MC/CUMM (3.8-5.5); Red Cell Distribution Width 13.9 % (9.3-17.3)
[2016-11-19 04:54] LABS: Alanine Aminotransferase 67 U/L (16-61); Albumin 3.5 G/DL (3.4-5.0); Alkaline Phosphatase 29 U/L (45-117); Aspartate Amino Transferase 29 U/L (0-37); Bilirubin,Direct 0.1 MG/DL (0.0-0.20); Bilirubin,Indirect 0.8 MG/DL (0.0-1.0); Blood Urea Nitrogen 40 MG/DL (7-18); Calcium 8.3 MG/DL (8.5-10.1); Glucose 287 MG/DL (74-106); Magnesium 2.4 MG/DL (1.8-2.4); Osmolality,Calculated 302.1 MOS/KG (273-304); Potassium 4.8 MMOL/L (3.5-5.1); Sodium 142 MMOL/L (136-145); Total Protein 5.6 G/DL (6.4-8.3)
[2016-11-19] MEDS ORDERED: FUROSEMIDE 40 MG/4 ML VIAL IV ONE (06:00)
--- NOTE | 2016-11-19 06:21 | Cardiothoracic Progress Note ---
Cardiothoracic Subjective Interval history: The patient is awake alert and extubated and has been moved to telemetry. His vital signs are stable and he is breathing comfortably. His laboratory data is essentially within normal limits for postoperative day 2. We will try to increase his activity according to routine postoperative protocol. Exam (Progress Note) - Constitutional Vitals: Period Temp Pulse Resp BP Sys/Wong Pulse Ox Last 24 Hr 97.4 F-98.5 F 65-80 12-20 99-137/47-86 92-100 Result/EKG - Labs CBC & BMP: 11/19/16 03:17 11/19/16 03:17 Labs: Laboratory Results - last 24 hr 11/16/16 11/18/16 11/18/16 03:30 06:15 15:58 WBC RBC Hgb Hct MCV MCH MCHC RDW Plt Count MPV Neut % (Auto) Lymph % (Auto) [place] % (Auto) Eos % (Auto) Baso % (Auto) Neut # (Auto) Lymph # (Auto) [place] # (Auto) Eos # (Auto) Baso # (Auto) Immature Gran % Nucleated RBC % Immature Gran # Nucleated RBCs # ABG pH 7.322 L ABG pCO2 44.2 ABG pO2 101.0 H ABG HCO3 21.8 ABG Total CO2 20.7 L ABG O2 Saturation 97.4 ABG Base Excess -3.2 L Hemoglobin 11.1 L Hematocrit 34.1 L Potassium 4.5 Glucose 150 H Sodium Chloride Carbon Dioxide Anion Gap BUN Creatinine GFR Calculation BUN/Creatinine Ratio POC Glucose 231 H Calculated Osmolality Calcium Magnesium Total Bilirubin Direct Bilirubin Indirect Bilirubin AST ALT Alkaline Phosphatase Total Creatine Kinase CK-MB (CK-2) Troponin I Total Protein Albumin Globulin Albumin/Globulin Ratio Blood Type B POSITIVE Antibody Screen Negative Crossmatch See Detail 11/18/16 11/18/16 11/19/16 20:03 23:56 03:17 WBC 18.0 H RBC 3.85 Hgb 10.7 L Hct 32.6 L MCV 84.7 L MCH 28 MCHC 32.8 RDW 13.9 Plt Count 162 MPV 12.3 H Neut % (Auto) 81.7 H Lymph % (Auto) 6.7 L [place] % (Auto) 10.9 Eos % (Auto) 0.0 Baso % (Auto) 0.1 Neut # (Auto) 14.7 H Lymph # (Auto) 1.2 L [place] # (Auto) 2.0 H Eos # (Auto) 0.0 Baso # (Auto) 0.0 Immature Gran % 0.6 Nucleated RBC % 0.0 Immature Gran # 0.11 Nucleated RBCs # 0.00 ABG pH ABG pCO2 ABG pO2 ABG HCO3 ABG Total CO2 ABG O2 Saturation ABG Base Excess Hemoglobin Hematocrit Potassium Glucose Sodium Chloride Carbon Dioxide Anion Gap BUN Creatinine GFR Calculation BUN/Creatinine Ratio POC Glucose 284 H 305 H Calculated Osmolality Calcium Magnesium Total Bilirubin Direct Bilirubin Indirect Bilirubin AST ALT Alkaline Phosphatase Total Creatine Kinase CK-MB (CK-2) Troponin I Total Protein Albumin Globulin Albumin/Globulin Ratio Blood Type Antibody Screen Crossmatch 11/19/16 11/19/16 03:17 03:51 WBC RBC Hgb Hct MCV MCH MCHC RDW Plt Count MPV Neut % (Auto) Lymph % (Auto) [place] % (Auto) Eos % (Auto) Baso % (Auto) Neut # (Auto) Lymph # (Auto) [place] # (Auto) Eos # (Auto) Baso # (Auto) Immature Gran % Nucleated RBC % Immature Gran # Nucleated RBCs # ABG pH ABG pCO2 ABG pO2 ABG HCO3 ABG Total CO2 ABG O2 Saturation ABG Base Excess Hemoglobin Hematocrit Potassium 4.8 Glucose 287 H Sodium 142 Chloride 106 Carbon Dioxide 22 Anion Gap 18.8 H BUN 40 H D Creatinine 1.60 H GFR Calculation 56 BUN/Creatinine Ratio 25.00 H POC Glucose 285 H Calculated Osmolality 302.1 Calcium 8.3 L Magnesium 2.4 Total Bilirubin 0.90 Direct Bilirubin 0.1 Indirect Bilirubin 0.8 AST 29 ALT 67 H Alkaline Phosphatase 29 L Total Creatine Kinase 357 H CK-MB (CK-2) 5.0 H Troponin I 1.510 H D Total Protein 5.6 L Albumin 3.5 Globulin 2.1 L Albumin/Globulin Ratio 1.6 Blood Type Antibody Screen Crossmatch Quality Measures - VTE Contraindication to Pharmacological VTE Prophylaxis: Already on Theraputic Agent , No Prophylaxis Needed Specialty Discharge - Follow Up or Referrals
[2016-11-19] MEDS: SODIUM CHLOR 0.45% KCL 20 MEQ 20 MEQ/1,000 ML BAG IV SCH (08:17)
--- NOTE | 2016-11-19 08:17 | Hospitalist Progress Note ---
<Esha Serra - Last Filed: 11/19/16 08:11> Assessment and Plan (1) Diabetes Status: Chronic Assessment and plan: Will resume home medications as previously ordered; will consider dose adjustment if hyperglycemia continues. Start sliding scale coverage with regular insulin. Will continue to monitor for blood glucose trends and adjust as needed. Current Visit: Yes Qualifiers: Diabetes mellitus type: type 2 Diabetes mellitus complication status: without complication Diabetes mellitus custodial insulin use: with custodial use Qualified Code(s): E11.9 - Type 2 diabetes mellitus without complications ; Z79.4 - group home (current) use of insulin Hospitalist: Subjective Interval history: Seen and examined. Consulted to assist in the medical management for diabetes. Patient has long history of diabetes; dx: in 2000. He reports that diabetes is managed with both oral agents and insulin (Glipizide/Levemir). He has been experiencing elevated blood sugars post-operatively after a recent CABG on 11/17. Exam - Constitutional Vitals: Period Temp Pulse Resp BP Sys/Wong Pulse Ox Last 24 Hr 97.3 F-98.5 F 79-80 16-20 106-137/57-86 92-98 General appearance: no acute distress - Head Head exam: Present: normal inspection, normocephalic, atraumatic. Absent: abrasion, contusion - Eye Eye exam: Present: EOMI. Absent: conjunctival injection, periorbital swelling, scleral icterus Pupils: Present: ELBA, normal accommodation - ENT ENT exam: Present: normal exam - Neck Neck exam: Present: normal inspection. Absent: lymphadenopathy, meningismus, tenderness, thyromegaly - Respiratory Respiratory exam: Present: decreased breath sounds. Absent: rales, rhonchi, stridor - Cardiovascular Cardiovascular exam: Present: regular rate and rhythm. Absent: carotid bruit, diastolic murmur, gallop, JVD, rubs, systolic murmur - GI/Abdominal GI/Abdominal exam: Present: normal bowel sounds, soft - Extremities Exam Extremities exam: Present: normal inspection, full ROM - Back Exam Back exam: Present: normal inspection - Neurological Exam Neurological exam: Present: alert, oriented X3, normal gait, CN II-XII intact - Psychiatric Psychiatric exam: Present: normal affect, normal mood - Skin Skin exam: Present: normal color, warm, dry (Midsternal surgical incision noted ) Results - Labs CBC & BMP: 11/19/16 03:17 11/19/16 03:17 Lab Results: I have reviewed the past 24 hour labs Quality Measures - VTE Contraindication to Pharmacological VTE Prophylaxis: Already on Theraputic Agent , No Prophylaxis Needed Specialty Discharge - Follow Up or Referrals <Igor Peña - Last Filed: 11/19/16 09:34> Assessment and Plan (1) Diabetes Status: Chronic Assessment and plan: We will have to watch glucoses closely. He may not require the full 60 units of Levemir. This note was completed using [employer] voice recognition software. There may be construction contractor errors as a result. Current Visit: Yes Qualifiers: Diabetes mellitus type: type 2 Diabetes mellitus complication status: without complication Diabetes mellitus terminal manager insulin use: with terminal manager use Qualified Code(s): E11.9 - Type 2 diabetes mellitus without complications ; Z79.4 - group home (current) use of insulin Hospitalist: Subjective Interval history: We have been following the patient for type II DM prior to surgery. He had been on 60 units of Levemir at home prior to hospitalization. Glucoses at home are usually less than 200. He is now starting to resume some activity, but oral intake remains poor. Postop glucoses are now greater than 200. Exam - Constitutional Vitals: Period Temp Pulse Resp BP Sys/Wong Pulse Ox Last 24 Hr 97.3 F-98.5 F 79-80 16-20 106-132/57-80 92-98 Results - Labs CBC & BMP: 11/19/16 03:17 03 03:17
--- NOTE | 2016-11-19 08:22 | XRay Report ---
Portable chest Date: 11/19/2016 Clinical history: Shortness of breath Comparison: 11/17/2016 Technique: Portable AP sitting chest Findings: The heart is larger in size with progressive diffuse parenchymal findings and larger pleural effusions. Interval removal of the endotracheal tube and mediastinal chest tubes. Stable right IJ CVP line. No pneumothorax in patient with recent median sternotomy. No acute osseous findings. Impression: Status post median sternotomy with progressive pulmonary edema/atelectasis/infiltration with larger small pleural effusions. No pneumothorax following removal of the endotracheal tube and mediastinal chest tubes. PROCEDURE INTERPRETED AT [facility] DEPARTMENT OF RADIOLOGY Final Report Signed by: Dr. Dulce Maria Molina
[2016-11-19] MEDS: sitaGLIPtin 100 MG TABLET PO SCH (08:54)
[2016-11-19] MEDS: FERROUS SULFATE 325 MG TABLET PO SCH (08:54)
[2016-11-19] MEDS: METOPROLOL SUCCINATE XL 50 MG TABLET PO SCH (08:54)
[2016-11-19] MEDS: LISINOPRIL 20 MG TABLET PO SCH (08:55)
[2016-11-19] MEDS: oxyCODONE/ACETAMINOPHEN 5-325 MG TABLET PO PRN ×2 (08:55→23:06)
[2016-11-19] MEDS: AMIODARONE 200 MG TABLET PO SCH (08:56)
[2016-11-19] MEDS: DOCUSATE SODIUM 100 MG CAPSULE PO SCH (08:56)
[2016-11-19] MEDS: PANTOPRAZOLE 40 MG TABLET PO SCH (08:56)
[2016-11-19] MEDS: CHLORHEXIDINE 0.12% ORAL RINSE 60 ML BOTTLE SWISH/SPIT SCH ×2 (08:56→20:36)
[2016-11-19] MEDS: ASPIRIN EC 325 MG TABLET PO SCH (08:56)
[2016-11-19] MEDS ORDERED: GLUCAGON 1 MG VIAL IM PRN (11:22)
[2016-11-19] MEDS ORDERED: DEXTROSE 50% 25 GM/50 ML VIAL IV PRN (11:22)
[2016-11-19] MEDS: INSULIN REGULAR 100 UNIT/ML SUBCUT SCH ×3 (12:00→20:36)
--- NOTE | 2016-11-19 15:11 | Cardiology Progress Note ---
Michael Alejo Rachel RN, am scribing for, and in the presence of, Misbah Schrader MD 15:10. Assessment and Plan (1) Coronary artery disease Status: Chronic Current Visit: Yes (2) Diabetes Status: Chronic Current Visit: Yes Qualifiers: Diabetes mellitus type: type 2 Diabetes mellitus complication status: without complication Diabetes mellitus senior care insulin use: with senior care use Qualified Code(s): E11.9 - Type 2 diabetes mellitus without complications ; Z79.4 - director long term care (current) use of insulin (3) Dyslipidemia Status: Chronic Current Visit: Yes (4) Hypertension Status: Chronic Current Visit: Yes (5) Ischemic cardiomyopathy Status: Chronic Current Visit: Yes (6) Status post coronary artery bypass graft Status: Acute Current Visit: Yes Cardiology - PN: Subj Interval history: Cardiology note: Patient is status post CABG with LOPEZ graft to LAD vein graft to OM branch. He is postop day #2. He is doing well postoperatively with no complications. Patient was transferred to telemetry yesterday. He continues to be in sinus rhythm with heart rates in the 80s without any overt arrhythmias or ectopy noted. No further atrial fibrillation has been noted on telemetry. This seems to be well controlled with p.o. amiodarone. Patient denies chest pain, heaviness or tightness. He also denies shortness of breath and palpitations. He tells me that he got up to chair yesterday without difficulty. Midsternal chest incision dressing clean dry and intact. Right lower extremity dressing clean dry and intact. Vital signs have been stable. Encouraged patient to continue use of incentive spirometry and get up to chair later today. Review of labs--blood cell count 18.0, H&H 32.6 and 10.7, sodium 142, chloride 106, creatinine 1.6, BUN 40, magnesium 2.4, potassium 4.8 and troponin I 0.510 Impression Postop day 2 two-vessel CABG Preop EF 30% Postop atrial fibrillation converted to sinus with IV amiodarone Hypertension, blood pressure is currently well controlled. Chest x-ray today revealed progressive pulmonary edema/atelectasis/infiltration with larger small pleural effusions. No pneumothorax following removal of ET tube and mediastinal chest tubes. Plan: Continue p.o. amiodarone Continue to monitor patient rhythm on telemetry. Incentive spirometry Encouraged nutrition Cardiology addendum. Chart reviewed patient examined. Date 2 status post two-vessel CABG. Preop EF 30%. Postop atrial fibrillation converted with amiodarone. Today developed marked bradycardia. Amiodarone stopped and now paced O2 sat 95%. Observe rhythm for now. Exam (Progress Note) - Constitutional Vitals: Period Temp Pulse Resp BP Sys/Wong Pulse Ox Last 24 Hr 97.3 F-98.5 F 79-80 16-20 106-132/57-80 92-98 General appearance: no acute distress, over weight - Head Head exam: Present: normal inspection, normocephalic, atraumatic - Neck Neck exam: Present: normal inspection. Absent: lymphadenopathy, tenderness, thyromegaly - Respiratory Respiratory exam: Present: clear to auscultation bilaterally. Absent: accessory muscle use, chest wall tenderness, rales, rhonchi, stridor, wheezes - Cardiovascular Cardiovascular exam: Present: regular rate and rhythm. Absent: gallop, rubs - GI/Abdominal GI/Abdominal exam: Present: normal bowel sounds, soft. Absent: distended, firm , mass, tenderness - Extremities Exam Extremities exam: Present: normal inspection, normal capillary refill, edema ( Trace bilateral lower extremity edema), other (Normal upper and lower external pulses). Absent: calf tenderness - Neurological Exam Neurological exam: Present: alert, oriented X3 - Psychiatric Psychiatric exam: Present: normal affect, normal mood. Absent: agitated, anxious, depressed - Skin Skin exam: Present: normal color, warm, dry, other (Dressing to midsternal chest clean dry and intact. Dressing to right lower extremity clean dry and intact.). Absent: cyanosis, erythema Result/EKG - Labs CBC & BMP: 11/19/16 03:17 11/19/16 03:17 Lab Results: I have reviewed the past 24 hour labs Labs: Laboratory Results - last 24 hr 11/16/16 11/18/16 11/18/16 03:30 15:58 20:03 WBC RBC Hgb Hct MCV MCH MCHC RDW Plt Count MPV Neut % (Auto) Lymph % (Auto) [place] % (Auto) Eos % (Auto) Baso % (Auto) Neut # (Auto) Lymph # (Auto) [place] # (Auto) Eos # (Auto) Baso # (Auto) Immature Gran % Nucleated RBC % Immature Gran # Nucleated RBCs # Sodium Potassium Chloride Carbon Dioxide Anion Gap BUN Creatinine GFR Calculation BUN/Creatinine Ratio Glucose POC Glucose 231 H 284 H Calculated Osmolality Calcium Magnesium Total Bilirubin Direct Bilirubin Indirect Bilirubin AST ALT Alkaline Phosphatase Total Creatine Kinase CK-MB (CK-2) Troponin I Total Protein Albumin Globulin Albumin/Globulin Ratio Blood Type B POSITIVE Antibody Screen Negative Crossmatch See Detail 11/18/16 11/19/16 11/19/16 23:56 03:17 03:17 WBC 18.0 H RBC 3.85 Hgb 10.7 L Hct 32.6 L MCV 84.7 L MCH 28 MCHC 32.8 RDW 13.9 Plt Count 162 MPV 12.3 H Neut % (Auto) 81.7 H Lymph % (Auto) 6.7 L [place] % (Auto) 10.9 Eos % (Auto) 0.0 Baso % (Auto) 0.1 Neut # (Auto) 14.7 H Lymph # (Auto) 1.2 L [place] # (Auto) 2.0 H Eos # (Auto) 0.0 Baso # (Auto) 0.0 Immature Gran % 0.6 Nucleated RBC % 0.0 Immature Gran # 0.11 Nucleated RBCs # 0.00 Sodium 142 Potassium 4.8 Chloride 106 Carbon Dioxide 22 Anion Gap 18.8 H BUN 40 H D Creatinine 1.60 H GFR Calculation 56 BUN/Creatinine Ratio 25.00 H Glucose 287 H POC Glucose 305 H Calculated Osmolality 302.1 Calcium 8.3 L Magnesium 2.4 Total Bilirubin 0.90 Direct Bilirubin 0.1 Indirect Bilirubin 0.8 AST 29 ALT 67 H Alkaline Phosphatase 29 L Total Creatine Kinase 357 H CK-MB (CK-2) 5.0 H Troponin I 1.510 H D Total Protein 5.6 L Albumin 3.5 Globulin 2.1 L Albumin/Globulin Ratio 1.6 Blood Type Antibody Screen Crossmatch 11/19/16 11/19/16 03:51 07:07 WBC RBC Hgb Hct MCV MCH MCHC RDW Plt Count MPV Neut % (Auto) Lymph % (Auto) [place] % (Auto) Eos % (Auto) Baso % (Auto) Neut # (Auto) Lymph # (Auto) [place] # (Auto) Eos # (Auto) Baso # (Auto) Immature Gran % Nucleated RBC % Immature Gran # Nucleated RBCs # Sodium Potassium Chloride Carbon Dioxide Anion Gap BUN Creatinine GFR Calculation BUN/Creatinine Ratio Glucose POC Glucose 285 H 326 H Calculated Osmolality Calcium Magnesium Total Bilirubin Direct Bilirubin Indirect Bilirubin AST ALT Alkaline Phosphatase Total Creatine Kinase CK-MB (CK-2) Troponin I Total Protein Albumin Globulin Albumin/Globulin Ratio Blood Type Antibody Screen Crossmatch Quality Measures - VTE Contraindication to Pharmacological VTE Prophylaxis: Already on Theraputic Agent , No Prophylaxis Needed Specialty Discharge - Follow Up or Referrals Raciel Alejo Thomas, MD, personally performed the services described in this documentation, ascribed by Sona Rodriguez RN in my presence, and it is both accurate and complete 510 .
[2016-11-19] MEDS: MAGNESIUM HYDROXIDE SUSP 30 ML UDCUP PO PRN (18:08)
[2016-11-19] MEDS: INSULIN GLARGINE 100 UNIT/ML SUBCUT SCH (20:37)
[2016-11-20 04:39] LABS: Basophils % 0.1 % (0.0-0.8); Eosinophils % 0.1 % (0.00-10.9); Hematocrit 29.9 VOL% (42.0-52.0); Hemoglobin 9.7 GM/DL (14.0-18.0); Immature Granulocytes % 0.6 %; Immature Granulocytes Absolute 0.09 #; Lymphocytes # 1.6 10*3/uL (1.4-4.0); Lymphocytes % 9.7 % (21.2-54.2); Mean Corpuscular HGB Conc 32.4 GM/DL (32-36); Mean Corpuscular Hemoglobin 28 PG (27-34); Mean Corpuscular Volume 86.4 FL (87-102); Mean Platelet Volume 12.3 FL (9.6-12.0); Monocytes # 2.2 10*3/uL (0.11-0.8); Monocytes % 13.9 % (1.7-12.7); Neutrophils # 12.1 10*3/uL (1.4-7.4); Neutrophils % 75.6 % (38.7-73.9); Platelet Count 151 T/CUMM (130-400); Red Blood Count 3.46 MC/CUMM (3.8-5.5); Red Cell Distribution Width 13.9 % (9.3-17.3)
[2016-11-20 05:22] LABS: Alanine Aminotransferase 47 U/L (16-61); Alkaline Phosphatase 30 U/L (45-117); Aspartate Amino Transferase 16 U/L (0-37); Bilirubin,Direct 0.2 MG/DL (0.0-0.20); Bilirubin,Indirect 0.6 MG/DL (0.0-1.0); Blood Urea Nitrogen 63 MG/DL (7-18); Calcium 7.7 MG/DL (8.5-10.1); Glucose 197 MG/DL (74-106); Magnesium 2.5 MG/DL (1.8-2.4); Osmolality,Calculated 301.4 MOS/KG (273-304); Potassium 4.5 MMOL/L (3.5-5.1); Sodium 140 MMOL/L (136-145); Total Protein 5.5 G/DL (6.4-8.3)
[2016-11-20 05:24] LABS: Troponin I Only 0.716 NG/ML (0.00-0.045)
--- NOTE | 2016-11-20 06:28 | Cardiothoracic Progress Note ---
Cardiothoracic Subjective Interval history: She is awake and alert and sitting up in a chair. He still has considerable chest wall discomfort. He is breathing comfortably and his vital signs have been stable although his blood pressure is on the low side. Also his creatinine has risen to 2.4 and I am going to stop his lisinopril at least temporarily. We will monitor his renal function Exam (Progress Note) - Constitutional Vitals: Period Temp Pulse Resp BP Sys/Wong Pulse Ox Last 24 Hr 97.2 F-98.2 F 79-81 16-20 89-112/50-67 91-99 Result/EKG - Labs CBC & BMP: 11/20/16 03:40 11/20/16 03:40 Labs: Laboratory Results - last 24 hr 11/17/16 11/17/16 11/17/16 17:06 18:04 20:10 WBC RBC Hgb Hct MCV MCH MCHC RDW Plt Count MPV Neut % (Auto) Lymph % (Auto) [place] % (Auto) Eos % (Auto) Baso % (Auto) Neut # (Auto) Lymph # (Auto) [place] # (Auto) Eos # (Auto) Baso # (Auto) Immature Gran % Nucleated RBC % Immature Gran # Nucleated RBCs # Sodium Potassium Chloride Carbon Dioxide Anion Gap BUN Creatinine GFR Calculation BUN/Creatinine Ratio Glucose POC Glucose 140 H 155 H 164 H Calculated Osmolality Calcium Magnesium Total Bilirubin Direct Bilirubin Indirect Bilirubin AST ALT Alkaline Phosphatase Total Creatine Kinase CK-MB (CK-2) Troponin I Total Protein Albumin Globulin Albumin/Globulin Ratio 11/17/16 11/17/16 11/18/16 21:18 23:06 00:09 WBC RBC Hgb Hct MCV MCH MCHC RDW Plt Count MPV Neut % (Auto) Lymph % (Auto) [place] % (Auto) Eos % (Auto) Baso % (Auto) Neut # (Auto) Lymph # (Auto) [place] # (Auto) Eos # (Auto) Baso # (Auto) Immature Gran % Nucleated RBC % Immature Gran # Nucleated RBCs # Sodium Potassium Chloride Carbon Dioxide Anion Gap BUN Creatinine GFR Calculation BUN/Creatinine Ratio Glucose POC Glucose 178 H 167 H 163 H Calculated Osmolality Calcium Magnesium Total Bilirubin Direct Bilirubin Indirect Bilirubin AST ALT Alkaline Phosphatase Total Creatine Kinase CK-MB (CK-2) Troponin I Total Protein Albumin Globulin Albumin/Globulin Ratio 11/18/16 11/18/16 11/18/16 01:15 02:24 03:39 WBC RBC Hgb Hct MCV MCH MCHC RDW Plt Count MPV Neut % (Auto) Lymph % (Auto) [place] % (Auto) Eos % (Auto) Baso % (Auto) Neut # (Auto) Lymph # (Auto) [place] # (Auto) Eos # (Auto) Baso # (Auto) Immature Gran % Nucleated RBC % Immature Gran # Nucleated RBCs # Sodium Potassium Chloride Carbon Dioxide Anion Gap BUN Creatinine GFR Calculation BUN/Creatinine Ratio Glucose POC Glucose 139 H 146 H 152 H Calculated Osmolality Calcium Magnesium Total Bilirubin Direct Bilirubin Indirect Bilirubin AST ALT Alkaline Phosphatase Total Creatine Kinase CK-MB (CK-2) Troponin I Total Protein Albumin Globulin Albumin/Globulin Ratio 11/18/16 11/18/16 11/18/16 05:24 06:16 08:29 WBC RBC Hgb Hct MCV MCH MCHC RDW Plt Count MPV Neut % (Auto) Lymph % (Auto) [place] % (Auto) Eos % (Auto) Baso % (Auto) Neut # (Auto) Lymph # (Auto) [place] # (Auto) Eos # (Auto) Baso # (Auto) Immature Gran % Nucleated RBC % Immature Gran # Nucleated RBCs # Sodium Potassium Chloride Carbon Dioxide Anion Gap BUN Creatinine GFR Calculation BUN/Creatinine Ratio Glucose POC Glucose 145 H 155 H 138 H Calculated Osmolality Calcium Magnesium Total Bilirubin Direct Bilirubin Indirect Bilirubin AST ALT Alkaline Phosphatase Total Creatine Kinase CK-MB (CK-2) Troponin I Total Protein Albumin Globulin Albumin/Globulin Ratio 11/18/16 11/19/16 11/19/16 09:16 07:07 11:18 WBC RBC Hgb Hct MCV MCH MCHC RDW Plt Count MPV Neut % (Auto) Lymph % (Auto) [place] % (Auto) Eos % (Auto) Baso % (Auto) Neut # (Auto) Lymph # (Auto) [place] # (Auto) Eos # (Auto) Baso # (Auto) Immature Gran % Nucleated RBC % Immature Gran # Nucleated RBCs # Sodium Potassium Chloride Carbon Dioxide Anion Gap BUN Creatinine GFR Calculation BUN/Creatinine Ratio Glucose POC Glucose 139 H 326 H 356 H Calculated Osmolality Calcium Magnesium Total Bilirubin Direct Bilirubin Indirect Bilirubin AST ALT Alkaline Phosphatase Total Creatine Kinase CK-MB (CK-2) Troponin I Total Protein Albumin Globulin Albumin/Globulin Ratio 11/19/16 11/19/16 11/20/16 17:40 19:41 03:40 WBC 16.0 H RBC 3.46 L Hgb 9.7 L Hct 29.9 L MCV 86.4 L MCH 28 MCHC 32.4 RDW 13.9 Plt Count 151 MPV 12.3 H Neut % (Auto) 75.6 H Lymph % (Auto) 9.7 L [place] % (Auto) 13.9 H Eos % (Auto) 0.1 Baso % (Auto) 0.1 Neut # (Auto) 12.1 H Lymph # (Auto) 1.6 [place] # (Auto) 2.2 H Eos # (Auto) 0.0 Baso # (Auto) 0.0 Immature Gran % 0.6 Nucleated RBC % 0.0 Immature Gran # 0.09 Nucleated RBCs # 0.00 Sodium Potassium Chloride Carbon Dioxide Anion Gap BUN Creatinine GFR Calculation BUN/Creatinine Ratio Glucose POC Glucose 378 H 335 H Calculated Osmolality Calcium Magnesium Total Bilirubin Direct Bilirubin Indirect Bilirubin AST ALT Alkaline Phosphatase Total Creatine Kinase CK-MB (CK-2) Troponin I Total Protein Albumin Globulin Albumin/Globulin Ratio 11/20/16 03:40 WBC RBC Hgb Hct MCV MCH MCHC RDW Plt Count MPV Neut % (Auto) Lymph % (Auto) [place] % (Auto) Eos % (Auto) Baso % (Auto) Neut # (Auto) Lymph # (Auto) [place] # (Auto) Eos # (Auto) Baso # (Auto) Immature Gran % Nucleated RBC % Immature Gran # Nucleated RBCs # Sodium 140 Potassium 4.5 Chloride 104 Carbon Dioxide 23 Anion Gap 17.5 H BUN 63 H Creatinine 2.40 H GFR Calculation 35 BUN/Creatinine Ratio 26.00 H Glucose 197 H POC Glucose Calculated Osmolality 301.4 Calcium 7.7 L Magnesium 2.5 H Total Bilirubin 0.80 Direct Bilirubin 0.2 Indirect Bilirubin 0.6 AST 16 ALT 47 Alkaline Phosphatase 30 L Total Creatine Kinase 318 H CK-MB (CK-2) 1.4 Troponin I 0.716 H D Total Protein 5.5 L Albumin 3.0 L Globulin 2.5 Albumin/Globulin Ratio 1.2 Quality Measures - VTE Contraindication to Pharmacological VTE Prophylaxis: Already on Theraputic Agent , No Prophylaxis Needed Specialty Discharge - Follow Up or Referrals
--- NOTE | 2016-11-20 08:07 | Cardiology Progress Note ---
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 Patient developed postop atrial fibrillation converted with amiodarone. Then developed marked bradycardia and now pacing. Blood pressure 102/70 Appetite good. Decreased breath sounds but fairly clear. Incision looks good. Lab data today White count 16.0 hemoglobin 9.7 hematocrit 29.9 Sodium 140 potassium 4.5 chloride 104 CO2 23 BUN 63 creatinine 2.40 Impression Status post two-vessel CABG EF 30% Postop atrial fibrillation converted with amiodarone. Marked bradycardia now pacing Renal failure baseline creatinine 1.20 Plan Amiodarone and metoprolol stopped yesterday Lisinopril stopped today Continue pacing and observe Exam (Progress Note) - Constitutional Vitals: Period Temp Pulse Resp BP Sys/Wong Pulse Ox Last 24 Hr 97.2 F-98.2 F 79-81 16-20 89-111/50-67 91-100 Result/EKG - Labs CBC & BMP: 11/20/16 03:40 11/20/16 03:40 Labs: Laboratory Results - last 24 hr 11/17/16 11/17/16 11/17/16 17:06 18:04 20:10 WBC RBC Hgb Hct MCV MCH MCHC RDW Plt Count MPV Neut % (Auto) Lymph % (Auto) [place] % (Auto) Eos % (Auto) Baso % (Auto) Neut # (Auto) Lymph # (Auto) [place] # (Auto) Eos # (Auto) Baso # (Auto) Immature Gran % Nucleated RBC % Immature Gran # Nucleated RBCs # Sodium Potassium Chloride Carbon Dioxide Anion Gap BUN Creatinine GFR Calculation BUN/Creatinine Ratio Glucose POC Glucose 140 H 155 H 164 H Calculated Osmolality Calcium Magnesium Total Bilirubin Direct Bilirubin Indirect Bilirubin AST ALT Alkaline Phosphatase Total Creatine Kinase CK-MB (CK-2) Troponin I Total Protein Albumin Globulin Albumin/Globulin Ratio 11/17/16 11/17/16 11/18/16 21:18 23:06 00:09 WBC RBC Hgb Hct MCV MCH MCHC RDW Plt Count MPV Neut % (Auto) Lymph % (Auto) [place] % (Auto) Eos % (Auto) Baso % (Auto) Neut # (Auto) Lymph # (Auto) [place] # (Auto) Eos # (Auto) Baso # (Auto) Immature Gran % Nucleated RBC % Immature Gran # Nucleated RBCs # Sodium Potassium Chloride Carbon Dioxide Anion Gap BUN Creatinine GFR Calculation BUN/Creatinine Ratio Glucose POC Glucose 178 H 167 H 163 H Calculated Osmolality Calcium Magnesium Total Bilirubin Direct Bilirubin Indirect Bilirubin AST ALT Alkaline Phosphatase Total Creatine Kinase CK-MB (CK-2) Troponin I Total Protein Albumin Globulin Albumin/Globulin Ratio 11/18/16 11/18/16 11/18/16 01:15 02:24 03:39 WBC RBC Hgb Hct MCV MCH MCHC RDW Plt Count MPV Neut % (Auto) Lymph % (Auto) [place] % (Auto) Eos % (Auto) Baso % (Auto) Neut # (Auto) Lymph # (Auto) [place] # (Auto) Eos # (Auto) Baso # (Auto) Immature Gran % Nucleated RBC % Immature Gran # Nucleated RBCs # Sodium Potassium Chloride Carbon Dioxide Anion Gap BUN Creatinine GFR Calculation BUN/Creatinine Ratio Glucose POC Glucose 139 H 146 H 152 H Calculated Osmolality Calcium Magnesium Total Bilirubin Direct Bilirubin Indirect Bilirubin AST ALT Alkaline Phosphatase Total Creatine Kinase CK-MB (CK-2) Troponin I Total Protein Albumin Globulin Albumin/Globulin Ratio 11/18/16 11/18/16 11/18/16 05:24 06:16 08:29 WBC RBC Hgb Hct MCV MCH MCHC RDW Plt Count MPV Neut % (Auto) Lymph % (Auto) [place] % (Auto) Eos % (Auto) Baso % (Auto) Neut # (Auto) Lymph # (Auto) [place] # (Auto) Eos # (Auto) Baso # (Auto) Immature Gran % Nucleated RBC % Immature Gran # Nucleated RBCs # Sodium Potassium Chloride Carbon Dioxide Anion Gap BUN Creatinine GFR Calculation BUN/Creatinine Ratio Glucose POC Glucose 145 H 155 H 138 H Calculated Osmolality Calcium Magnesium Total Bilirubin Direct Bilirubin Indirect Bilirubin AST ALT Alkaline Phosphatase Total Creatine Kinase CK-MB (CK-2) Troponin I Total Protein Albumin Globulin Albumin/Globulin Ratio 11/18/16 11/19/16 11/19/16 09:16 11:18 17:40 WBC RBC Hgb Hct MCV MCH MCHC RDW Plt Count MPV Neut % (Auto) Lymph % (Auto) [place] % (Auto) Eos % (Auto) Baso % (Auto) Neut # (Auto) Lymph # (Auto) [place] # (Auto) Eos # (Auto) Baso # (Auto) Immature Gran % Nucleated RBC % Immature Gran # Nucleated RBCs # Sodium Potassium Chloride Carbon Dioxide Anion Gap BUN Creatinine GFR Calculation BUN/Creatinine Ratio Glucose POC Glucose 139 H 356 H 378 H Calculated Osmolality Calcium Magnesium Total Bilirubin Direct Bilirubin Indirect Bilirubin AST ALT Alkaline Phosphatase Total Creatine Kinase CK-MB (CK-2) Troponin I Total Protein Albumin Globulin Albumin/Globulin Ratio 11/19/16 11/20/16 11/20/16 19:41 03:40 03:40 WBC 16.0 H RBC 3.46 L Hgb 9.7 L Hct 29.9 L MCV 86.4 L MCH 28 MCHC 32.4 RDW 13.9 Plt Count 151 MPV 12.3 H Neut % (Auto) 75.6 H Lymph % (Auto) 9.7 L [place] % (Auto) 13.9 H Eos % (Auto) 0.1 Baso % (Auto) 0.1 Neut # (Auto) 12.1 H Lymph # (Auto) 1.6 [place] # (Auto) 2.2 H Eos # (Auto) 0.0 Baso # (Auto) 0.0 Immature Gran % 0.6 Nucleated RBC % 0.0 Immature Gran # 0.09 Nucleated RBCs # 0.00 Sodium 140 Potassium 4.5 Chloride 104 Carbon Dioxide 23 Anion Gap 17.5 H BUN 63 H Creatinine 2.40 H GFR Calculation 35 BUN/Creatinine Ratio 26.00 H Glucose 197 H POC Glucose 335 H Calculated Osmolality 301.4 Calcium 7.7 L Magnesium 2.5 H Total Bilirubin 0.80 Direct Bilirubin 0.2 Indirect Bilirubin 0.6 AST 16 ALT 47 Alkaline Phosphatase 30 L Total Creatine Kinase 318 H CK-MB (CK-2) 1.4 Troponin I 0.716 H D Total Protein 5.5 L Albumin 3.0 L Globulin 2.5 Albumin/Globulin Ratio 1.2 11/20/16 07:31 WBC RBC Hgb Hct MCV MCH MCHC RDW Plt Count MPV Neut % (Auto) Lymph % (Auto) [place] % (Auto) Eos % (Auto) Baso % (Auto) Neut # (Auto) Lymph # (Auto) [place] # (Auto) Eos # (Auto) Baso # (Auto) Immature Gran % Nucleated RBC % Immature Gran # Nucleated RBCs # Sodium Potassium Chloride Carbon Dioxide Anion Gap BUN Creatinine GFR Calculation BUN/Creatinine Ratio Glucose POC Glucose 264 H Calculated Osmolality Calcium Magnesium Total Bilirubin Direct Bilirubin Indirect Bilirubin AST ALT Alkaline Phosphatase Total Creatine Kinase CK-MB (CK-2) Troponin I Total Protein Albumin Globulin Albumin/Globulin Ratio Quality Measures - VTE Contraindication to Pharmacological VTE Prophylaxis: Already on Theraputic Agent , No Prophylaxis Needed Specialty Discharge - Follow Up or Referrals
--- NOTE | 2016-11-20 08:33 | XRay Report ---
Portable chest Date: 11/20/2016 Clinical history: Shortness of breath Comparison: 11/19/2016 Technique: Portable AP sitting chest Findings: Stable cardiomegaly and right IJ CVP line. Prior median sternotomy with residual diffuse parenchymal findings especially at the lung bases with stable pleural effusions. Stable mediastinum and osseous structures. Impression: No significant change in the appearance of the chest when compared to previous exam. PROCEDURE INTERPRETED AT [facility] DEPARTMENT OF RADIOLOGY Final Report Signed by: Dr. Dulce Maria Molina
[2016-11-20] MEDS: DOCUSATE SODIUM 100 MG CAPSULE PO SCH (09:28)
[2016-11-20] MEDS: sitaGLIPtin 100 MG TABLET PO SCH (09:28)
[2016-11-20] MEDS: FERROUS SULFATE 325 MG TABLET PO SCH (09:28)
[2016-11-20] MEDS: PANTOPRAZOLE 40 MG TABLET PO SCH (09:28)
[2016-11-20] MEDS: ASPIRIN EC 325 MG TABLET PO SCH (09:29)
[2016-11-20] MEDS: INSULIN REGULAR 100 UNIT/ML SUBCUT SCH ×4 (09:29→20:53)
[2016-11-20] MEDS: CHLORHEXIDINE 0.12% ORAL RINSE 60 ML BOTTLE SWISH/SPIT SCH ×2 (09:30→20:52)
--- NOTE | 2016-11-20 09:39 | Hospitalist Progress Note ---
Assessment and Plan (1) Diabetes Status: Chronic Assessment and plan: Impression: 1. Type II DM 2. Acute renal failure Recommendations: Monitor glucoses for another 24 hours prior to further insulin titration. We just started his Levemir yesterday. This note was completed using [employer] voice recognition software. There may be hog ringer errors as a result. 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 We started his basal insulin last night, although at a lower dose. He has developed what appears to be acute renal failure. Watch his glucoses for another day before titrating insulin further. Exam - Constitutional Vitals: Period Temp Pulse Resp BP Sys/Wong Pulse Ox Last 24 Hr 97.2 F-98.2 F 79-81 16-20 89-111/50-67 91-100 He is afebrile. Heart is regular and paced. There is a soft systolic murmur. Chest is clear. Results - Labs CBC & BMP: 11/20/16 03:40 11/20/16 03:40 Lab Results: I have reviewed the past 24 hour labs (Creatinine is trending up.) Quality Measures - VTE Contraindication to Pharmacological VTE Prophylaxis: Already on Theraputic Agent , No Prophylaxis Needed Specialty Discharge - Follow Up or Referrals
[2016-11-20] MEDS: MAGNESIUM HYDROXIDE SUSP 30 ML UDCUP PO PRN (20:52)
[2016-11-20] MEDS: INSULIN GLARGINE 100 UNIT/ML SUBCUT SCH (20:53)
--- NOTE | 2016-11-21 06:36 | Cardiothoracic Progress Note ---
Cardiothoracic Subjective Interval history: Patient feels some better today. He has less chest wall soreness. Exam (Progress Note) - Constitutional Vitals: Period Temp Pulse Resp BP Sys/Wong Pulse Ox Last 24 Hr 97.3 F-98.9 F 20-96 16-20 92-126/55-64 96-100 Result/EKG - Labs CBC & BMP: 11/20/16 03:40 11/20/16 03:40 Labs: Laboratory Results - last 24 hr 11/20/16 11/20/16 11/20/16 07:31 11:18 15:30 POC Glucose 264 H 197 H 308 H 11/20/16 19:58 POC Glucose 348 H Quality Measures - VTE Contraindication to Pharmacological VTE Prophylaxis: Already on Theraputic Agent , No Prophylaxis Needed Specialty Discharge - Follow Up or Referrals
[2016-11-21 07:35] LABS: Calcium 7.8 MG/DL (8.5-10.1); Osmolality,Calculated 299.7 MOS/KG (273-304); Potassium 4.4 MMOL/L (3.5-5.1)
[2016-11-21] MEDS: INSULIN REGULAR 100 UNIT/ML SUBCUT SCH ×4 (08:31→20:45)
[2016-11-21] MEDS: PANTOPRAZOLE 40 MG TABLET PO SCH (08:32)
[2016-11-21] MEDS: sitaGLIPtin 100 MG TABLET PO SCH (08:32)
[2016-11-21] MEDS: CHLORHEXIDINE 0.12% ORAL RINSE 60 ML BOTTLE SWISH/SPIT SCH ×2 (08:32→20:45)
[2016-11-21] MEDS: ASPIRIN EC 325 MG TABLET PO SCH (08:32)
[2016-11-21] MEDS: FERROUS SULFATE 325 MG TABLET PO SCH (08:32)
[2016-11-21] MEDS: DOCUSATE SODIUM 100 MG CAPSULE PO SCH (08:32)
--- NOTE | 2016-11-21 10:16 | Cardiology Progress Note ---
Michael Alejo Rachel, LANDON, am scribing for, and in the presence of, Misbah Schrader MD 10:15. 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 Preop ejection fraction was noted to be 30%. Patient developed postop atrial fibrillation and converted with amiodarone. He then developed bradycardia and is currently pacing at 80 bpm. Patient was seen on telemetry. He is currently sitting up in chair in no acute distress. Currently requiring oxygen at 2 L. Pacer wires still intact and currently being paced at 80 bpm. Patient did well overnight and is without any new complaints this morning. He reports that his chest soreness is getting better. Midsternal chest and right lower extremity incision is healing well without any signs of infection. Patient tells me that he was instructed per Dr. Andrade to ambulate in the ball today. Vital signs are stable. We will continue to monitor on telemetry. Review of labs--potassium 4.4, creatinine 1.8 with BUN of 66, and calcium 7.8. Impression Status post two-vessel CABG EF 30% Postop atrial fibrillation converted with amiodarone. Marked bradycardia now pacing Renal failure baseline creatinine 1.20, creatinine today 1.8. Plan Amiodarone and metoprolol were discontinued November 19. Lisinopril stopped 11/20 Continue pacing and closely monitor on telemetry Ambulate in hallway today Continue incentive spirometry Cardiology addendum. Postop day #4 two-vessel CABG with preop EF 30% Postop atrial fibrillation converted with amiodarone Bradycardia now receiving ventricular pacing Regular rhythm no murmur Incision looks good a little tender but no step-off Decreased breath sounds but clear Creatinine today is down to 1.8 BUN 66. We will continue to monitor and recheck BMP in a.m. Exam (Progress Note) - Constitutional Vitals: Period Temp Pulse Resp BP Sys/Wong Pulse Ox Last 24 Hr 97.3 F-98.9 F 20-96 16-20 101-126/55-64 96-98 General appearance: no acute distress, over weight - Head Head exam: Present: normal inspection, normocephalic, atraumatic - Respiratory Respiratory exam: Present: decreased breath sounds. Absent: accessory muscle use, rales, rhonchi, stridor, wheezes - Cardiovascular Cardiovascular exam: Present: regular rate and rhythm. Absent: bradycardia, tachycardia - GI/Abdominal GI/Abdominal exam: Present: normal bowel sounds, soft. Absent: distended, firm , mass, tenderness - Extremities Exam Extremities exam: Present: normal inspection, normal capillary refill, edema ( Trace edema to lower extremities), other (Right lower extremity incision healing well without signs of infection) - Neurological Exam Neurological exam: Present: alert, oriented X3 - Skin Skin exam: Present: normal color, warm, dry, other (Midsternal chest incision healing well without signs of infection). Absent: cyanosis, erythema Result/EKG - Labs CBC & BMP: 11/20/16 03:40 11/21/16 06:44 Lab Results: I have reviewed the past 24 hour labs Labs: Laboratory Results - last 24 hr 11/20/16 11/20/16 11/20/16 11:18 15:30 19:58 Sodium Potassium Chloride Carbon Dioxide Anion Gap BUN Creatinine GFR Calculation BUN/Creatinine Ratio Glucose POC Glucose 197 H 308 H 348 H Calculated Osmolality Calcium 11/21/16 11/21/16 06:44 07:27 Sodium 138 Potassium 4.4 Chloride 104 Carbon Dioxide 25 Anion Gap 13.4 BUN 66 H Creatinine 1.80 H GFR Calculation 49 BUN/Creatinine Ratio 36.00 H Glucose 213 H POC Glucose 215 H Calculated Osmolality 299.7 Calcium 7.8 L Quality Measures - VTE Contraindication to Pharmacological VTE Prophylaxis: Already on Theraputic Agent , No Prophylaxis Needed Specialty Discharge - Follow Up or Referrals I, Misbah Schrader MD, personally performed the services described in this documentation, ascribed by Sona Rodriguez RN in my presence, and it is both accurate and complete .
--- NOTE | 2016-11-21 15:16 | Hospitalist Progress Note ---
Assessment and Plan - Time spent with patient Time spent with patient: Less than 30 minutes (1) Coronary artery disease Status: Chronic Current Visit: Yes (2) Hypertension Status: Chronic Current Visit: Yes (3) Dyslipidemia Status: Chronic Current Visit: Yes (4) Diabetes Status: Chronic Current Visit: Yes Qualifiers: Diabetes mellitus type: type 2 Diabetes mellitus complication status: without complication Diabetes mellitus jail insulin use: with jail use Qualified Code(s): E11.9 - Type 2 diabetes mellitus without complications ; Z79.4 - alf (current) use of insulin (5) Ischemic cardiomyopathy Status: Chronic Assessment and plan: He is on basal insuln Lantus 30units HS and still uncontrolled, what he needs now is a premeal insulin to control in post prandial blood glucose rise. We will start on 10unit TID 15min before meals and monitor FSG. Continue his sliding scale insulin. Current Visit: Yes Hospitalist: Subjective Interval history: FOllowing for diabetes I reviewed her FSG, still suboptimal on current regimen. Target FSG for him should be less 200mg/dl. Exam - Constitutional Vitals: Period Temp Pulse Resp BP Sys/Wong Pulse Ox Last 24 Hr 98.0 F-98.9 F 20-96 16-20 101-126/59-64 97-98 Results - Labs CBC & BMP: 11/20/16 03:40 11/21/16 06:44 Lab Results: I have reviewed the past 24 hour labs Quality Measures - VTE Contraindication to Pharmacological VTE Prophylaxis: Already on Theraputic Agent , No Prophylaxis Needed Specialty Discharge - Follow Up or Referrals
[2016-11-21] MEDS: INSULIN LISPRO 100 UNIT/ML SUBCUT SCH (16:23)
[2016-11-21] MEDS: INSULIN GLARGINE 100 UNIT/ML SUBCUT SCH (20:45)
[2016-11-22 04:17] LABS: Basophils % 0.1 % (0.0-0.8); Eosinophils # 0.2 10*3/uL (0.0-0.87); Eosinophils % 2.2 % (0.00-10.9); Hematocrit 30.5 VOL% (42.0-52.0); Immature Granulocytes % 0.7 %; Immature Granulocytes Absolute 0.07 #; Lymphocytes # 1.3 10*3/uL (1.4-4.0); Lymphocytes % 13.4 % (21.2-54.2); Mean Corpuscular HGB Conc 32.8 GM/DL (32-36); Mean Corpuscular Hemoglobin 28 PG (27-34); Mean Corpuscular Volume 85.4 FL (87-102); Mean Platelet Volume 10.8 FL (9.6-12.0); Monocytes # 1.5 10*3/uL (0.11-0.8); Monocytes % 14.7 % (1.7-12.7); Neutrophils # 6.8 10*3/uL (1.4-7.4); Neutrophils % 68.9 % (38.7-73.9); Platelet Count 224 T/CUMM (130-400); Red Blood Count 3.57 MC/CUMM (3.8-5.5); Red Cell Distribution Width 13.3 % (9.3-17.3); White Blood Count 9.9 T/CUMM (4-12)
[2016-11-22 04:29] LABS: Alanine Aminotransferase 58 U/L (16-61); Albumin 2.9 G/DL (3.4-5.0); Alkaline Phosphatase 57 U/L (45-117); Aspartate Amino Transferase 39 U/L (0-37); Bilirubin,Direct 0.2 MG/DL (0.0-0.20); Bilirubin,Indirect 1.3 MG/DL (0.0-1.0); Blood Urea Nitrogen 55 MG/DL (7-18); Glucose 186 MG/DL (74-106); Magnesium 2.9 MG/DL (1.8-2.4); Osmolality,Calculated 300.3 MOS/KG (273-304); Potassium 4.5 MMOL/L (3.5-5.1); Sodium 141 MMOL/L (136-145); Total Protein 5.7 G/DL (6.4-8.3)
[2016-11-22 04:44] LABS: Troponin I Only 0.288 NG/ML (0.00-0.045)
--- NOTE | 2016-11-22 08:47 | Cardiothoracic Progress Note ---
Cardiothoracic Subjective Interval history: Some looks and feels okay. Vital signs are stable and he is breathing comfortably. I encouraged him to increase his activity. But otherwise we will just continue with routine postoperative protocol Exam (Progress Note) - Constitutional Vitals: Period Temp Pulse Resp BP Sys/Wong Pulse Ox Last 24 Hr 97.5 F-99.1 F 72-80 16-20 111-169/62-73 94-98 Result/EKG - Labs CBC & BMP: 11/22/16 03:05 11/22/16 03:05 Labs: Laboratory Results - last 24 hr 11/21/16 11/21/16 11/21/16 11:14 16:02 20:25 WBC RBC Hgb Hct MCV MCH MCHC RDW Plt Count MPV Neut % (Auto) Lymph % (Auto) [place] % (Auto) Eos % (Auto) Baso % (Auto) Neut # (Auto) Lymph # (Auto) [place] # (Auto) Eos # (Auto) Baso # (Auto) Immature Gran % Nucleated RBC % Immature Gran # Nucleated RBCs # Sodium Potassium Chloride Carbon Dioxide Anion Gap BUN Creatinine GFR Calculation BUN/Creatinine Ratio Glucose POC Glucose 313 H 216 H 255 H Calculated Osmolality Calcium Magnesium Total Bilirubin Direct Bilirubin Indirect Bilirubin AST ALT Alkaline Phosphatase Total Creatine Kinase CK-MB (CK-2) Troponin I Total Protein Albumin Globulin Albumin/Globulin Ratio 11/22/16 11/22/16 11/22/16 03:05 03:05 07:03 WBC 9.9 D RBC 3.57 L Hgb 10.0 L Hct 30.5 L MCV 85.4 L MCH 28 MCHC 32.8 RDW 13.3 Plt Count 224 D MPV 10.8 Neut % (Auto) 68.9 Lymph % (Auto) 13.4 L [place] % (Auto) 14.7 H Eos % (Auto) 2.2 Baso % (Auto) 0.1 Neut # (Auto) 6.8 Lymph # (Auto) 1.3 L [place] # (Auto) 1.5 H Eos # (Auto) 0.2 Baso # (Auto) 0.0 Immature Gran % 0.7 Nucleated RBC % 0.0 Immature Gran # 0.07 Nucleated RBCs # 0.00 Sodium 141 Potassium 4.5 Chloride 105 Carbon Dioxide 26 Anion Gap 14.5 BUN 55 H D Creatinine 1.50 H GFR Calculation 61 BUN/Creatinine Ratio 36.00 H Glucose 186 H POC Glucose 203 H Calculated Osmolality 300.3 Calcium 8.0 L Magnesium 2.9 H Total Bilirubin 1.50 H Direct Bilirubin 0.2 Indirect Bilirubin 1.3 H AST 39 H ALT 58 Alkaline Phosphatase 57 Total Creatine Kinase 111 D CK-MB (CK-2) < 1.0 Troponin I 0.288 H D Total Protein 5.7 L Albumin 2.9 L Globulin 2.8 Albumin/Globulin Ratio 1.0 L Quality Measures - VTE Contraindication to Pharmacological VTE Prophylaxis: Already on Theraputic Agent , No Prophylaxis Needed Specialty Discharge - Follow Up or Referrals
[2016-11-22] MEDS: INSULIN REGULAR 100 UNIT/ML SUBCUT SCH ×4 (08:56→21:58)
[2016-11-22] MEDS: FERROUS SULFATE 325 MG TABLET PO SCH (08:57)
[2016-11-22] MEDS: ASPIRIN EC 325 MG TABLET PO SCH (08:57)
[2016-11-22] MEDS: CHLORHEXIDINE 0.12% ORAL RINSE 60 ML BOTTLE SWISH/SPIT SCH ×2 (08:57→22:00)
[2016-11-22] MEDS: DOCUSATE SODIUM 100 MG CAPSULE PO SCH (08:57)
[2016-11-22] MEDS: sitaGLIPtin 100 MG TABLET PO SCH (08:57)
[2016-11-22] MEDS: PANTOPRAZOLE 40 MG TABLET PO SCH (08:57)
[2016-11-22] MEDS: INSULIN LISPRO 100 UNIT/ML SUBCUT SCH ×3 (08:57→17:07)
--- NOTE | 2016-11-22 09:14 | XRay Report ---
XR chest 2V Date: 11/22/2016 4:00 AM History: Shortness of breath Comparison: 11/20/2016 Technique: PA and lateral chest Findings: Stable cardiomegaly with prior median sternotomy. The right IJ CVP line is unchanged in position. Expiratory chest with reduced parenchymal findings at the lung bases with residual small pleural effusions. No pneumothorax. Degenerative changes are noted. Impression: Limited expiratory chest with recent median sternotomy. Reduced atelectasis/edema with residual small pleural effusions. PROCEDURE INTERPRETED AT [facility] DEPARTMENT OF RADIOLOGY Final Report Signed by: Dr. Dulce Maria Molina
--- NOTE | 2016-11-22 09:58 | Cardiology Progress Note ---
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 (3) Dyslipidemia Status: Chronic Current Visit: Yes (4) Hypertension Status: Chronic Current Visit: Yes (5) Ischemic cardiomyopathy Status: Chronic Current Visit: Yes (6) Status post coronary artery bypass graft Status: Acute Current Visit: Yes (7) Bradycardia Status: Acute Current Visit: Yes (8) Creatinine elevation Status: Acute Current Visit: Yes (9) Atrial fibrillation Status: Resolved Current Visit: Yes Cardiology - PN: Subj Interval history: Cardiology note Postop day #5 two-vessel CABG with preop EF 30% Postop atrial fib converted with amiodarone Developed marked bradycardia and required pacing With pacer turned off today, rhythm is sinus in the 70s Good appetite. Decreased breath sounds few rhonchi in the left base Regular rhythm no murmur or gallop Incision looks good Lab data today White count 9.9 Hemoglobin 10.0 hematocrit 30.5 Sodium 141 potassium 4.5 chloride 105 CO2 26 BUN 61 creatinine down to 1.50 Glucose 186 Impression Status post two-vessel CABG Preop EF 30% Postop atrial fibrillation converted with amiodarone Marked bradycardia requiring pacing Plan Pacer turned down to rate of 50 and will observe. Encourage spirometry Increase activity Exam (Progress Note) - Constitutional Vitals: Period Temp Pulse Resp BP Sys/Wong Pulse Ox Last 24 Hr 97.5 F-99.1 F 72-80 16-20 111-169/62-73 94-98 Result/EKG - Labs CBC & BMP: 11/22/16 03:05 11/22/16 03:05 Labs: Laboratory Results - last 24 hr 11/21/16 11/21/16 11/21/16 11:14 16:02 20:25 WBC RBC Hgb Hct MCV MCH MCHC RDW Plt Count MPV Neut % (Auto) Lymph % (Auto) [place] % (Auto) Eos % (Auto) Baso % (Auto) Neut # (Auto) Lymph # (Auto) [place] # (Auto) Eos # (Auto) Baso # (Auto) Immature Gran % Nucleated RBC % Immature Gran # Nucleated RBCs # Sodium Potassium Chloride Carbon Dioxide Anion Gap BUN Creatinine GFR Calculation BUN/Creatinine Ratio Glucose POC Glucose 313 H 216 H 255 H Calculated Osmolality Calcium Magnesium Total Bilirubin Direct Bilirubin Indirect Bilirubin AST ALT Alkaline Phosphatase Total Creatine Kinase CK-MB (CK-2) Troponin I Total Protein Albumin Globulin Albumin/Globulin Ratio 11/22/16 11/22/16 11/22/16 03:05 03:05 07:03 WBC 9.9 D RBC 3.57 L Hgb 10.0 L Hct 30.5 L MCV 85.4 L MCH 28 MCHC 32.8 RDW 13.3 Plt Count 224 D MPV 10.8 Neut % (Auto) 68.9 Lymph % (Auto) 13.4 L [place] % (Auto) 14.7 H Eos % (Auto) 2.2 Baso % (Auto) 0.1 Neut # (Auto) 6.8 Lymph # (Auto) 1.3 L [place] # (Auto) 1.5 H Eos # (Auto) 0.2 Baso # (Auto) 0.0 Immature Gran % 0.7 Nucleated RBC % 0.0 Immature Gran # 0.07 Nucleated RBCs # 0.00 Sodium 141 Potassium 4.5 Chloride 105 Carbon Dioxide 26 Anion Gap 14.5 BUN 55 H D Creatinine 1.50 H GFR Calculation 61 BUN/Creatinine Ratio 36.00 H Glucose 186 H POC Glucose 203 H Calculated Osmolality 300.3 Calcium 8.0 L Magnesium 2.9 H Total Bilirubin 1.50 H Direct Bilirubin 0.2 Indirect Bilirubin 1.3 H AST 39 H ALT 58 Alkaline Phosphatase 57 Total Creatine Kinase 111 D CK-MB (CK-2) < 1.0 Troponin I 0.288 H D Total Protein 5.7 L Albumin 2.9 L Globulin 2.8 Albumin/Globulin Ratio 1.0 L Quality Measures - VTE Contraindication to Pharmacological VTE Prophylaxis: Already on Theraputic Agent , No Prophylaxis Needed Specialty Discharge - Follow Up or Referrals
[2016-11-22] MEDS: oxyCODONE/ACETAMINOPHEN 5-325 MG TABLET PO PRN (12:31)
[2016-11-22] MEDS ORDERED: DILTIAZEM 50 MG/10 ML VIAL IV ONE ×2 (13:03→13:38)
--- NOTE | 2016-11-22 13:05 | Hospitalist Progress Note ---
Assessment and Plan - Time spent with patient Time spent with patient: Less than 30 minutes (1) Coronary artery disease Status: Chronic Current Visit: Yes (2) Hypertension Status: Chronic Current Visit: Yes (3) Dyslipidemia Status: Chronic Current Visit: Yes (4) Diabetes Status: Chronic Current Visit: Yes Qualifiers: Diabetes mellitus type: type 2 Diabetes mellitus complication status: without complication Diabetes mellitus custodial insulin use: with custodial use Qualified Code(s): E11.9 - Type 2 diabetes mellitus without complications ; Z79.4 - alf (current) use of insulin (5) Ischemic cardiomyopathy Status: Chronic Assessment and plan: We will increase his basal insuln Lantus to 36 units HS and premeal insulin to increase lispro to 12 TIDAC. May continue with his Januvia at current dose and Monitor FSG. Other medical problems per his primary team We will be following Current Visit: Yes Hospitalist: Subjective Interval history: Following for management of diabetes Started on meal time insulin yesterday and FSG is suboptimal but looks better today. We will adjust her insulin and monitor Exam - Constitutional Vitals: Period Temp Pulse Resp BP Sys/Wong Pulse Ox Last 24 Hr 97.1 F-99.1 F 62-80 16-20 111-169/63-74 94-98 Results - Labs CBC & BMP: 11/22/16 03:05 11/22/16 03:05 Lab Results: I have reviewed the past 24 hour labs Quality Measures - VTE Contraindication to Pharmacological VTE Prophylaxis: Already on Theraputic Agent , No Prophylaxis Needed Specialty Discharge - Follow Up or Referrals
--- NOTE | 2016-11-22 13:05 | Event Note ---
Called by nurse to discuss patient's atrial fibrillation with RVR, heart rate 150 -170s. Discussed with Dr. Hendricks. Patient still has epicardial pacer wires. Will restart IV Amiodorone and low dose IV Cardizem for rate/rhythm control.
[2016-11-22] MEDS ORDERED: AMIODARONE INJ 450 MG in DEXTROSE 5% 241 ML IV SCH (13:30)
[2016-11-22] MEDS ORDERED: AMIODARONE 450 MG/9 ML VIAL IV ONE (13:39)
[2016-11-22] MEDS: INSULIN GLARGINE 100 UNIT/ML SUBCUT SCH (21:59)
[2016-11-23] MEDS: AMIODARONE INJ 450 MG in DEXTROSE 5% 241 ML IV SCH ×2 (03:12→10:08)
[2016-11-23 07:37] LABS: Basophils % 0.1 % (0.0-0.8); Eosinophils # 0.3 10*3/uL (0.0-0.87); Eosinophils % 2.9 % (0.00-10.9); Hematocrit 30.3 VOL% (42.0-52.0); Hemoglobin 9.8 GM/DL (14.0-18.0); Immature Granulocytes % 0.6 %; Immature Granulocytes Absolute 0.06 #; Lymphocytes # 1.5 10*3/uL (1.4-4.0); Lymphocytes % 14.7 % (21.2-54.2); Mean Corpuscular HGB Conc 32.3 GM/DL (32-36); Mean Corpuscular Hemoglobin 28 PG (27-34); Mean Corpuscular Volume 86.1 FL (87-102); Mean Platelet Volume 11.5 FL (9.6-12.0); Monocytes # 1.6 10*3/uL (0.11-0.8); Monocytes % 15.9 % (1.7-12.7); Neutrophils # 6.8 10*3/uL (1.4-7.4); Neutrophils % 65.8 % (38.7-73.9); Platelet Count 264 T/CUMM (130-400); Red Blood Count 3.52 MC/CUMM (3.8-5.5); Red Cell Distribution Width 13.6 % (9.3-17.3); White Blood Count 10.3 T/CUMM (4-12)
--- NOTE | 2016-11-23 07:46 | EKG Report ---
Stationary ECG Study 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
[2016-11-23 07:54] LABS: Alanine Aminotransferase 58 U/L (16-61); Albumin 2.5 G/DL (3.4-5.0); Alkaline Phosphatase 55 U/L (45-117); Aspartate Amino Transferase 25 U/L (0-37); Bilirubin,Direct 0.1 MG/DL (0.0-0.20); Bilirubin,Indirect 0.3 MG/DL (0.0-1.0); Blood Urea Nitrogen 44 MG/DL (7-18); Calcium 7.4 MG/DL (8.5-10.1); Glucose 187 MG/DL (74-106); Osmolality,Calculated 298.1 MOS/KG (273-304); Potassium 4.6 MMOL/L (3.5-5.1); Sodium 142 MMOL/L (136-145); Total Protein 5.4 G/DL (6.4-8.3)
[2016-11-23 07:55] LABS: Troponin I Only 0.162 NG/ML (0.00-0.045)
[2016-11-23 08:05] LABS: Eosinophils 1 % (0-10); Lymphocytes 11 % (20-55); Segmented Neutrophils 74 % (50-85); Total Cells Counted 100
[2016-11-23 08:06] LABS: Elliptocytes Few; Hypochromasia 1+; Ovalocytes Slight; Platelet Estimate Adequate
--- NOTE | 2016-11-23 08:20 | XRay Report ---
XR chest 2V Date: 11/23/2016 4:00 AM History: Shortness of breath Comparison: 11/22/2016 Technique: PA and lateral chest Findings: Stable cardiomegaly in patient with prior median sternotomy. The right IJ CP line is unchanged in standard position. Persistent dense pleural and parenchymal findings at the lung bases, especially the left. Stable mediastinum and osseous structures. Impression: Limited expiratory chest with no significant change in the appearance of the chest when compared to previous exam. PROCEDURE INTERPRETED AT [facility] DEPARTMENT OF RADIOLOGY Final Report Signed by: Dr. Dulce Maria Molina
--- NOTE | 2016-11-23 08:23 | Cardiothoracic Progress Note ---
Cardiothoracic Subjective Interval history: This and looks and feels okay. He is breathing comfortably and his vital signs are stable. He is off the pacemaker and his heart rate is sinus at about 60. He seems to be tolerating this okay. Exam (Progress Note) - Constitutional Vitals: Period Temp Pulse Resp BP Sys/Wong Pulse Ox Last 24 Hr 97.1 F-98 F 57-136 16-118 123-133/62-74 95-100 Result/EKG - Labs CBC & BMP: 11/23/16 05:40 11/23/16 05:40 Labs: Laboratory Results - last 24 hr 11/22/16 11/22/16 11/22/16 07:03 11:21 15:41 WBC RBC Hgb Hct MCV MCH MCHC RDW Plt Count MPV Neut % (Auto) Lymph % (Auto) [place] % (Auto) Eos % (Auto) Baso % (Auto) Neut # (Auto) Lymph # (Auto) [place] # (Auto) Eos # (Auto) Baso # (Auto) Total Counted Immature Gran % Nucleated RBC % Immature Gran # Segmented Neutrophils Lymphocytes Monocytes Eosinophils Nucleated RBCs # Platelet Estimate Hypochromasia Ovalocytes Elliptocytes Sodium Potassium Chloride Carbon Dioxide Anion Gap BUN Creatinine GFR Calculation BUN/Creatinine Ratio Glucose POC Glucose 203 H 209 H 202 H Calculated Osmolality Calcium Magnesium Total Bilirubin Direct Bilirubin Indirect Bilirubin AST ALT Alkaline Phosphatase Total Creatine Kinase CK-MB (CK-2) Troponin I Total Protein Albumin Globulin Albumin/Globulin Ratio 11/22/16 11/23/16 11/23/16 21:32 05:40 05:40 WBC 10.3 RBC 3.52 L Hgb 9.8 L Hct 30.3 L MCV 86.1 L MCH 28 MCHC 32.3 RDW 13.6 Plt Count 264 MPV 11.5 Neut % (Auto) 65.8 Lymph % (Auto) 14.7 L [place] % (Auto) 15.9 H Eos % (Auto) 2.9 Baso % (Auto) 0.1 Neut # (Auto) 6.8 Lymph # (Auto) 1.5 [place] # (Auto) 1.6 H Eos # (Auto) 0.3 Baso # (Auto) 0.0 Total Counted 100 Immature Gran % 0.6 Nucleated RBC % 0.0 Immature Gran # 0.06 Segmented Neutrophils 74 Lymphocytes 11 L Monocytes 14 Eosinophils 1 Nucleated RBCs # 0.00 Platelet Estimate Adequate Hypochromasia 1+ Ovalocytes Slight Elliptocytes Few Sodium 142 Potassium 4.6 Chloride 107 Carbon Dioxide 24 Anion Gap 15.6 H BUN 44 H Creatinine 1.30 GFR Calculation 71 BUN/Creatinine Ratio 33.00 H Glucose 187 H POC Glucose 241 H Calculated Osmolality 298.1 Calcium 7.4 L Magnesium 3.0 H Total Bilirubin 0.40 Direct Bilirubin 0.1 Indirect Bilirubin 0.3 AST 25 ALT 58 Alkaline Phosphatase 55 Total Creatine Kinase 66 D CK-MB (CK-2) < 1.0 Troponin I 0.162 H D Total Protein 5.4 L Albumin 2.5 L Globulin 2.9 Albumin/Globulin Ratio 0.8 L 11/23/16 07:10 WBC RBC Hgb Hct MCV MCH MCHC RDW Plt Count MPV Neut % (Auto) Lymph % (Auto) [place] % (Auto) Eos % (Auto) Baso % (Auto) Neut # (Auto) Lymph # (Auto) [place] # (Auto) Eos # (Auto) Baso # (Auto) Total Counted Immature Gran % Nucleated RBC % Immature Gran # Segmented Neutrophils Lymphocytes Monocytes Eosinophils Nucleated RBCs # Platelet Estimate Hypochromasia Ovalocytes Elliptocytes Sodium Potassium Chloride Carbon Dioxide Anion Gap BUN Creatinine GFR Calculation BUN/Creatinine Ratio Glucose POC Glucose 249 H Calculated Osmolality Calcium Magnesium Total Bilirubin Direct Bilirubin Indirect Bilirubin AST ALT Alkaline Phosphatase Total Creatine Kinase CK-MB (CK-2) Troponin I Total Protein Albumin Globulin Albumin/Globulin Ratio Quality Measures - VTE Contraindication to Pharmacological VTE Prophylaxis: Already on Theraputic Agent , No Prophylaxis Needed Specialty Discharge - Follow Up or Referrals
[2016-11-23] MEDS: INSULIN LISPRO 100 UNIT/ML SUBCUT SCH ×3 (09:44→17:04)
[2016-11-23] MEDS: FERROUS SULFATE 325 MG TABLET PO SCH (09:44)
[2016-11-23] MEDS: INSULIN REGULAR 100 UNIT/ML SUBCUT SCH ×4 (09:44→21:18)
[2016-11-23] MEDS: DOCUSATE SODIUM 100 MG CAPSULE PO SCH (09:45)
[2016-11-23] MEDS: ASPIRIN EC 325 MG TABLET PO SCH (09:45)
[2016-11-23] MEDS: CHLORHEXIDINE 0.12% ORAL RINSE 60 ML BOTTLE SWISH/SPIT SCH ×2 (09:45→21:19)
[2016-11-23] MEDS: sitaGLIPtin 100 MG TABLET PO SCH (09:45)
[2016-11-23] MEDS: PANTOPRAZOLE 40 MG TABLET PO SCH (09:45)
--- NOTE | 2016-11-23 10:06 | Cardiology Progress Note ---
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 (3) Dyslipidemia Status: Chronic Current Visit: Yes (4) Hypertension Status: Chronic Current Visit: Yes (5) Ischemic cardiomyopathy Status: Chronic Current Visit: Yes (6) Status post coronary artery bypass graft Status: Acute Current Visit: Yes (7) Bradycardia Status: Acute Current Visit: Yes (8) Creatinine elevation Status: Acute Current Visit: Yes (9) Atrial fibrillation Status: Resolved Current Visit: Yes Cardiology - PN: Subj Interval history: Cardiology note Postop day #6 two-vessel CABG Preop EF 30% Patient had recurrent atrial fibrillation yesterday and converted with IV amiodarone Telemetry currently shows sinus rhythm in the 60s without ectopy or pauses O2 sat 100 on 2 L cannula Blood pressure 126/72 Decreased breath sounds few basilar crackles Regular rhythm no gallop or murmur Incision looks good No leg edema Lab data today White count 10.3 hemoglobin 9.8 hematocrit 30.3 Sodium 142 potassium 4.6 chloride 107 CO2 24 BUN 44 creatinine 1.30 Glucose 249 magnesium 3.0 Impression Postop day #6 two-vessel CABG with LOPEZ graft to LAD and vein graft to OM branch. Right coronary is chronically occluded and inferior wall scarred. Preop EF 30% Recurrent postop atrial fibrillation now in sinus Plan Amiodarone 200 mg daily Carvedilol 3.125 mg twice daily Ambulate and monitor Exam (Progress Note) - Constitutional Vitals: Period Temp Pulse Resp BP Sys/Wong Pulse Ox Last 24 Hr 97.1 F-98 F 57-136 16-118 123-140/62-75 97-100 Result/EKG - Labs CBC & BMP: 11/23/16 05:40 11/23/16 05:40 Labs: Laboratory Results - last 24 hr 11/22/16 11/22/16 11/22/16 11:21 15:41 21:32 WBC RBC Hgb Hct MCV MCH MCHC RDW Plt Count MPV Neut % (Auto) Lymph % (Auto) [place] % (Auto) Eos % (Auto) Baso % (Auto) Neut # (Auto) Lymph # (Auto) [place] # (Auto) Eos # (Auto) Baso # (Auto) Total Counted Immature Gran % Nucleated RBC % Immature Gran # Segmented Neutrophils Lymphocytes Monocytes Eosinophils Nucleated RBCs # Platelet Estimate Hypochromasia Ovalocytes Elliptocytes Sodium Potassium Chloride Carbon Dioxide Anion Gap BUN Creatinine GFR Calculation BUN/Creatinine Ratio Glucose POC Glucose 209 H 202 H 241 H Calculated Osmolality Calcium Magnesium Total Bilirubin Direct Bilirubin Indirect Bilirubin AST ALT Alkaline Phosphatase Total Creatine Kinase CK-MB (CK-2) Troponin I Total Protein Albumin Globulin Albumin/Globulin Ratio 11/23/16 11/23/16 11/23/16 05:40 05:40 07:10 WBC 10.3 RBC 3.52 L Hgb 9.8 L Hct 30.3 L MCV 86.1 L MCH 28 MCHC 32.3 RDW 13.6 Plt Count 264 MPV 11.5 Neut % (Auto) 65.8 Lymph % (Auto) 14.7 L [place] % (Auto) 15.9 H Eos % (Auto) 2.9 Baso % (Auto) 0.1 Neut # (Auto) 6.8 Lymph # (Auto) 1.5 [place] # (Auto) 1.6 H Eos # (Auto) 0.3 Baso # (Auto) 0.0 Total Counted 100 Immature Gran % 0.6 Nucleated RBC % 0.0 Immature Gran # 0.06 Segmented Neutrophils 74 Lymphocytes 11 L Monocytes 14 Eosinophils 1 Nucleated RBCs # 0.00 Platelet Estimate Adequate Hypochromasia 1+ Ovalocytes Slight Elliptocytes Few Sodium 142 Potassium 4.6 Chloride 107 Carbon Dioxide 24 Anion Gap 15.6 H BUN 44 H Creatinine 1.30 GFR Calculation 71 BUN/Creatinine Ratio 33.00 H Glucose 187 H POC Glucose 249 H Calculated Osmolality 298.1 Calcium 7.4 L Magnesium 3.0 H Total Bilirubin 0.40 Direct Bilirubin 0.1 Indirect Bilirubin 0.3 AST 25 ALT 58 Alkaline Phosphatase 55 Total Creatine Kinase 66 D CK-MB (CK-2) < 1.0 Troponin I 0.162 H D Total Protein 5.4 L Albumin 2.5 L Globulin 2.9 Albumin/Globulin Ratio 0.8 L Quality Measures - VTE Contraindication to Pharmacological VTE Prophylaxis: Already on Theraputic Agent , No Prophylaxis Needed Specialty Discharge - Follow Up or Referrals
[2016-11-23] MEDS: AMIODARONE 200 MG TABLET PO SCH ×2 (10:43→21:16)
[2016-11-23] MEDS: CARVEDILOL 3.125 MG TABLET PO SCH ×2 (10:43→21:16)
--- NOTE | 2016-11-23 13:29 | Hospitalist Progress Note ---
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 No complaints. Following for DM management. FSG still elevated but slightly improved. Changes made yesterday, including increasing Lantus, first dose only last night. So will continue current course for now. Will monitor and adjust as needed. Exam - Constitutional Vitals: Period Temp Pulse Resp BP Sys/Wong Pulse Ox Last 24 Hr 97.1 F-98 F 56-136 16-118 117-140/62-75 98-100 General appearance: normal weight - Head Head exam: Present: normocephalic, atraumatic - Eye Eye exam: Present: EOMI Pupils: Present: ELBA - ENT ENT exam: Present: normal exam - Neck Neck exam: Present: normal inspection. Absent: tenderness - Respiratory Respiratory exam: Present: clear to auscultation bilaterally - Cardiovascular Cardiovascular exam: Present: regular rate and rhythm, other (sternal wound, no erythema or drainage) - GI/Abdominal GI/Abdominal exam: Present: normal bowel sounds, soft - Extremities Exam Extremities exam: Present: edema (RLE with wound, wrapped, no erythema or drainage), other - Back Exam Back exam: Present: normal inspection - Neurological Exam Neurological exam: Present: alert, oriented X3 - Psychiatric Psychiatric exam: Present: normal affect, normal mood - Skin Skin exam: Present: warm, intact Results - Labs CBC & BMP: 11/23/16 05:40 11/23/16 05:40 Quality Measures - VTE Contraindication to Pharmacological VTE Prophylaxis: Already on Theraputic Agent , No Prophylaxis Needed Specialty Discharge - Follow Up or Referrals
[2016-11-23] MEDS: INSULIN GLARGINE 100 UNIT/ML SUBCUT SCH (21:17)
--- NOTE | 2016-11-24 06:54 | Cardiothoracic Progress Note ---
Cardiothoracic Subjective Interval history: Patient looks and feels okay. He had a comfortable night. Vital signs are stable and he is breathing comfortably. He has gradually been increasing his activity level and I think he may be ready for discharge tomorrow. Exam (Progress Note) - Constitutional Vitals: Period Temp Pulse Resp BP Sys/Wong Pulse Ox Last 24 Hr 97.1 F-98.1 F 53-67 16-20 117-147/64-75 92-100 Result/EKG - Labs CBC & BMP: 11/23/16 05:40 11/23/16 05:40 Labs: Laboratory Results - last 24 hr 11/23/16 11/23/16 11/23/16 05:40 05:40 07:10 WBC 10.3 RBC 3.52 L Hgb 9.8 L Hct 30.3 L MCV 86.1 L MCH 28 MCHC 32.3 RDW 13.6 Plt Count 264 MPV 11.5 Neut % (Auto) 65.8 Lymph % (Auto) 14.7 L [place] % (Auto) 15.9 H Eos % (Auto) 2.9 Baso % (Auto) 0.1 Neut # (Auto) 6.8 Lymph # (Auto) 1.5 [place] # (Auto) 1.6 H Eos # (Auto) 0.3 Baso # (Auto) 0.0 Total Counted 100 Immature Gran % 0.6 Nucleated RBC % 0.0 Immature Gran # 0.06 Segmented Neutrophils 74 Lymphocytes 11 L Monocytes 14 Eosinophils 1 Nucleated RBCs # 0.00 Platelet Estimate Adequate Hypochromasia 1+ Ovalocytes Slight Elliptocytes Few Sodium 142 Potassium 4.6 Chloride 107 Carbon Dioxide 24 Anion Gap 15.6 H BUN 44 H Creatinine 1.30 GFR Calculation 71 BUN/Creatinine Ratio 33.00 H Glucose 187 H POC Glucose 249 H Calculated Osmolality 298.1 Calcium 7.4 L Magnesium 3.0 H Total Bilirubin 0.40 Direct Bilirubin 0.1 Indirect Bilirubin 0.3 AST 25 ALT 58 Alkaline Phosphatase 55 Total Creatine Kinase 66 D CK-MB (CK-2) < 1.0 Troponin I 0.162 H D Total Protein 5.4 L Albumin 2.5 L Globulin 2.9 Albumin/Globulin Ratio 0.8 L 11/23/16 11/23/16 11/23/16 13:07 16:48 21:06 WBC RBC Hgb Hct MCV MCH MCHC RDW Plt Count MPV Neut % (Auto) Lymph % (Auto) [place] % (Auto) Eos % (Auto) Baso % (Auto) Neut # (Auto) Lymph # (Auto) [place] # (Auto) Eos # (Auto) Baso # (Auto) Total Counted Immature Gran % Nucleated RBC % Immature Gran # Segmented Neutrophils Lymphocytes Monocytes Eosinophils Nucleated RBCs # Platelet Estimate Hypochromasia Ovalocytes Elliptocytes Sodium Potassium Chloride Carbon Dioxide Anion Gap BUN Creatinine GFR Calculation BUN/Creatinine Ratio Glucose POC Glucose 243 H 294 H 247 H Calculated Osmolality Calcium Magnesium Total Bilirubin Direct Bilirubin Indirect Bilirubin AST ALT Alkaline Phosphatase Total Creatine Kinase CK-MB (CK-2) Troponin I Total Protein Albumin Globulin Albumin/Globulin Ratio Quality Measures - VTE Contraindication to Pharmacological VTE Prophylaxis: Already on Theraputic Agent , No Prophylaxis Needed Specialty Discharge - Follow Up or Referrals
[2016-11-24] MEDS: INSULIN REGULAR 100 UNIT/ML SUBCUT SCH ×4 (08:42→21:29)
[2016-11-24] MEDS: INSULIN LISPRO 100 UNIT/ML SUBCUT SCH ×3 (08:43→17:07)
[2016-11-24] MEDS: AMIODARONE 200 MG TABLET PO SCH ×2 (08:44→21:29)
[2016-11-24] MEDS: ASPIRIN EC 325 MG TABLET PO SCH (08:44)
[2016-11-24] MEDS: sitaGLIPtin 100 MG TABLET PO SCH (08:44)
[2016-11-24] MEDS: CARVEDILOL 3.125 MG TABLET PO SCH ×2 (08:44→21:28)
[2016-11-24] MEDS: PANTOPRAZOLE 40 MG TABLET PO SCH (08:44)
[2016-11-24] MEDS: DOCUSATE SODIUM 100 MG CAPSULE PO SCH (08:44)
[2016-11-24] MEDS: FERROUS SULFATE 325 MG TABLET PO SCH (08:44)
[2016-11-24] MEDS: CHLORHEXIDINE 0.12% ORAL RINSE 60 ML BOTTLE SWISH/SPIT SCH ×2 (08:50→21:38)
--- NOTE | 2016-11-24 12:17 | Cardiology Progress Note ---
Michael Alejo Rachel RN, am scribing for, and in the presence of, Nelson Pina MD 12:17. Assessment and Plan (1) Coronary artery disease Status: Chronic Assessment and plan: He has multivessel disease and is status post CABG with LOPEZ graft to LAD and vein graft and. He is doing well postoperatively. Continue usual postoperative care. 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 Current Visit: Yes (4) Hypertension Status: Chronic Assessment and plan: This is clinically stable. No change in management required at this time. Current Visit: Yes (5) Ischemic cardiomyopathy Status: Chronic Assessment and plan: Preoperative ejection fraction approximately 35%. We will repeat his echocardiogram as an outpatient during follow-up. Current Visit: Yes (6) Status post coronary artery bypass graft Status: Acute Assessment and plan: Patient is status post a left heart catheterization. He was noted to have multivessel disease and is status post CABG with LOPEZ graft to LAD and vein graft and. He is doing well postoperatively. Continue current plan of care. Current Visit: Yes (7) Bradycardia Status: Acute Assessment and plan: This is clinically stable. He is currently sinus bradycardia with heart rates in the 50s. He is asymptomatic with this. Vital signs are stable. We will continue to monitor on telemetry. Pacer wires remain intact. Current Visit: Yes (8) Creatinine elevation Status: Resolved Current Visit: Yes (9) Atrial fibrillation Status: Resolved Current Visit: Yes Cardiology - PN: Subj Interval history: Patient was seen on telemetry. He is postop day #6 two-vessel CABG with LOPEZ graft to LAD and vein graft to OM. Preop ejection fraction was noted to be 30% . Patient developed postop atrial fibrillation and converted with amiodarone. He then developed bradycardia and required temporary pacing at 80 bpm. Patient is no longer requiring pacing. However, pacer wires remain intact. He did well overnight and is without complaints this morning. He denies chest pain, shortness of breath and palpitations. He has ambulated around his room and down the ball without any difficulty. He continues to be weak however this has improved. Patient did well overnight and is without any new complaints this morning. Midsternal chest and right lower extremity incision is healing well without any signs of infection. Vital signs are stable. He is currently in sinus bradycardia with heart rates in the 50s without any overt arrhythmias or ectopy noted. We will continue to monitor on telemetry. Active Medications Acetaminophen (Tylenol Tab) 650 mg PO Q4H PRN PRN Reason: Temperature greater than 100F Al Hydrox/Mg Hydrox/Simethicone (Mylanta Max Strength Liquid) 30 ml PO Q4H PRN PRN Reason: Dyspepsia Amiodarone HCl (Cordarone Tab) 200 mg PO BID [facility] Last Admin: 11/24/16 08:44 Dose: 200 mg Aspirin () 325 mg PO DAILY [facility] Last Admin: 11/24/16 08:44 Dose: 325 mg Carvedilol (Coreg) 3.125 mg PO BID [facility] Last Admin: 11/24/16 08:44 Dose: 3.125 mg Chlorhexidine Gluconate (Peridex) 15 ml SWISH/SPIT BID [facility] Last Admin: 11/24/16 08:50 Dose: 15 ml Dextrose/Water (D50) 25 gm IV PRN PRN PRN Reason: Hypoglycemia with IV access Docusate Sodium (Colace Cap) 100 mg PO DAILY [facility] Last Admin: 11/24/16 08:44 Dose: 100 mg Ferrous Sulfate (Feosol Original Tab) 325 mg PO DAILY [facility] Last Admin: 11/24/16 08:44 Dose: 325 mg Glucagon () 1 mg IM PRN PRN PRN Reason: Hypoglycemia w/o IV access Heparin Sodium (Porcine) () 50 units IV Q12H [facility] Last Admin: 11/24/16 05:22 Dose: 50 units Heparin Sodium (Porcine) () 50 units IV PRN PRN PRN Reason: CENTRAL [facility] CARE Magnesium Sulfate 2 gm/ Premix 50 mls @ 25 mls/hr IV .PER PROTOCOL PRN; Protocol PRN Reason: Per Protocol Magnesium Sulfate 4 gm/ Premix 100 mls @ 25 mls/hr IV .PER PROTOCOL PRN; Protocol PRN Reason: Per Protocol Insulin Glargine (Lantus) 36 unit SUBCUT BEDTIME [facility] Last Admin: 11/23/16 21:17 Dose: 36 unit Insulin Human Lispro (Humalog) 12 unit SUBCUT TID W/MEALS [facility] Last Admin: 11/24/16 08:43 Dose: 12 unit Insulin Human Regular (Humulin R) 0 unit SUBCUT ACHS [facility] PRN Reason: Protocol Last Admin: 11/24/16 08:42 Dose: Not Given Magnesium Hydroxide (Milk Of Magnesia) 30 ml PO Q6H PRN PRN Reason: Constipation Last Admin: 11/20/16 20:52 Dose: 30 ml Metoclopramide HCl (Reglan Inj) 10 mg IV Q6H PRN PRN Reason: Nausea/Vomiting Last Admin: 11/18/16 11:10 Dose: 10 mg Morphine Sulfate () 2 mg IV Q2H PRN PRN Reason: Pain Moderate (4-7) Ondansetron HCl (Zofran Inj) 4 mg IV Q4H PRN PRN Reason: Nausea/Vomiting Last Admin: 11/18/16 08:38 Dose: 4 mg Oxycodone/Acetaminophen (Percocet 5-325) 1 tablet PO Q4H PRN PRN Reason: Pain Mild (1-3) Last Admin: 11/22/16 12:31 Dose: 1 tablet Pantoprazole Sodium (Protonix Tab) 40 mg PO DAILY [facility] Last Admin: 11/24/16 08:44 Dose: 40 mg Potassium Chloride (K Dur) 20 meq PO .PER PROTOCOL PRN; Protocol PRN Reason: Per Protocol Sitagliptin Phosphate (Januvia) 100 mg PO DAILY [facility] Last Admin: 11/24/16 08:44 Dose: 100 mg Zaleplon (Sonata) 5 mg PO BEDTIME PRN PRN Reason: Sleep Exam (Progress Note) - Constitutional Vitals: Period Temp Pulse Resp BP Sys/Wong Pulse Ox Last 24 Hr 97.1 F-98.1 F 51-67 16-20 117-147/64-72 92-98 - Other Additional findings: General appearance: no acute distress, over weight - Head Head exam: Present: normal inspection, normocephalic, atraumatic - Respiratory Respiratory exam: Present: decreased breath sounds. Absent: accessory muscle use, rales, rhonchi, stridor, wheezes - Cardiovascular Cardiovascular exam: Present: regular rate and rhythm, bradycardia. Absent: tachycardia - GI/Abdominal GI/Abdominal exam: Present: normal bowel sounds, soft. Absent: distended, firm , mass, tenderness - Extremities Exam Extremities exam: Present: normal inspection, normal capillary refill, edema ( Trace edema to lower extremities), other (Right lower extremity incision healing well without signs of infection) - Neurological Exam Neurological exam: Present: alert, oriented X3 - Skin Skin exam: Present: normal color, warm, dry, other (Midsternal chest incision healing well without signs of infection). Absent: cyanosis, erythema Result/EKG - Labs CBC & BMP: 11/23/16 05:40 11/23/16 05:40 Lab Results: I have reviewed the past 24 hour labs Labs: Laboratory Results - last 24 hr 11/23/16 11/23/16 11/23/16 13:07 16:48 21:06 POC Glucose 243 H 294 H 247 H 11/24/16 11/24/16 07:24 11:21 POC Glucose 149 H 122 H - EKG EKG results: interpreted by me, sinus rhythm EKG shows: bradycardia Quality Measures - VTE Contraindication to Pharmacological VTE Prophylaxis: Already on Theraputic Agent , No Prophylaxis Needed Specialty Discharge - Follow Up or Referrals I, Nelson Pina MD, personally performed the services described in this documentation, ascribed by Sona Rodriguez RN in my presence, and it is both accurate and complete .
--- NOTE | 2016-11-24 15:33 | Hospitalist Progress Note ---
Assessment and Plan (1) Coronary artery disease Status: Chronic Current Visit: Yes (2) Hypertension Status: Chronic Current Visit: Yes (3) Dyslipidemia Status: Chronic Current Visit: Yes (4) Diabetes Status: Chronic Current Visit: Yes Qualifiers: Diabetes mellitus type: type 2 Diabetes mellitus complication status: without complication Diabetes mellitus therapy coordinator insulin use: with therapy coordinator use Qualified Code(s): E11.9 - Type 2 diabetes mellitus without complications ; Z79.4 - longterm (current) use of insulin (5) Status post coronary artery bypass graft Status: Acute Current Visit: Yes Hospitalist: Subjective Interval history: Patient's fsg is improving today. He reports to me that he takes Levemir 60 units Daily outpatient. I added it to his ambulatory list. If patient is discharged tomorrow, he can resume his home diabetes regimen. He will need to see his PCP in ~1 week. Discussed these things with him today. Exam - Constitutional Vitals: Period Temp Pulse Resp BP Sys/Wong Pulse Ox Last 24 Hr 97.1 F-98.1 F 51-67 16-20 122-147/61-72 92-98 Results - Labs CBC & BMP: 11/23/16 05:40 11/23/16 05:40 Quality Measures - VTE Contraindication to Pharmacological VTE Prophylaxis: Already on Theraputic Agent , No Prophylaxis Needed Specialty Discharge - Follow Up or Referrals
[2016-11-24] MEDS: INSULIN GLARGINE 100 UNIT/ML SUBCUT SCH (21:28)
[2016-11-25] MEDS: INSULIN REGULAR 100 UNIT/ML SUBCUT SCH ×4 (09:15→21:18)
--- NOTE | 2016-11-25 09:39 | Cardiothoracic Progress Note ---
Cardiothoracic Subjective Interval history: Patient is doing better. His vital signs are stable and he is breathing comfortably. He is ambulating without difficulty. I think he will be ready for discharge in the morning. Exam (Progress Note) - Constitutional Vitals: Period Temp Pulse Resp BP Sys/Wong Pulse Ox Last 24 Hr 97.3 F-98.3 F 52-59 16-20 122-165/51-76 92-100 Result/EKG - Labs CBC & BMP: 11/23/16 05:40 11/23/16 05:40 Labs: Laboratory Results - last 24 hr 11/24/16 11/24/16 11/24/16 11:21 16:38 20:07 POC Glucose 122 H 169 H 152 H 11/25/16 07:14 POC Glucose 151 H Quality Measures - VTE Contraindication to Pharmacological VTE Prophylaxis: Already on Theraputic Agent , No Prophylaxis Needed Specialty Discharge - Follow Up or Referrals
[2016-11-25] MEDS: sitaGLIPtin 100 MG TABLET PO SCH (10:23)
[2016-11-25] MEDS: INSULIN LISPRO 100 UNIT/ML SUBCUT SCH ×3 (10:23→17:03)
[2016-11-25] MEDS: DOCUSATE SODIUM 100 MG CAPSULE PO SCH (10:23)
[2016-11-25] MEDS: ASPIRIN EC 325 MG TABLET PO SCH (10:24)
[2016-11-25] MEDS: CARVEDILOL 3.125 MG TABLET PO SCH ×2 (10:24→21:18)
[2016-11-25] MEDS: PANTOPRAZOLE 40 MG TABLET PO SCH (10:24)
[2016-11-25] MEDS: AMIODARONE 200 MG TABLET PO SCH ×2 (10:24→21:18)
[2016-11-25] MEDS: FERROUS SULFATE 325 MG TABLET PO SCH (10:24)
[2016-11-25] MEDS: CHLORHEXIDINE 0.12% ORAL RINSE 60 ML BOTTLE SWISH/SPIT SCH ×2 (10:26→22:03)
--- NOTE | 2016-11-25 14:28 | Hospitalist Progress Note ---
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 There is a chance of discharge tomorrow. He is currently doing well on Lantus 36 units nightly. He takes Levemir 60 units at home. Will discharge him on Levemir 30 units with instructions to keep a log. I have already written a prescription for the 30 and placed it in his chart. He will need to see his PCP in 1-2 weeks. Exam - Constitutional Vitals: Period Temp Pulse Resp BP Sys/Wong Pulse Ox Last 24 Hr 97.1 F-98.3 F 52-63 16-20 127-165/51-76 92-100 General appearance: over weight - Head Head exam: Present: normocephalic, atraumatic - Eye Eye exam: Present: EOMI Pupils: Present: ELBA - ENT ENT exam: Present: normal exam - Neck Neck exam: Present: normal inspection. Absent: tenderness - Respiratory Respiratory exam: Present: clear to auscultation bilaterally - Cardiovascular Cardiovascular exam: Present: regular rate and rhythm - GI/Abdominal GI/Abdominal exam: Present: normal bowel sounds, soft. Absent: distended, tenderness - Extremities Exam Extremities exam: Present: normal inspection - Back Exam Back exam: Present: normal inspection - Neurological Exam Neurological exam: Present: alert, oriented X3 - Psychiatric Psychiatric exam: Present: normal affect, normal mood - Skin Skin exam: Present: warm, intact Results - Labs CBC & BMP: 11/23/16 05:40 11/23/16 05:40 Quality Measures - VTE Contraindication to Pharmacological VTE Prophylaxis: Already on Theraputic Agent , No Prophylaxis Needed Specialty Discharge - Follow Up or Referrals
--- NOTE | 2016-11-25 16:21 | Cardiology Progress Note ---
Michael Alejo Rachel RN, am scribing for, and in the presence of, Nelson Pina MD 16:20. Assessment and Plan (1) Coronary artery disease Status: Chronic Assessment and plan: He has multivessel disease and is status post CABG with LOPEZ graft to LAD and vein graft and. He is doing well postoperatively. Continue usual postoperative care. 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 Current Visit: Yes (4) Hypertension Status: Chronic Assessment and plan: This is clinically stable. No change in management required at this time. Current Visit: Yes (5) Ischemic cardiomyopathy Status: Chronic Assessment and plan: Preoperative ejection fraction approximately 35%. We will repeat his echocardiogram as an outpatient during follow-up. Current Visit: Yes (6) Status post coronary artery bypass graft Status: Acute Assessment and plan: Patient is status post a left heart catheterization. He was noted to have multivessel disease and is status post CABG with LOPEZ graft to LAD and vein graft and. He is doing well postoperatively. Continue current plan of care. Current Visit: Yes (7) Bradycardia Status: Acute Assessment and plan: This is clinically stable. He is currently sinus bradycardia with heart rates in the 50s. He is asymptomatic with this. Vital signs are stable with systolic blood pressure of 145 noted. We will continue to monitor on telemetry. Pacer wires remain intact. Current Visit: Yes (8) Creatinine elevation Status: Resolved Current Visit: Yes (9) Atrial fibrillation Status: Resolved Current Visit: Yes Cardiology - PN: Subj Interval history: Patient was seen on telemetry. He is postop day #7 two-vessel CABG with LOPEZ graft to LAD and vein graft to OM. Preop ejection fraction was noted to be 30% . Patient developed postop atrial fibrillation and converted with amiodarone. He then developed bradycardia and required temporary pacing at 80 bpm. Patient is no longer requiring pacing. However, pacer wires remain intact. He did well overnight and is without complaints this morning. He denies chest pain, shortness of breath and palpitations. He is ambulatory without difficulty and has good appetite. Midsternal chest and right lower extremity incision is healing well without any signs of infection. Vital signs are stable. Currently in sinus rhythm with heart rates in the 60s with occasional PACs noted. Dr. Andrade plans for patient to be discharged home tomorrow if continues to do well. We will continue to monitor on telemetry overnight. Active Medications Acetaminophen (Tylenol Tab) 650 mg PO Q4H PRN PRN Reason: Temperature greater than 100F Al Hydrox/Mg Hydrox/Simethicone (Mylanta Max Strength Liquid) 30 ml PO Q4H PRN PRN Reason: Dyspepsia Amiodarone HCl (Cordarone Tab) 200 mg PO BID [facility] Last Admin: 11/24/16 21:29 Dose: 200 mg Aspirin () 325 mg PO DAILY [facility] Last Admin: 11/24/16 08:44 Dose: 325 mg Carvedilol (Coreg) 3.125 mg PO BID [facility] Last Admin: 11/24/16 21:28 Dose: 3.125 mg Chlorhexidine Gluconate (Peridex) 15 ml SWISH/SPIT BID [facility] Last Admin: 11/24/16 21:38 Dose: 15 ml Dextrose/Water (D50) 25 gm IV PRN PRN PRN Reason: Hypoglycemia with IV access Docusate Sodium (Colace Cap) 100 mg PO DAILY [facility] Last Admin: 11/24/16 08:44 Dose: 100 mg Ferrous Sulfate (Feosol Original Tab) 325 mg PO DAILY [facility] Last Admin: 11/24/16 08:44 Dose: 325 mg Glucagon () 1 mg IM PRN PRN PRN Reason: Hypoglycemia w/o IV access Heparin Sodium (Porcine) () 50 units IV Q12H [facility] Last Admin: 11/25/16 05:13 Dose: 50 units Heparin Sodium (Porcine) () 50 units IV PRN PRN PRN Reason: CENTRAL LINE CARE Magnesium Sulfate 2 gm/ Premix 50 mls @ 25 mls/hr IV .PER PROTOCOL PRN; Protocol PRN Reason: Per Protocol Magnesium Sulfate 4 gm/ Premix 100 mls @ 25 mls/hr IV .PER PROTOCOL PRN; Protocol PRN Reason: Per Protocol Insulin Glargine (Lantus) 36 unit SUBCUT BEDTIME [facility] Last Admin: 11/24/16 21:28 Dose: 36 unit Insulin Human Lispro (Humalog) 12 unit SUBCUT TID W/MEALS [facility] Last Admin: 11/24/16 17:07 Dose: 12 unit Insulin Human Regular (Humulin R) 0 unit SUBCUT ACHS [facility] PRN Reason: Protocol Last Admin: 11/25/16 09:15 Dose: Not Given Magnesium Hydroxide (Milk Of Magnesia) 30 ml PO Q6H PRN PRN Reason: Constipation Last Admin: 11/20/16 20:52 Dose: 30 ml Metoclopramide HCl (Reglan Inj) 10 mg IV Q6H PRN PRN Reason: Nausea/Vomiting Last Admin: 11/18/16 11:10 Dose: 10 mg Morphine Sulfate () 2 mg IV Q2H PRN PRN Reason: Pain Moderate (4-7) Ondansetron HCl (Zofran Inj) 4 mg IV Q4H PRN PRN Reason: Nausea/Vomiting Last Admin: 11/18/16 08:38 Dose: 4 mg Oxycodone/Acetaminophen (Percocet 5-325) 1 tablet PO Q4H PRN PRN Reason: Pain Mild (1-3) Last Admin: 11/22/16 12:31 Dose: 1 tablet Pantoprazole Sodium (Protonix Tab) 40 mg PO DAILY [facility] Last Admin: 11/24/16 08:44 Dose: 40 mg Potassium Chloride (K Dur) 20 meq PO .PER PROTOCOL PRN; Protocol PRN Reason: Per Protocol Sitagliptin Phosphate (Januvia) 100 mg PO DAILY [facility] Last Admin: 11/24/16 08:44 Dose: 100 mg Zaleplon (Sonata) 5 mg PO BEDTIME PRN PRN Reason: Sleep Exam (Progress Note) - Constitutional Vitals: Period Temp Pulse Resp BP Sys/Wong Pulse Ox Last 24 Hr 97.3 F-98.3 F 52-59 16-20 122-165/51-76 92-100 Exam: General appearance: no acute distress, over weight - Head Head exam: Present: normal inspection, normocephalic, atraumatic - Respiratory Respiratory exam: Present: Clear to auscultation throughout. Absent: accessory muscle use, rales, rhonchi, stridor, wheezes - Cardiovascular Cardiovascular exam: Present: regular rate and rhythm. Absent: tachycardia, bradycardia - GI/Abdominal GI/Abdominal exam: Present: normal bowel sounds, soft. Absent: distended, firm , mass, tenderness - Extremities Exam Extremities exam: Present: normal inspection, normal capillary refill, edema ( Trace edema to lower extremities), other (Right lower extremity incision healing well without signs of infection) - Neurological Exam Neurological exam: Present: alert, oriented X3 - Skin Skin exam: Present: normal color, warm, dry, other (Midsternal chest incision healing well without signs of infection, pacer wires noted). Absent: cyanosis, erythema Result/EKG - Labs CBC & BMP: 11/23/16 05:40 11/23/16 05:40 Lab Results: I have reviewed the past 24 hour labs Labs: Laboratory Results - last 24 hr 11/24/16 11/24/16 11/24/16 11:21 16:38 20:07 POC Glucose 122 H 169 H 152 H 11/25/16 07:14 POC Glucose 151 H Quality Measures - VTE Contraindication to Pharmacological VTE Prophylaxis: Already on Theraputic Agent , No Prophylaxis Needed Specialty Discharge - Follow Up or Referrals I, Nelson Pina MD, personally performed the services described in this documentation, ascribed by Sona Rodriguez RN in my presence, and it is both accurate and complete .
[2016-11-25] MEDS: ASCORBIC ACID 500 MG TABLET PO SCH (21:17)
[2016-11-25] MEDS: INSULIN GLARGINE 100 UNIT/ML SUBCUT SCH (21:18)
--- NOTE | 2016-11-26 06:29 | Discharge Summary ---
Hospital Course - Hospital Course Hospital Course: History of present illness: Patient is a 66-year-old man who presented with symptoms of substernal chest discomfort related to exertion. He underwent cardiac evaluation including cardiac catheterization which demonstrated critical coronary disease. He was referred for bypass surgery. Past medical history is significant for history of diabetes hyperlipidemia and hypertension. Past medical history review of systems social history and family history are documented in his admission note. Hospital course: Patient was taken to surgery where two-vessel bypass grafting was performed without incident. Patient's postoperative course was essentially uncomplicated and he was discharged home on the eighth postoperative day with instructions to return for follow-up in 1 month. Discharge medications are listed below. Specialty Discharge - Follow Up or Referrals Follow up with: Asaf Andrade MD [Physician] - 1 Month Discharge Plan - Discharge Data Disposition: Home Health Service Condition at Discharge: Stable Discharge Diet: advance to your usual diet Activity: resume usual activities as tolerated Hygiene: no restrictions Weight Bearing at Discharge: full weight bearing Driving: not until seen by doctor - Discharge Medications Changed Insulin Detemir [Levemir] 30 unit SUBCUT BEDTIME #10 ml No Action Simvastatin [Zocor] 40 mg PO DAILY Metoprolol Succinate Xl [Toprol Xl] 50 mg PO DAILY Lisinopril [Prinivil] 20 mg PO DAILY Glipizide [Glipizide Xl] 10 mg PO DAILY Aspirin [Ecotrin] 81 mg PO DAILY Isosorbide Mononitrate [Isosorbide Mononitrate ER] 30 mg PO DAILY Saxagliptin HCl [Onglyza] 2.5 mg PO DAILY - Follow Up or Referral - Forms/Instructions Instructions: Coronary Artery Disease (GEN), Coronary Artery Bypass Graft (DC) , Heart Healthy Diet (GEN), Sternal Precautions (GEN) Exam - Constitutional Vitals: Period Temp Pulse Resp BP Sys/Wong Pulse Ox Last 24 Hr 96.6 F-97.7 F 48-97 16-20 108-165/57-74 90-100 Discharge Results Procedures and tests throughout hospitalization: Pending Orders 11/16/16 03:30 Fresh Frozen Plasma IN AM Red Blood Cells Leuko Red IN AM Single Donor Platelets IN AM Type and Screen Routine Labs on day of discharge: Labs from last 24 hours 11/25/16 11/25/16 11/25/16 19:33 11:32 07:14 POC Glucose 175 H 132 H 151 H DS: Provider Date of admission: 11/13/16 12:35 Primary care physician: Carrie Pompa MD Attending physician on admission: Yonis Olson MD Consults: 11/12/16 13:20 Consult to Dietitian [CONS] Routine Reason for Dietitian: Other Consult Comment: low salt, low cholesterol, diet 11/18/16 07:08 Consult to Cardiac Rehabilitation [CONS] Routine Reason for Cardiac Rehabilitation: Other Consult Comment: Post CABG/heart surgery Consult to Diabetes Center, Educator [CONS] Routine 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 Education Initial Insulin Education Consult Comment: insulin education Consult to Dietitian [CONS] Routine Reason for Dietitian: Dietary Consult Consult Comment: Cardiac, low salt, low cholesterol diet Consult to Physical Therapy [CONS] Routine Reason for Physical Therapy: Other Consult Comment: CV Rehab Consult to Physician [CONS] Routine Comment: Management of diabetes Consulting Provider: Barber Serra Consult to Specialist Group: Hospitalist Person Notified: BARBER SERRA Date Notified: 11/19/16 Time Notified: 07:30 11/24/16 16:45 Consult to Case Mgmt/Social Srvs [CONS] Routine Reason for Case Mgmt/Social Srvs: Home Health Consult Comment: Nursing, Education, Med Management, PT Eval Discharging clinician: Asaf Andrade MD Expected date of discharge: 11/26/16
[2016-11-26 07:32] VITALS: BP 168/66
[2016-11-26] MEDS: INSULIN LISPRO 100 UNIT/ML SUBCUT SCH (10:02)
[2016-11-26] MEDS: ASPIRIN EC 325 MG TABLET PO SCH (10:03)
[2016-11-26] MEDS: DOCUSATE SODIUM 100 MG CAPSULE PO SCH (10:03)
[2016-11-26] MEDS: AMIODARONE 200 MG TABLET PO SCH (10:04)
[2016-11-26] MEDS: sitaGLIPtin 100 MG TABLET PO SCH (10:04)
[2016-11-26] MEDS: CARVEDILOL 3.125 MG TABLET PO SCH (10:04)
[2016-11-26] MEDS: FERROUS SULFATE 325 MG TABLET PO SCH (10:04)
[2016-11-26] MEDS: PANTOPRAZOLE 40 MG TABLET PO SCH (10:05)
[2016-11-26] MEDS: CHLORHEXIDINE 0.12% ORAL RINSE 60 ML BOTTLE SWISH/SPIT SCH (10:05)
[2016-11-26] MEDS: ASCORBIC ACID 500 MG TABLET PO SCH (10:05)
[2016-11-26] MEDS: INSULIN REGULAR 100 UNIT/ML SUBCUT SCH (11:18)
== END 2016-11-26 11:26 | disposition home health service (06) | DRG 234 ==
LOC: N.TELES → N.CVR 11-17 11:27 → N.TELES 11-18 11:41
PROVIDERS: ADMIT Internal Medicine Interventional Cardiology; ATTEND Internal Medicine Interventional Cardiology
PROC: CLCCHCL (ICD-10-PCS; 2016-11-12 09:15)

== ENCOUNTER 2017-08-10 23:34 | Inpatient (IN) ==
[2017-08-10] MEDS ORDERED: ALBUTEROL 2.5 MG/3 ML NEB RESP TX SCH (23:45)
[2017-08-10] MEDS ORDERED: methylPREDNISolone SOD SUC 125 MG/2 ML VIAL IV STA (23:59)
[2017-08-10] MEDS ORDERED: ONDANSETRON 4 MG/2 ML VIAL IV STA (23:59)
[2017-08-10] MEDS ORDERED: AZITHROMYCIN INJ 500 MG in SODIUM CHLORIDE 0.9% 250 ML IV STA (23:59)
[2017-08-10] MEDS ORDERED: FUROSEMIDE 100 MG/10 ML VIAL IV STA (23:59)
[2017-08-10] MEDS ORDERED: ASPIRIN 325 MG TABLET PO STA (23:59)
[2017-08-11] MEDS ORDERED: ALBUTEROL 2.5 MG/3 ML NEB RESP TX ONE (00:08)
[2017-08-11] MEDS ORDERED: AZITHROMYCIN 500 MG VIAL IV ONE (00:23)
[2017-08-11] MEDS ORDERED: FUROSEMIDE 100 MG/10 ML VIAL ONE (00:23)
[2017-08-11] MEDS ORDERED: methylPREDNISolone SOD SUC 125 MG/2 ML VIAL ONE (00:23)
[2017-08-11] MEDS ORDERED: SODIUM CHLORIDE 0.9% 100 ML IV ONE ×2 (00:23→01:51)
[2017-08-11] MEDS ORDERED: ONDANSETRON 4 MG/2 ML VIAL ONE (00:23)
[2017-08-11] MEDS ORDERED: ASPIRIN 325 MG TABLET ONE (00:23)
[2017-08-11 00:53] LABS: ABG Base Excess -2.9 MMOL/L (-2.5-2.5); ABG HCO3 21.9 MMOL/L (20-26); ABG Oxygen Saturation 95.8 % (95-100); ABG PCO2 35.2 MM HG (35-48); ABG PH 7.391 (7.35-7.45); ABG PO2 77.1 MM HG (80-95); ABG TCO2 18.9 MMOL/L (23-27)
[2017-08-11 00:59] LABS: Basophils # 0.1 10*3/uL (0.0-0.2); Basophils % 0.4 % (0.0-0.8); Eosinophils # 0.4 10*3/uL (0.0-0.87); Eosinophils % 3.1 % (0.00-10.9); Hematocrit 37.2 VOL% (42.0-52.0); Hemoglobin 12.6 GM/DL (14.0-18.0); Immature Granulocytes % 0.5 %; Immature Granulocytes Absolute 0.06 #; Lymphocytes # 1.6 10*3/uL (1.4-4.0); Lymphocytes % 14.1 % (21.2-54.2); Mean Corpuscular HGB Conc 33.9 GM/DL (32-36); Mean Corpuscular Hemoglobin 28 PG (27-34); Mean Corpuscular Volume 83.6 FL (87-102); Mean Platelet Volume 10.2 FL (9.6-12.0); Monocytes # 1.5 10*3/uL (0.11-0.8); Monocytes % 13.4 % (1.7-12.7); Neutrophils # 7.8 10*3/uL (1.4-7.4); Neutrophils % 68.5 % (38.7-73.9); Platelet Count 311 T/CUMM (130-400); Red Blood Count 4.45 MC/CUMM (3.8-5.5); Red Cell Distribution Width 13.2 % (9.3-17.3); White Blood Count 11.4 T/CUMM (4-12)
[2017-08-11 01:08] LABS: INR 1.1
[2017-08-11 01:25] LABS: Albumin 2.8 G/DL (3.4-5.0); Bilirubin,Total 0.6 MG/DL (0.2-1.0); Calcium 8.2 MG/DL (8.5-10.1); Magnesium 1.9 MG/DL (1.8-2.4); Osmolality,Calculated 285.4 MOS/KG (273-304); Potassium 4.6 MMOL/L (3.5-5.1); Total Protein 6.7 G/DL (6.4-8.3); Troponin I Only 0.021 NG/ML (0.00-0.045)
[2017-08-11] MEDS ORDERED: cefTRIAXone 1,000 MG in SYRINGE 1 EACH IV SCH (01:42)
[2017-08-11] MEDS ORDERED: GLUCAGON 1 MG VIAL IM PRN (01:42)
[2017-08-11] MEDS ORDERED: DEXTROSE 50% 25 GM/50 ML VIAL IV PRN (01:42)
[2017-08-11] MEDS ORDERED: MORPHINE 2 MG/1 ML SYRINGE IV PRN (01:42)
[2017-08-11] MEDS ORDERED: ONDANSETRON 4 MG/2 ML VIAL IV PRN (01:42)
[2017-08-11] MEDS ORDERED: ALBUTEROL/IPRATROPIUM 3 ML NEB RESP TX PRN (01:42)
[2017-08-11] MEDS ORDERED: ACETAMINOPHEN 325 MG TABLET PO PRN (01:42)
[2017-08-11] MEDS ORDERED: cefTRIAXone 1,000 MG VIAL ONE (01:51)
[2017-08-11] MEDS ORDERED: AZITHROMYCIN INJ 500 MG in SODIUM CHLORIDE 0.9% 250 ML IV SCH (02:30)
[2017-08-11] MEDS: ALBUTEROL/IPRATROPIUM 3 ML NEB RESP TX SCH ×5 (03:33→20:59)
[2017-08-11 04:27] LABS: Risk Ratio 3.76; VLDL CHOLESTEROL 14.6 MG/DL
[2017-08-11] MEDS ORDERED: INSULIN REGULAR 100 UNIT/ML ONE ×2 (08:05→11:49)
[2017-08-11] MEDS: INSULIN REGULAR 100 UNIT/ML SUBCUT SCH ×4 (08:08→21:20)
[2017-08-11] MEDS ORDERED: FUROSEMIDE 40 MG/4 ML VIAL ONE (08:54)
[2017-08-11] MEDS ORDERED: PANTOPRAZOLE 40 MG TABLET PO ONE (08:54)
[2017-08-11] MEDS: FUROSEMIDE 40 MG/4 ML VIAL IV SCH ×2 (08:56→15:39)
[2017-08-11] MEDS: PANTOPRAZOLE 40 MG TABLET PO SCH (08:56)
[2017-08-11] MEDS: DOCUSATE SODIUM 100 MG CAPSULE PO SCH ×2 (11:52→21:19)
[2017-08-11] MEDS: ENOXAPARIN 40 MG/0.4 ML SYRINGE SUBCUT SCH (14:44)
[2017-08-11] MEDS: CARVEDILOL 3.125 MG TABLET PO SCH (21:19)
[2017-08-12] MEDS: ALBUTEROL/IPRATROPIUM 3 ML NEB RESP TX SCH ×7 (00:16→23:40)
[2017-08-12] MEDS: ENOXAPARIN 40 MG/0.4 ML SYRINGE SUBCUT SCH (01:12)
[2017-08-12 04:40] LABS: Calcium 8.1 MG/DL (8.5-10.1); Osmolality,Calculated 287.5 MOS/KG (273-304); Potassium 4.1 MMOL/L (3.5-5.1)
[2017-08-12 04:43] LABS: Risk Ratio 4.25
[2017-08-12] MEDS: INSULIN REGULAR 100 UNIT/ML SUBCUT SCH ×4 (08:55→22:05)
[2017-08-12] MEDS: CARVEDILOL 3.125 MG TABLET PO SCH ×2 (08:56→22:05)
[2017-08-12] MEDS: FUROSEMIDE 40 MG/4 ML VIAL IV SCH ×2 (08:56→17:42)
[2017-08-12] MEDS: PANTOPRAZOLE 40 MG TABLET PO SCH (08:56)
[2017-08-12] MEDS: LISINOPRIL 20 MG TABLET PO SCH (08:56)
[2017-08-12] MEDS: SIMVASTATIN 40 MG TABLET PO SCH (08:58)
[2017-08-12] MEDS: DOCUSATE SODIUM 100 MG CAPSULE PO SCH ×2 (08:58→22:05)
[2017-08-12] MEDS: ISOSORBIDE MONONITRATE 30 MG TABLET PO SCH (08:58)
[2017-08-12] MEDS: ASPIRIN EC 81 MG TABLET PO SCH (08:58)
[2017-08-12] MEDS: hydrALAZINE 25 MG TABLET PO SCH (22:05)
[2017-08-13] MEDS: ENOXAPARIN 40 MG/0.4 ML SYRINGE SUBCUT SCH (01:54)
[2017-08-13] MEDS: ALBUTEROL/IPRATROPIUM 3 ML NEB RESP TX SCH ×3 (03:15→11:55)
[2017-08-13 05:09] LABS: Basophils # 0.1 10*3/uL (0.0-0.2); Basophils % 0.6 % (0.0-0.8); Eosinophils # 0.3 10*3/uL (0.0-0.87); Eosinophils % 2.8 % (0.00-10.9); Immature Granulocytes % 1.2 %; Immature Granulocytes Absolute 0.11 #; Lymphocytes % 22.4 % (21.2-54.2); Mean Corpuscular HGB Conc 34.2 GM/DL (32-36); Mean Corpuscular Hemoglobin 28 PG (27-34); Mean Corpuscular Volume 81.4 FL (87-102); Mean Platelet Volume 10.5 FL (9.6-12.0); Monocytes # 0.9 10*3/uL (0.11-0.8); Monocytes % 10.5 % (1.7-12.7); Neutrophils # 5.6 10*3/uL (1.4-7.4); Neutrophils % 62.5 % (38.7-73.9); Platelet Count 304 T/CUMM (130-400); Red Blood Count 4.67 MC/CUMM (3.8-5.5)
[2017-08-13 05:41] LABS: Calcium 8.3 MG/DL (8.5-10.1); Osmolality,Calculated 289.8 MOS/KG (273-304); Potassium 4.1 MMOL/L (3.5-5.1)
[2017-08-13 05:44] LABS: Calcium 8.1 MG/DL (8.5-10.1); Magnesium 1.9 MG/DL (1.8-2.4); Osmolality,Calculated 291.7 MOS/KG (273-304); Potassium 4.2 MMOL/L (3.5-5.1)
[2017-08-13] MEDS: LISINOPRIL 20 MG TABLET PO SCH (08:50)
[2017-08-13] MEDS: DOCUSATE SODIUM 100 MG CAPSULE PO SCH (08:51)
[2017-08-13] MEDS: FUROSEMIDE 40 MG/4 ML VIAL IV SCH (08:51)
[2017-08-13] MEDS: ASPIRIN EC 81 MG TABLET PO SCH (08:51)
[2017-08-13] MEDS: PANTOPRAZOLE 40 MG TABLET PO SCH (08:51)
[2017-08-13] MEDS: hydrALAZINE 25 MG TABLET PO SCH (08:51)
[2017-08-13] MEDS: ISOSORBIDE MONONITRATE 30 MG TABLET PO SCH (08:51)
[2017-08-13] MEDS: SIMVASTATIN 40 MG TABLET PO SCH (08:51)
[2017-08-13] MEDS: INSULIN REGULAR 100 UNIT/ML SUBCUT SCH ×2 (08:52→13:11)
[2017-08-13] MEDS: CARVEDILOL 3.125 MG TABLET PO SCH (10:11)
[2017-08-13 12:41] VITALS: BP 148/85
== END 2017-08-13 14:45 | disposition home or self-care (01) | DRG 291 ==
LOC: EDBD → EDUNIT# → N.ED 23:34 → N.EDINP 08-11 01:05 → SUATTDRO 08-11 01:05 → N.TELEN 08-11 14:31
PROVIDERS: ADMIT Internal Medicine Infectious Disease; ATTEND Internal Medicine Geriatric Medicine

== ENCOUNTER 2019-03-04 13:11 | Inpatient (IN) ==
[2019-03-04] MEDS ORDERED: DILTIAZEM 50 MG/10 ML VIAL IV STA (13:35)
[2019-03-04] MEDS ORDERED: ONDANSETRON 4 MG/2 ML VIAL IV STA (13:36)
[2019-03-04] MEDS ORDERED: FUROSEMIDE 40 MG/4 ML VIAL IV STA (13:36)
[2019-03-04 13:42] LABS: Basophils # 0.1 10*3/uL (0.0-0.2); Basophils % 0.6 % (0.0-0.8); Eosinophils # 0.3 10*3/uL (0.0-0.87); Eosinophils % 3.2 % (0.00-10.9); Hematocrit 41.9 VOL% (42.0-52.0); Hemoglobin 13.1 GM/DL (14.0-18.0); Immature Granulocytes % 0.4 %; Immature Granulocytes Absolute 0.03 #; Lymphocytes # 1.8 10*3/uL (1.4-4.0); Lymphocytes % 22.9 % (21.2-54.2); Mean Corpuscular HGB Conc 31.3 GM/DL (32-36); Mean Corpuscular Volume 86.9 FL (87-102); Monocytes % 8.9 % (1.7-12.7); Platelet Count 239 T/CUMM (130-400); Red Blood Count 4.82 MC/CUMM (3.8-5.5); Red Cell Distribution Width 13.7 % (9.3-17.3); White Blood Count 7.9 T/CUMM (4-12)
[2019-03-04 13:48] LABS: INR 1.1
[2019-03-04] MEDS ORDERED: dilTIAZem Drip 125 MG/125 ML PREMIX IV SCH (14:00)
[2019-03-04 14:19] LABS: Albumin 3.4 G/DL (3.4-5.0); Bilirubin,Total 0.4 MG/DL (0.2-1.0); Calcium 8.6 MG/DL (8.5-10.1); Osmolality,Calculated 285.4 MOS/KG (273-304); Total Protein 7.3 G/DL (6.4-8.3)
[2019-03-04] MEDS ORDERED: LACTULOSE 20 GM/30 ML UDCUP PO PRN (14:47)
[2019-03-04] MEDS ORDERED: ACETAMINOPHEN 325 MG TABLET PO PRN (14:47)
[2019-03-04] MEDS ORDERED: ONDANSETRON 4 MG/2 ML VIAL IV PRN (14:47)
[2019-03-04] MEDS ORDERED: NITROGLYCERIN SL 0.4 MG TABLET SL PRN (14:53)
[2019-03-04] MEDS ORDERED: GLUCAGON 1 MG VIAL IM PRN (15:01)
[2019-03-04] MEDS ORDERED: DEXTROSE 10% 250 ML BAG IV PRN (15:01)
[2019-03-04] MEDS ORDERED: ENOXAPARIN 60 MG/0.6 ML SYRINGE SUBCUT ONE (16:43)
[2019-03-04] MEDS ORDERED: MAGNESIUM SULF RIDER 2 GM in PREMIX 1 EACH IV PRN (16:54)
[2019-03-04] MEDS ORDERED: MAGNESIUM SULF RIDER 4 GM in PREMIX 1 EACH IV PRN (16:54)
[2019-03-04] MEDS: CARVEDILOL 3.125 MG TABLET PO SCH (17:00)
[2019-03-04] MEDS: FUROSEMIDE 40 MG/4 ML VIAL IV SCH (17:00)
[2019-03-04 18:58] LABS: Apearance,Urine CLEAR (Clear); Bilirubin,Urine Negative (Negative); Blood, Urine Small mg/dL (Negative); Glucose,Urine (UA) Negative (Negative); Hyaline Casts,Urine 1 /LPF (0-3); Ketones,Urine Negative (Negative); Mucus,Urine Occasional /LPF (Occasional); Nitrite,Urine Negative (Negative); Protein,Urine 30 MG/DL; RBC,Urine 2 /HPF (0-4); Squamous Epithelial Cell,Urine Occasional /HPF (0-10); Urine Color Straw (Yellow); Urine Specific Gravity 1.005 (1.001-1.035); Urine Urobilinogen < 2.0 EU/DL (0.2-1.0); WBC,Urine <1 /HPF (0-6)
[2019-03-04] MEDS ORDERED: ENOXAPARIN 40 MG/0.4 ML SYRINGE SUBCUT SCH (21:00)
[2019-03-04] MEDS: ASCORBIC ACID 500 MG TABLET PO SCH (21:49)
[2019-03-04] MEDS: INSULIN LISPRO 100 UNIT/ML SUBCUT SCH (21:50)
[2019-03-05 00:38] LABS: Apearance,Urine CLEAR (Clear); Bilirubin,Urine Negative (Negative); Blood, Urine Small mg/dL (Negative); Glucose,Urine (UA) 50 mg/dL (Negative); Ketones,Urine Negative (Negative); Mucus,Urine Occasional /LPF (Occasional); Nitrite,Urine Negative (Negative); Protein,Urine 100 MG/DL; RBC,Urine 1 /HPF (0-4); Squamous Epithelial Cell,Urine Occasional /HPF (0-10); Urine Color Yellow (Yellow); Urine Specific Gravity 1.013 (1.001-1.035); Urine Urobilinogen < 2.0 EU/DL (0.2-1.0); WBC,Urine 1 /HPF (0-6)
[2019-03-05 04:57] LABS: Basophils % 0.5 % (0.0-0.8); Eosinophils # 0.3 10*3/uL (0.0-0.87); Eosinophils % 3.9 % (0.00-10.9); Hematocrit 40.6 VOL% (42.0-52.0); Hemoglobin 13.1 GM/DL (14.0-18.0); Immature Granulocytes % 0.3 %; Immature Granulocytes Absolute 0.02 #; Lymphocytes # 1.7 10*3/uL (1.4-4.0); Lymphocytes % 21.8 % (21.2-54.2); Mean Corpuscular HGB Conc 32.3 GM/DL (32-36); Mean Corpuscular Volume 84.9 FL (87-102); Mean Platelet Volume 11.6 FL (9.6-12.0); Monocytes % 10.5 % (1.7-12.7); Platelet Count 233 T/CUMM (130-400); Red Blood Count 4.78 MC/CUMM (3.8-5.5); Red Cell Distribution Width 13.5 % (9.3-17.3); White Blood Count 7.7 T/CUMM (4-12)
[2019-03-05 05:19] LABS: Calcium 8.6 MG/DL (8.5-10.1); Osmolality,Calculated 285.8 MOS/KG (273-304)
[2019-03-05 05:23] LABS: Calcium 8.7 MG/DL (8.5-10.1); Osmolality,Calculated 290.4 MOS/KG (273-304); Risk Ratio 3.91
[2019-03-05] MEDS: CARVEDILOL 3.125 MG TABLET PO SCH ×2 (08:22→16:38)
[2019-03-05] MEDS: ASCORBIC ACID 500 MG TABLET PO SCH ×2 (08:22→20:55)
[2019-03-05] MEDS: PANTOPRAZOLE 40 MG TABLET PO SCH (08:22)
[2019-03-05] MEDS: FUROSEMIDE 40 MG/4 ML VIAL IV SCH ×2 (08:23→16:21)
[2019-03-05] MEDS: ENOXAPARIN 100 MG/ML SYRINGE SUBCUT SCH ×2 (08:23→20:55)
[2019-03-05] MEDS: ASPIRIN EC 81 MG TABLET PO SCH (08:27)
[2019-03-05] MEDS: SIMVASTATIN 40 MG TABLET PO SCH (08:27)
[2019-03-05] MEDS: LISINOPRIL 20 MG TABLET PO SCH (08:27)
[2019-03-05] MEDS: INSULIN LISPRO 100 UNIT/ML SUBCUT SCH ×3 (08:34→21:08)
[2019-03-05] MEDS: ISOSORBIDE MONONITRATE 30 MG TABLET PO SCH (08:34)
[2019-03-05] MEDS: DILTIAZEM CD 120 MG CAPSULE PO SCH (16:37)
[2019-03-06 04:59] LABS: Basophils % 0.6 % (0.0-0.8); Eosinophils # 0.3 10*3/uL (0.0-0.87); Eosinophils % 4.8 % (0.00-10.9); Hematocrit 38.6 VOL% (42.0-52.0); Hemoglobin 12.7 GM/DL (14.0-18.0); Immature Granulocytes % 0.3 %; Immature Granulocytes Absolute 0.02 #; Lymphocytes # 1.8 10*3/uL (1.4-4.0); Lymphocytes % 26.1 % (21.2-54.2); Mean Corpuscular HGB Conc 32.9 GM/DL (32-36); Mean Corpuscular Volume 84.8 FL (87-102); Mean Platelet Volume 10.3 FL (9.6-12.0); Monocytes % 11.8 % (1.7-12.7); Neutrophils % 56.4 % (38.7-73.9); Platelet Count 206 T/CUMM (130-400); Red Blood Count 4.55 MC/CUMM (3.8-5.5); Red Cell Distribution Width 13.4 % (9.3-17.3); White Blood Count 6.9 T/CUMM (4-12)
[2019-03-06 05:30] LABS: Calcium 8.6 MG/DL (8.5-10.1); Osmolality,Calculated 286.5 MOS/KG (273-304)
[2019-03-06] MEDS: CARVEDILOL 3.125 MG TABLET PO SCH (08:40)
[2019-03-06] MEDS: LISINOPRIL 20 MG TABLET PO SCH (08:41)
[2019-03-06] MEDS: ASPIRIN EC 81 MG TABLET PO SCH (08:41)
[2019-03-06] MEDS: SIMVASTATIN 40 MG TABLET PO SCH (08:41)
[2019-03-06] MEDS: PANTOPRAZOLE 40 MG TABLET PO SCH (08:41)
[2019-03-06] MEDS: ASCORBIC ACID 500 MG TABLET PO SCH ×2 (08:41→21:27)
[2019-03-06] MEDS: DILTIAZEM CD 120 MG CAPSULE PO SCH (08:41)
[2019-03-06] MEDS: FUROSEMIDE 40 MG/4 ML VIAL IV SCH ×2 (08:41→16:35)
[2019-03-06] MEDS: ISOSORBIDE MONONITRATE 30 MG TABLET PO SCH (08:41)
[2019-03-06] MEDS: ENOXAPARIN 100 MG/ML SYRINGE SUBCUT SCH ×2 (08:42→21:27)
[2019-03-06] MEDS: INSULIN LISPRO 100 UNIT/ML SUBCUT SCH ×3 (08:59→21:27)
[2019-03-06] MEDS ORDERED: dilTIAZem Drip 125 MG/125 ML PREMIX IV SCH (10:00)
[2019-03-06] MEDS: DILTIAZEM CD 240 MG CAPSULE PO SCH (12:41)
[2019-03-06] MEDS: CARVEDILOL 6.25 MG TABLET PO SCH (16:36)
[2019-03-07 05:14] LABS: Calcium 8.4 MG/DL (8.5-10.1); Osmolality,Calculated 287.5 MOS/KG (273-304)
[2019-03-07 08:05] VITALS: BP 138/74
[2019-03-07] MEDS ORDERED: APIXABAN 5 MG TABLET PO SCH ×2 (09:00)
[2019-03-07] MEDS: FUROSEMIDE 40 MG/4 ML VIAL IV SCH (09:32)
[2019-03-07] MEDS: DILTIAZEM CD 240 MG CAPSULE PO SCH (09:33)
[2019-03-07] MEDS: LISINOPRIL 20 MG TABLET PO SCH (09:33)
[2019-03-07] MEDS: SIMVASTATIN 40 MG TABLET PO SCH (09:34)
[2019-03-07] MEDS: ASCORBIC ACID 500 MG TABLET PO SCH (09:34)
[2019-03-07] MEDS: ISOSORBIDE MONONITRATE 30 MG TABLET PO SCH (09:34)
[2019-03-07] MEDS: ASPIRIN EC 81 MG TABLET PO SCH (09:34)
[2019-03-07] MEDS: CARVEDILOL 6.25 MG TABLET PO SCH (09:36)
[2019-03-07] MEDS: INSULIN LISPRO 100 UNIT/ML SUBCUT SCH (09:44)
== END 2019-03-07 11:36 | disposition home or self-care (01) | DRG 291 ==
LOC: EDUNIT# → N.EDINP 13:11 → N.ED 13:11 → N.EDINP 16:00 → N.TELEN 16:11
PROVIDERS: ADMIT Internal Medicine; ATTEND Internal Medicine

== ENCOUNTER 2021-06-19 06:54 | Inpatient (IN) ==
[~2021-06-19 06:54] MED LIST: VANCOMYCIN INJ 1,000 MG in SODIUM CHLORIDE 0.9% 250 ML IV ONE
[2021-06-19 07:26] LABS: Basophils % 0.3 % (0.0-0.8); Eosinophils # 0.2 10*3/uL (0.0-0.87); Eosinophils % 1.5 % (0.00-10.9); Hematocrit 34.1 VOL% (42.0-52.0); Hemoglobin 10.5 GM/DL (14.0-18.0); Immature Granulocytes % 0.7 %; Immature Granulocytes Absolute 0.09 #; Lymphocytes # 1.4 10*3/uL (1.4-4.0); Lymphocytes % 11.1 % (21.2-54.2); Mean Corpuscular HGB Conc 30.8 GM/DL (32-36); Mean Corpuscular Volume 83.4 FL (87-102); Mean Platelet Volume 9.2 FL (9.6-12.0); Monocytes % 8.5 % (1.7-12.7); Neutrophils % 77.9 % (38.7-73.9); Platelet Count 504 T/CUMM (130-400); Red Blood Count 4.09 MC/CUMM (3.8-5.5); Red Cell Distribution Width 13.6 % (9.3-17.3); White Blood Count 12.3 T/CUMM (4-12)
[2021-06-19 07:36] LABS: INR 1.1; PT Patient Result 12.5 SECS (10.5-12.0); Partial Thromboplastin Time 33.9 SECS (23.9-33.8)
[2021-06-19 07:49] LABS: Albumin 2.6 G/DL (3.4-5.0); Bilirubin,Total 0.4 MG/DL (0.20-1.00); Calcium 9.1 MG/DL (8.5-10.1); Potassium 4.7 MMOL/L (3.5-5.1); Total Protein 8.4 G/DL (6.4-8.2)
[2021-06-19] MEDS ORDERED: LACTATED RINGERS 1,000 ML IV SCH (08:00)
[2021-06-19] MEDS ORDERED: DIAZEPAM 5 MG TABLET PO ONE (08:12)
[2021-06-19] MEDS ORDERED: FAMOTIDINE 20 MG TABLET PO ONE (08:12)
[2021-06-19] MEDS ORDERED: fentaNYL 100 MCG/2 ML VIAL ONE (08:42)
[2021-06-19] MEDS ORDERED: ONDANSETRON 4 MG/2 ML VIAL ONE (08:42)
[2021-06-19] MEDS ORDERED: propofoL 200 MG/20 ML VIAL IV ONE (08:42)
[2021-06-19] MEDS ORDERED: LIDOCAINE 2% 5 ML VIAL ONE (08:42)
[2021-06-19] MEDS ORDERED: BUPIVACAINE MPF 0.25% 30 ML VIAL ONE (08:52)
[2021-06-19] MEDS ORDERED: SODIUM CHLORIDE 0.9% 250 ML IV ONE (09:40)
[2021-06-19] MEDS ORDERED: ETOMIDATE 40 MG/20 ML VIAL IV ONE (09:40)
[2021-06-19] MEDS ORDERED: ePHEDrine 50 MG/ML VIAL ONE (09:57)
[2021-06-19] MEDS ORDERED: KETOROLAC 30 MG/1 ML VIAL ONE (10:02)
[2021-06-19] MEDS ORDERED: SEVOFLURANE 1 UNIT/15 MINUTE INH ONE (10:10)
[2021-06-19] MEDS ORDERED: DEXTROSE 50% 25 GM/50 ML VIAL IV PRN (10:11)
[2021-06-19] MEDS ORDERED: GLUCAGON 1 MG VIAL IM PRN (10:11)
[2021-06-19] MEDS ORDERED: HYDROmorphone 2 MG/1 ML VIAL IV PRN (10:11)
[2021-06-19] MEDS ORDERED: ONDANSETRON 4 MG/2 ML VIAL IV PRN (10:11)
[2021-06-19] MEDS: INSULIN REGULAR 100 UNIT/ML SUBCUT SCH ×3 (12:50→22:13)
[2021-06-19] MEDS ORDERED: INFLUENZA VIRUS VACCINE 0.5 ML SYRINGE IM ONE (12:54)
[2021-06-19] MEDS: KETOROLAC 10 MG TABLET PO SCH ×2 (14:41→22:13)
[2021-06-20] MEDS: KETOROLAC 10 MG TABLET PO SCH ×2 (03:51→09:08)
[2021-06-20] MEDS ORDERED: VANCOMYCIN INJ 1,000 MG in SODIUM CHLORIDE 0.9% 250 ML IV SCH (04:00)
[2021-06-20] MEDS: INSULIN REGULAR 100 UNIT/ML SUBCUT SCH ×2 (07:34→14:00)
[2021-06-20] MEDS ORDERED: ENOXAPARIN 40 MG/0.4 ML SYRINGE SUBCUT SCH (09:00)
[2021-06-20 12:10] VITALS: BP 163/57
[2021-06-20] MEDS ORDERED: ASPIRIN EC 81 MG TABLET PO SCH (15:00)
[2021-06-20] MEDS ORDERED: carvediloL 3.125 MG TABLET PO SCH (17:00)
[2021-06-20] MEDS ORDERED: lisinopriL 10 MG TABLET PO SCH (21:00)
[2021-06-20] MEDS ORDERED: ATORVASTATIN 40 MG TABLET PO SCH (21:00)
== END 2021-06-20 13:48 | disposition home or self-care (01) | DRG 256 ==
LOC: N.OR 06:54 → N.SDSINP 06:56 → N.5E 12:28
PROVIDERS: ADMIT Surgery; ATTEND Surgery

== ENCOUNTER 2021-07-11 10:20 | Observation (INO) ==
[~2021-07-11 10:20] MED LIST changes: +ASPIRIN 325 MG TABLET PO ONE; +DIAZEPAM 5 MG TABLET PO ONE; +MAGNESIUM SULF RIDER 2 GM/50 ML PREMIX IV PRN; +POTASSIUM CHLORIDE RIDER 10 MEQ/100 ML PREMIX IV PRN; -VANCOMYCIN INJ 1,000 MG in SODIUM CHLORIDE 0.9% 250 ML IV ONE; +diphenhydrAMINE CAP 50 MG CAPSULE PO ONE
[2021-07-11 11:11] LABS: Basophils % 0.3 % (0.0-0.8); Eosinophils # 0.2 10*3/uL (0.0-0.87); Eosinophils % 1.6 % (0.00-10.9); Hematocrit 29.9 VOL% (42.0-52.0); Hemoglobin 9.3 GM/DL (14.0-18.0); Immature Granulocytes % 0.3 %; Immature Granulocytes Absolute 0.03 #; Lymphocytes # 0.7 10*3/uL (1.4-4.0); Mean Corpuscular HGB Conc 31.1 GM/DL (32-36); Mean Corpuscular Volume 80.4 FL (87-102); Mean Platelet Volume 8.9 FL (9.6-12.0); Monocytes % 8.8 % (1.7-12.7); Platelet Count 367 T/CUMM (130-400); Red Blood Count 3.72 MC/CUMM (3.8-5.5); Red Cell Distribution Width 14.4 % (9.3-17.3); White Blood Count 9.3 T/CUMM (4-12)
[2021-07-11] MEDS ORDERED: diphenhydrAMINE CAP 50 MG CAPSULE ONE (11:20)
[2021-07-11] MEDS ORDERED: ASPIRIN 325 MG TABLET ONE (11:20)
[2021-07-11] MEDS ORDERED: DIAZEPAM 5 MG TABLET ONE (11:20)
[2021-07-11] MEDS: SODIUM CHLORIDE 0.9% 1,000 ML IV SCH ×2 (11:23→18:31)
[2021-07-11 11:26] LABS: INR 1.2; PT Patient Result 13.1 SECS (10.5-12.0)
[2021-07-11 11:35] LABS: Albumin 2.5 G/DL (3.4-5.0); Bilirubin,Total 0.6 MG/DL (0.20-1.00); Calcium 8.5 MG/DL (8.5-10.1); Osmolality,Calculated 278.1 MOS/KG (273-304); Potassium 4.1 MMOL/L (3.5-5.1); Total Protein 7.9 G/DL (6.4-8.2)
[2021-07-11] MEDS ORDERED: MIDAZOLAM 2 MG/2 ML VIAL ONE (13:06)
[2021-07-11] MEDS ORDERED: HYDROmorphone 2 MG/1 ML VIAL ONE (13:06)
[2021-07-11] MEDS ORDERED: HEPARIN 5,000 UNIT/1 ML VIAL ONE ×2 (13:43→14:58)
[2021-07-11] MEDS ORDERED: ONDANSETRON 4 MG/2 ML VIAL IV PRN (16:48)
[2021-07-11] MEDS ORDERED: NITROGLYCERIN SL 0.4 MG TABLET SL PRN (16:48)
[2021-07-11] MEDS ORDERED: ZALEPLON 5 MG CAPSULE PO PRN (16:48)
[2021-07-11] MEDS ORDERED: NITROGLYCERIN 0.4 MG SL PRN (16:49)
[2021-07-11] MEDS: ATORVASTATIN 40 MG TABLET PO SCH (22:05)
[2021-07-11] MEDS: FERROUS SULFATE 325 MG TABLET PO SCH (22:05)
[2021-07-11] MEDS: carvediloL 3.125 MG TABLET PO SCH (22:05)
[2021-07-11] MEDS: SULFAMETHOX/TRIMETHOPRIM 800-160 MG TABLET PO SCH (22:05)
[2021-07-12] MEDS: SODIUM CHLORIDE 0.9% 1,000 ML IV SCH ×2 (04:37→15:27)
[2021-07-12 06:10] LABS: Basophils % 0.3 % (0.0-0.8); Eosinophils # 0.2 10*3/uL (0.0-0.87); Eosinophils % 3.2 % (0.00-10.9); Hematocrit 24.5 VOL% (42.0-52.0); Hemoglobin 7.5 GM/DL (14.0-18.0); Immature Granulocytes % 0.3 %; Immature Granulocytes Absolute 0.02 #; Lymphocytes # 0.5 10*3/uL (1.4-4.0); Mean Corpuscular HGB Conc 30.6 GM/DL (32-36); Mean Corpuscular Volume 80.9 FL (87-102); Mean Platelet Volume 9.4 FL (9.6-12.0); Monocytes % 12.3 % (1.7-12.7); Neutrophils % 76.9 % (38.7-73.9); Platelet Count 285 T/CUMM (130-400); Red Blood Count 3.03 MC/CUMM (3.8-5.5); Red Cell Distribution Width 14.2 % (9.3-17.3); White Blood Count 7.1 T/CUMM (4-12)
[2021-07-12 06:40] LABS: Calcium 7.8 MG/DL (8.5-10.1); Osmolality,Calculated 276.2 MOS/KG (273-304); Potassium 4.1 MMOL/L (3.5-5.1)
[2021-07-12] MEDS: SULFAMETHOX/TRIMETHOPRIM 800-160 MG TABLET PO SCH ×2 (10:25→21:49)
[2021-07-12] MEDS: FERROUS SULFATE 325 MG TABLET PO SCH ×2 (10:25→21:50)
[2021-07-12] MEDS: ASPIRIN EC 81 MG TABLET PO SCH (10:25)
[2021-07-12] MEDS: carvediloL 3.125 MG TABLET PO SCH ×2 (10:26→21:50)
[2021-07-12] MEDS: MAGNESIUM CHLORIDE 64 MG TABLET PO SCH (10:26)
[2021-07-12] MEDS: CLOPIDOGREL 75 MG TABLET PO SCH (10:26)
[2021-07-12] MEDS: DOCUSATE SODIUM 100 MG CAPSULE PO SCH (10:26)
[2021-07-12] MEDS ORDERED: ACETAMINOPHEN 325 MG TABLET PO PRN ×2 (11:11→11:15)
[2021-07-12] MEDS ORDERED: SODIUM CHLORIDE 0.9% 1,000 ML IV PRN (11:13)
[2021-07-12] MEDS ORDERED: GLUCAGON 1 MG VIAL IM PRN (13:18)
[2021-07-12] MEDS ORDERED: DEXTROSE 50% 25 GM/50 ML VIAL IV PRN (13:18)
[2021-07-12] MEDS: COLLAGENASE OINT 30 GM TUBE TOP SCH (15:27)
[2021-07-12] MEDS: INSULIN LISPRO 100 UNIT/ML SUBCUT SCH ×2 (18:15→21:51)
[2021-07-12] MEDS ORDERED: glipiZIDE 5 MG TABLET PO SCH (19:00)
[2021-07-12] MEDS ORDERED: lisinopriL 10 MG TABLET PO SCH (21:00)
[2021-07-12] MEDS ORDERED: FUROSEMIDE 40 MG/4 ML VIAL IV ONE (21:32)
[2021-07-12] MEDS: ATORVASTATIN 40 MG TABLET PO SCH (21:51)
[2021-07-13 05:18] LABS: Basophils % 0.4 % (0.0-0.8); Eosinophils # 0.2 10*3/uL (0.0-0.87); Eosinophils % 2.7 % (0.00-10.9); Hematocrit 29.7 VOL% (42.0-52.0); Immature Granulocytes % 0.5 %; Immature Granulocytes Absolute 0.04 #; Lymphocytes # 0.5 10*3/uL (1.4-4.0); Lymphocytes % 6.4 % (21.2-54.2); Mean Corpuscular Volume 80.3 FL (87-102); Mean Platelet Volume 9.4 FL (9.6-12.0); Monocytes % 11.1 % (1.7-12.7); Neutrophils % 78.9 % (38.7-73.9); Platelet Count 282 T/CUMM (130-400); Red Cell Distribution Width 14.4 % (9.3-17.3); White Blood Count 8.5 T/CUMM (4-12)
[2021-07-13 05:28] LABS: Hemoglobin 9.2 GM/DL (14.0-18.0)
[2021-07-13 05:39] LABS: Calcium 7.9 MG/DL (8.5-10.1)
[2021-07-13] MEDS: DOCUSATE SODIUM 100 MG CAPSULE PO SCH (08:31)
[2021-07-13] MEDS: carvediloL 3.125 MG TABLET PO SCH (08:32)
[2021-07-13] MEDS: MAGNESIUM CHLORIDE 64 MG TABLET PO SCH (08:32)
[2021-07-13] MEDS: SULFAMETHOX/TRIMETHOPRIM 800-160 MG TABLET PO SCH (08:33)
[2021-07-13] MEDS: CLOPIDOGREL 75 MG TABLET PO SCH (08:33)
[2021-07-13] MEDS: ASPIRIN EC 81 MG TABLET PO SCH (08:33)
[2021-07-13] MEDS: FERROUS SULFATE 325 MG TABLET PO SCH (08:33)
[2021-07-13] MEDS: COLLAGENASE OINT 30 GM TUBE TOP SCH (08:34)
[2021-07-13] MEDS: INSULIN LISPRO 100 UNIT/ML SUBCUT SCH ×2 (08:40→12:04)
[2021-07-13] MEDS ORDERED: glipiZIDE 10 MG TABLET PO SCH (09:00)
[2021-07-13] MEDS ORDERED: FUROSEMIDE 40 MG TABLET PO SCH (09:00)
[2021-07-13] MEDS: SODIUM CHLORIDE 0.9% 1,000 ML IV SCH (12:04)
[2021-07-13 12:24] VITALS: BP 152/63
== END 2021-07-13 12:30 | disposition home or self-care (01) ==
LOC: N.3E 10:20 → N.CL 10:20 → N.3E 16:57 → UNDODISOB 07-13 12:50
PROVIDERS: ADMIT Internal Medicine Cardiovascular Disease; ATTEND Internal Medicine Cardiovascular Disease

== ENCOUNTER 2021-09-26 06:43 | Inpatient (IN) ==
[2021-09-23 16:53] LABS: Basophils % 0.6 % (0.0-0.8); Eosinophils # 0.2 10*3/uL (0.0-0.87); Eosinophils % 2.8 % (0.00-10.9); Hematocrit 29.4 VOL% (42.0-52.0); Immature Granulocytes % 0.6 %; Immature Granulocytes Absolute 0.03 #; Lymphocytes # 0.9 10*3/uL (1.4-4.0); Lymphocytes % 15.6 % (21.2-54.2); Mean Corpuscular HGB Conc 30.6 GM/DL (32-36); Mean Corpuscular Volume 84.5 FL (87-102); Mean Platelet Volume 10.3 FL (9.6-12.0); Neutrophils % 69.4 % (38.7-73.9); Platelet Count 265 T/CUMM (130-400); Red Blood Count 3.48 MC/CUMM (3.8-5.5); White Blood Count 5.4 T/CUMM (4-12)
[2021-09-23 17:02] LABS: INR 1.2; PT Patient Result 13.2 SECS (10.5-12.0)
[2021-09-23 17:10] LABS: Alanine Aminotransferase 33 U/L (16-61); Albumin 2.7 G/DL (3.4-5.0); Alkaline Phosphatase 91 U/L (45-117); Aspartate Amino Transferase 20 U/L (0-37); Bilirubin,Total < 0.39 MG/DL (0.20-1.00); Blood Urea Nitrogen 35 MG/DL (7-18); Calcium 8.2 MG/DL (8.5-10.1); Carbon Dioxide 23 MMOL/L (21-32); Estimated Glom Filtration Rate 35 ML/MIN; Glucose 200 MG/DL (74-106); Potassium 4.6 MMOL/L (3.5-5.1); Sodium 136 MMOL/L (136-145); Total Protein 7.8 G/DL (6.4-8.2)
[~2021-09-26 06:43] MED LIST changes: -ASPIRIN 325 MG TABLET PO ONE; -DIAZEPAM 5 MG TABLET PO ONE; +LACTATED RINGERS 1,000 ML IV SCH; -MAGNESIUM SULF RIDER 2 GM/50 ML PREMIX IV PRN; -POTASSIUM CHLORIDE RIDER 10 MEQ/100 ML PREMIX IV PRN; +VANCOMYCIN INJ 1,000 MG in SODIUM CHLORIDE 0.9% 250 ML IV ONE; -diphenhydrAMINE CAP 50 MG CAPSULE PO ONE
[2021-09-26] MEDS ORDERED: LIDOCAINE 2% 5 ML VIAL ONE (09:48)
[2021-09-26] MEDS ORDERED: propofoL 200 MG/20 ML VIAL IV ONE (09:48)
[2021-09-26] MEDS ORDERED: ePHEDrine 50 MG/ML VIAL ONE (10:25)
[2021-09-26] MEDS ORDERED: ONDANSETRON 4 MG/2 ML VIAL ONE ×2 (10:46→11:47)
[2021-09-26] MEDS ORDERED: ACETAMINOPHEN INJ 1,000 MG/100 ML VIAL IV ONE (10:46)
[2021-09-26] MEDS ORDERED: KETOROLAC 30 MG/1 ML VIAL ONE (10:46)
[2021-09-26] MEDS ORDERED: fentaNYL 100 MCG/2 ML VIAL ONE (10:53)
[2021-09-26] MEDS ORDERED: HYDROmorphone 2 MG/1 ML VIAL IV PRN (11:14)
[2021-09-26] MEDS ORDERED: DEXTROSE 10% 250 ML BAG IV PRN (11:14)
[2021-09-26] MEDS ORDERED: GLUCAGON 1 MG VIAL IM PRN (11:14)
[2021-09-26] MEDS ORDERED: KETOROLAC 10 MG TABLET PO PRN (11:14)
[2021-09-26] MEDS ORDERED: BISACODYL 5 MG TABLET PO PRN (11:14)
[2021-09-26] MEDS ORDERED: oxyCODONE/ACETAMINOPHEN 5-325 MG TABLET PO PRN (11:14)
[2021-09-26] MEDS ORDERED: NITROGLYCERIN SL 0.4 MG TABLET SL PRN (11:20)
[2021-09-26] MEDS ORDERED: ONDANSETRON 4 MG/2 ML VIAL IV PRN (11:44)
[2021-09-26] MEDS ORDERED: MEPERIDINE 25 MG/1 ML VIAL IV PRN (11:44)
[2021-09-26] MEDS ORDERED: MEPERIDINE 25 MG/1 ML VIAL ONE (11:47)
[2021-09-26] MEDS ORDERED: PNEUMOCOCCAL VACCINE (13 VALENT) 0.5 ML SYRINGE IM ONE (12:49)
[2021-09-26] MEDS: LACTATED RINGERS 1,000 ML IV SCH ×2 (13:05→20:57)
[2021-09-26 13:31] LABS: Hematocrit 25.8 VOL% (42.0-52.0)
[2021-09-26] MEDS: ASPIRIN EC 81 MG TABLET PO SCH (14:30)
[2021-09-26] MEDS: oxyCODONE/ACETAMINOPHEN 5-325 MG TABLET PO PRN (14:34)
[2021-09-26] MEDS: ONDANSETRON 4 MG/2 ML VIAL IV PRN (16:23)
[2021-09-26] MEDS: FERROUS SULFATE 325 MG TABLET PO SCH (16:23)
[2021-09-26] MEDS: carvediloL 3.125 MG TABLET PO SCH (16:24)
[2021-09-26] MEDS: ATORVASTATIN 40 MG TABLET PO SCH (20:55)
[2021-09-26] MEDS: lisinopriL 10 MG TABLET PO SCH (20:56)
[2021-09-26] MEDS ORDERED: SULFAMETHOX/TRIMETHOPRIM 800-160 MG TABLET PO SCH (21:00)
[2021-09-27] MEDS: LACTATED RINGERS 1,000 ML IV SCH (05:00)
[2021-09-27 06:08] LABS: Basophils % 0.4 % (0.0-0.8); Eosinophils # 0.2 10*3/uL (0.0-0.87); Eosinophils % 3.2 % (0.00-10.9); Hemoglobin 7.4 GM/DL (14.0-18.0); Immature Granulocytes % 0.5 %; Immature Granulocytes Absolute 0.03 #; Lymphocytes # 0.6 10*3/uL (1.4-4.0); Lymphocytes % 10.5 % (21.2-54.2); Mean Corpuscular HGB Conc 30.8 GM/DL (32-36); Mean Corpuscular Volume 85.1 FL (87-102); Mean Platelet Volume 9.5 FL (9.6-12.0); Monocytes % 9.8 % (1.7-12.7); Neutrophils % 75.6 % (38.7-73.9); Platelet Count 203 T/CUMM (130-400); Red Blood Count 2.82 MC/CUMM (3.8-5.5); Red Cell Distribution Width 16.7 % (9.3-17.3); White Blood Count 5.7 T/CUMM (4-12)
[2021-09-27 06:31] LABS: Calcium 7.6 MG/DL (8.5-10.1); Osmolality,Calculated 284.7 MOS/KG (273-304); Potassium 4.6 MMOL/L (3.5-5.1)
[2021-09-27] MEDS: VANCOMYCIN INJ 1,500 MG in SODIUM CHLORIDE 0.9% 500 ML IV SCH (06:35)
[2021-09-27] MEDS: ENOXAPARIN 30 MG/0.3 ML SYRINGE SUBCUT SCH ×2 (06:46→17:36)
[2021-09-27] MEDS: glipiZIDE 10 MG TABLET PO SCH (08:19)
[2021-09-27] MEDS: FERROUS SULFATE 325 MG TABLET PO SCH ×2 (08:19→17:36)
[2021-09-27] MEDS: ASPIRIN EC 81 MG TABLET PO SCH (08:19)
[2021-09-27] MEDS: MAGNESIUM CHLORIDE 64 MG TABLET PO SCH (08:20)
[2021-09-27] MEDS: carvediloL 3.125 MG TABLET PO SCH ×2 (08:20→17:36)
[2021-09-27] MEDS: DOCUSATE SODIUM 100 MG CAPSULE PO SCH (08:20)
[2021-09-27] MEDS ORDERED: GLUCAGON 1 MG VIAL IM PRN (10:35)
[2021-09-27] MEDS ORDERED: DEXTROSE 50% 25 GM/50 ML VIAL IV PRN (10:35)
[2021-09-27] MEDS: INSULIN REGULAR 100 UNIT/ML SUBCUT SCH ×3 (11:33→20:20)
[2021-09-27] MEDS: glipiZIDE 5 MG TABLET PO SCH (17:36)
[2021-09-27] MEDS: oxyCODONE/ACETAMINOPHEN 5-325 MG TABLET PO PRN (18:49)
[2021-09-27] MEDS: ONDANSETRON 4 MG/2 ML VIAL IV PRN (18:51)
[2021-09-27] MEDS: lisinopriL 10 MG TABLET PO SCH (20:19)
[2021-09-27] MEDS: ATORVASTATIN 40 MG TABLET PO SCH (20:19)
[2021-09-28] MEDS: VANCOMYCIN INJ 1,500 MG in SODIUM CHLORIDE 0.9% 500 ML IV SCH (06:00)
[2021-09-28] MEDS: ENOXAPARIN 30 MG/0.3 ML SYRINGE SUBCUT SCH (06:01)
[2021-09-28] MEDS: INSULIN REGULAR 100 UNIT/ML SUBCUT SCH ×4 (08:53→20:49)
[2021-09-28] MEDS: MAGNESIUM CHLORIDE 64 MG TABLET PO SCH (08:54)
[2021-09-28] MEDS: ASPIRIN EC 81 MG TABLET PO SCH (08:54)
[2021-09-28] MEDS: carvediloL 3.125 MG TABLET PO SCH ×2 (08:54→17:06)
[2021-09-28] MEDS: DOCUSATE SODIUM 100 MG CAPSULE PO SCH (08:54)
[2021-09-28] MEDS: FERROUS SULFATE 325 MG TABLET PO SCH ×2 (08:54→17:06)
[2021-09-28] MEDS: glipiZIDE 10 MG TABLET PO SCH (08:54)
[2021-09-28] MEDS: FUROSEMIDE 40 MG TABLET PO SCH (09:10)
[2021-09-28] MEDS: glipiZIDE 5 MG TABLET PO SCH (17:06)
[2021-09-28] MEDS: ATORVASTATIN 40 MG TABLET PO SCH (20:49)
[2021-09-28] MEDS: lisinopriL 10 MG TABLET PO SCH (20:49)
[2021-09-28] MEDS: RIVAROXABAN 2.5 MG TABLET PO SCH (20:49)
[2021-09-29] MEDS: oxyCODONE/ACETAMINOPHEN 5-325 MG TABLET PO PRN (00:07)
[2021-09-29] MEDS: VANCOMYCIN INJ 1,500 MG in SODIUM CHLORIDE 0.9% 500 ML IV SCH (06:04)
[2021-09-29] MEDS: carvediloL 3.125 MG TABLET PO SCH ×2 (09:14→18:08)
[2021-09-29] MEDS: glipiZIDE 10 MG TABLET PO SCH (09:14)
[2021-09-29] MEDS: FERROUS SULFATE 325 MG TABLET PO SCH ×2 (09:14→18:08)
[2021-09-29] MEDS: ASPIRIN EC 81 MG TABLET PO SCH (09:14)
[2021-09-29] MEDS: MAGNESIUM CHLORIDE 64 MG TABLET PO SCH (09:14)
[2021-09-29] MEDS: FUROSEMIDE 40 MG TABLET PO SCH (09:15)
[2021-09-29] MEDS: INSULIN REGULAR 100 UNIT/ML SUBCUT SCH ×4 (09:17→21:10)
[2021-09-29] MEDS: RIVAROXABAN 2.5 MG TABLET PO SCH ×2 (09:17→20:57)
[2021-09-29] MEDS: DOCUSATE SODIUM 100 MG CAPSULE PO SCH (09:17)
[2021-09-29] MEDS: glipiZIDE 5 MG TABLET PO SCH (18:08)
[2021-09-29] MEDS: ATORVASTATIN 40 MG TABLET PO SCH (20:57)
[2021-09-29] MEDS: lisinopriL 10 MG TABLET PO SCH (20:57)
[2021-09-30 07:12] LABS: Calcium 7.9 MG/DL (8.5-10.1); Osmolality,Calculated 281.5 MOS/KG (273-304); Potassium 4.2 MMOL/L (3.5-5.1)
[2021-09-30] MEDS: INSULIN REGULAR 100 UNIT/ML SUBCUT SCH ×4 (08:35→21:07)
[2021-09-30] MEDS: carvediloL 3.125 MG TABLET PO SCH ×2 (10:20→18:28)
[2021-09-30] MEDS: DOCUSATE SODIUM 100 MG CAPSULE PO SCH (10:20)
[2021-09-30] MEDS: FERROUS SULFATE 325 MG TABLET PO SCH ×2 (10:20→18:28)
[2021-09-30] MEDS: ASPIRIN EC 81 MG TABLET PO SCH (10:20)
[2021-09-30] MEDS: glipiZIDE 10 MG TABLET PO SCH (10:20)
[2021-09-30] MEDS: RIVAROXABAN 2.5 MG TABLET PO SCH ×2 (10:21→21:07)
[2021-09-30] MEDS: FUROSEMIDE 40 MG TABLET PO SCH (10:21)
[2021-09-30] MEDS: MAGNESIUM CHLORIDE 64 MG TABLET PO SCH (10:21)
[2021-09-30] MEDS: CIPROFLOXACIN INJ 400 MG/200 ML PREMIX IV SCH ×2 (12:00→23:03)
[2021-09-30] MEDS: glipiZIDE 5 MG TABLET PO SCH (18:28)
[2021-09-30] MEDS: ATORVASTATIN 40 MG TABLET PO SCH (21:07)
[2021-09-30] MEDS: lisinopriL 10 MG TABLET PO SCH (21:07)
[2021-10-01] MEDS: INSULIN REGULAR 100 UNIT/ML SUBCUT SCH ×2 (09:06→12:56)
[2021-10-01] MEDS: FERROUS SULFATE 325 MG TABLET PO SCH (09:17)
[2021-10-01] MEDS: carvediloL 3.125 MG TABLET PO SCH (09:17)
[2021-10-01] MEDS: DOCUSATE SODIUM 100 MG CAPSULE PO SCH (09:17)
[2021-10-01] MEDS: ASPIRIN EC 81 MG TABLET PO SCH (09:17)
[2021-10-01] MEDS: glipiZIDE 10 MG TABLET PO SCH (09:18)
[2021-10-01] MEDS: RIVAROXABAN 2.5 MG TABLET PO SCH (09:18)
[2021-10-01] MEDS: MAGNESIUM CHLORIDE 64 MG TABLET PO SCH (09:18)
[2021-10-01 12:14] VITALS: BP 153/71
[2021-10-01] MEDS: CIPROFLOXACIN INJ 400 MG/200 ML PREMIX IV SCH (14:10)
== END 2021-10-01 15:10 | disposition home health service (06) | DRG 617 ==
LOC: N.OR 06:43 → N.SDSINP 06:46 → N.3E 12:33
PROVIDERS: ADMIT Surgery; ATTEND Surgery